=== PATIENT | male | born 1935 | race Caucasian/White ===

== ENCOUNTER 2023-01-08 09:15 | Outpatient (RCR) | payer MEDICARE, SELFPAY ==
--- NOTE | 2022-12-05 13:27 | OPREHPOC ---
Outpatient Therapy Plan of Care This is a Multidisciplinary Plan of Care that may contain components documented by all disciplines (PT, OT, and ST.) PT Problem 1 PT Problem #1 Knowledge Deficit PT Goal 1 Goal Independent with HEP Target Visit 8 PT Problem 2 PT Problem #2 Pain PT Goal 1 Goal decrease to pain to 1/10 with stairs and walking up hills Target Visit 8 PT Problem 3 PT Problem #3 Impaired Flexibility PT Goal 1 Goal -30 degrees VALARIE hamstrings Target Visit 8 PT Goal 2 Goal centralization of symptoms to hip or higher Target Visit 8 PT Problem 4 PT Problem #4 Impaired Strength PT Goal 1 Goal VALARIE hips extension and abduction 4/5 Target Visit 8
--- NOTE | 2022-12-05 13:27 | PTOPEVAL1 ---
Assessment and note entered by Zeus Crump, PT Evaluation Information Assessment Status Evaluation Diagnosis Sacroiliac joint pain Onset 1 year Subjective Information Patient report having back surgery 15 years ago and about a year ago noticing more pain in her R back along with sciatic symptoms down the R leg, but only to about the knee. The patient has trouble walking up hills picking up heavy objects, going up and down steps and curbs, laying on the R side, and putting on pants in standing position. Patient has had multiple injections in his back, PSIS, and greater trochanteric bursa. Was previously going to therapy up in [place] where therapist told him he had a gluteal tear. The patient also uses Tylenol about 80% of the nights before bed and uses Blue Emu and stands in the hot shower on the area as other forms of pain relief. Patient walking with a cane because he does not trust his balance and it does somewhat relieve the pain. Reported Pain Level Pain Score 1: Self Report Assessment PT Clinical Summary Hitesh is an 87 year old male coming into the clinic with a diagnosis of R PSIS pain with radiating symptoms down to the knee on the R side. Patient has tight calfs, hamstrings, and piriformis to go with weakness in his core and hip abduction and extension. Patient does have a positive slump test, but no other special tests. Physical therapy will work on stretching and strengthening of the lower body to put him in better alignment and modalities and manual therapy as needed for pain. Plan of Care Interventions Electrical Stimulation,Gait Training,Hot Pack/Cold Pack,Manual Therapy,Neuro Re-education,Patient/ Caregiver Education,Therapeutic Activities, Therapeutic Exercise,Ultrasound Other Interventions cupping, taping, IASTM PT Services Indicated Yes Treatment Frequency and 2x/wk for 4 weeks Duration These treatments will address the objective and functional deficits as defined above. The patient will be advanced safely and appropriately in order for the patient to progress towards his/her prior level of function. Additional exercises will be introduced and as well as a comprehensive home exercise program upon discharge, if needed, ?to ensure carryover of functional gains achieved in the clinic. This treatment plan has been reviewed and agreement upon by the patient.
--- NOTE | 2023-01-02 11:48 | PTOPPROG ---
Assessment and note entered by Zeus Crump, PT Evaluation Information Assessment Status Progress Diagnosis SI joint Onset 1 year Subjective Information Patient reports that he is able to walk more and get around easier, but is having more pain not only down the RLE which is where everything started , but also down the LLE. Patient states that he wants to keep on doing therapy, because he would rather be in a little bit of pain and getting out and moving around than sitting in his chair in his house and doing nothing but not being in pain. Assessment PT Clinical Summary Hitesh is an 87 year old male coming into the clinic with a diagnosis of SI joint pain. Patient was evaluated on 12/05/22. Patient has attended 8 sessions and met his strengthening and flexibility goal, but not his pain goals, in fact pain is worse. Patient reports being immobile for a while before this and is moving around better, but increased pain. Physical therapy and patient discussed that the pain is still under 5/10 and may be increased while the body is getting adjusted to increased flexibility and muscle pull. Patient and therapist are okay with continuing therapy as long as pain does not increase to severe pain. Plan of Care Interventions Electrical Stimulation,Gait Training,Hot Pack/Cold Pack,Manual Therapy,Neuro Re-education,Patient/ Caregiver Education,Therapeutic Activities, Therapeutic Exercise,Ultrasound Other Interventions cupping, taping, IASTM PT Services Indicated Yes Treatment Frequency and 1-x/wk 4 visits Duration These treatments will address the objective and functional deficits as defined above. The patient will be advanced safely and appropriately in order for the patient to progress towards his/her prior level of function. Additional exercises will be introduced and as well as a comprehensive home exercise program upon discharge, if needed, ?to ensure carryover of functional gains achieved in the clinic. This treatment plan has been reviewed and agreement upon by the patient.
--- NOTE | 2023-01-08 10:25 | PTOPDC ---
Assessment and note entered by Zeus Crump, PT Evaluation Information Assessment Status Discharge - Pt Not Present Diagnosis SI joint Onset 1 year Subjective Information Patient was re-evaluated last week and after thinking about it over the weekend, patient thinks he is good with his HEP and wishes to be discharged. Reported Pain Level Pain Score 2: Self Report Assessment PT Clinical Summary Hitesh is an 87 year old male coming into the clinic with a diagnosis of SI joint pain. Patient was evaluated on 12/05/22. Patient has attended 8 sessions and met his strengthening and flexibility goal, but not his pain goals, in fact pain is worse. Patient reports being immobile for a while before this and is moving around better, but increased pain. Physical therapy and patient discussed at length pros and cons of continuing therapy and after thinking about it over the weekend patient has elected to be discharged. Plan of Care PT Services Indicated Yes
== END 2023-01-08 10:47 | disposition home or self-care (01) ==
LOC: ANHPT 09:15
PROVIDERS: PCP Family Medicine; Visit Provider Chiropractor
DX: M53.3 Sacrococcygeal disorders, not elsewhere classified (principal)
CPT/HCPCS: 97110; 97112; 97140; 97161; 97530

== ENCOUNTER 2023-02-16 18:54 | Inpatient (IN) | payer MEDICARE, SELFPAY ==
--- NOTE | ~2023-02-16 | CT_ITS ---
CT of the Abdomen and Pelvis: Indication: Abdominal Technique: 2.5 mm axial scans were obtained through the abdomen and pelvis following intravenous adm inistration of 100 cc of Omnipaque 350. Dose reduction technique was used on this scan by utilizing a utomated exposure control and iterative reconstruction technique. The dose-length product (DLP) was 8 09.34 mGy-cm. Findings: Scans through the lung bases demonstrate mild bibasilar atelectatic change. The liver, spleen, pancreas, and adrenal glands are within normal limits. There is probable mild gall bladder wall thickening. Parapelvic renal cysts are present. No evidence of aortic aneurysm. No lymp hadenopathy. There is a large left inguinal hernia, containing a large portion of the sigmoid colon and mesenteric fat. No bowel obstruction or bowel wall thickening seen. There is mild colonic diverticulosis. Images through the pelvis were performed. Urinary bladder unremarkable. Prostate gland is enlarged. N o ascites. Impression: Distended gallbladder with mild gallbladder wall thickening. Consider mild acute cholecystitis. Consi carley ultrasound and/or HIDA scan for further evaluation as indicated. Large left regarding containing a large portion of sigmoid colon and mesenteric fat. No bowel obstruc tion or bowel wall thickening. Reviewed, dictated and finalized at location M. Impression: Distended gallbladder with mild gallbladder wall thickening. Consider mild acut e cholecystitis. Consider ultrasound and/or HIDA scan for further evaluation as indicated. Large left regarding containing a large portion of sigmoid colon and mesenteric fat. No bowel obstruction or bowel wall thickening.
[2023-02-16 18:54] VITALS: BP 189/86; PULSE 88; RESP 16; TEMP 36.6; O2SAT 99
--- NOTE | 2023-02-16 19:01 | ECG_ITS ---
Measurements Intervals [place] Rate: 78 P: 81 ND: 197 QRS: -18 QRSD: 144 T: -3 QT: 365 QTc: 417 Interpretive Statements SINUS RHYTHM ATRIAL PREMATURE COMPLEX RIGHT BUNDLE BRANCH BLOCK ABNORMAL ECG NO PREVIOUS ECG AVAILABLE FOR COMPARISON Electronically Signed On 02-16-2023 19:47:40 CDT by Guanaco Casillas D.O.
[2023-02-16 19:13] LABS: Basophils Percent Auto 0.4 % (0.2-1.2); Eosinophils Absolute Auto 0.4 K/mm3 (0-0.3); Eosinophils Percent Auto 3.7 % (0-4.4); Hematocrit 44.9 % (42.0-52.0); Immature Granulocyte Absolute 0.05 K/mm3 (0.00-0.031); Immature Granulocyte Percent A 0.5 % (0-0.5); Lymphocytes Absolute Auto 1.41 K/mm3 (0.9-3.2); Lymphocytes Percent Auto 13.5 % (18.3-44.2); Mean Corpuscular HGB Conc 33.4 g/dl (32-36); Mean Corpuscular Hemoglobin 31.9 pg (26-34); Mean Corpuscular Volume 95.5 fl (80-100); Mean Platelet Volume 9.5 fl (7.4-10.4); Monocytes Percent Auto 9.6 % (2.6-8.5); Neutrophils Absolute Auto 7.6 K/mm3 (1.3-6.7); Neutrophils Percent Auto 72.3 % (45.5-73.1); Platelet Count Result 262 k/mm3 (150-375); Red Cell Distribution Width 13.2 % (11.5-14.5); White Blood Count 10.5 K/mm3 (4.5-10.0)
[2023-02-16 19:22] LABS: Alanine Aminotransferase 55 U/L (6-50); Albumin Level 4.2 g/dL (3.5-5.1); Alkaline Phosphatase 128 U/L (38-126); Anion Gap 6 mmol/L (8-16); Aspartate Amino Transferase 36 U/L (17-59); Bilirubin,Total 0.4 mg/dL (0.2-1.3); Blood Urea Nitrogen 29 mg/dL (9-20); Calcium 9.3 mg/dL (8.4-10.2); Carbon Dioxide 26 mmol/L (22-30); Chloride 107 mmol/L (98-107); Estimated CRCL calculation 36 ml/min; Estimated Glomerular Filt Rate 48; Glucose 139 mg/dL (65-110); Lipase 212 U/L (23-300); Potassium 4.1 mmol/L (3.4-5.0); Sodium 139 mmol/L (137-145)
[2023-02-16] MEDS: ACETAMINOPHEN 500 MG TABLET 1000 MG PO (21:06)
[2023-02-16 21:08] VITALS: BP 189/89; PULSE 75; RESP 18; O2SAT 97
[2023-02-17] VITALS (16 sets, daily range): BP systolic 138–186; BP diastolic 58–98; PULSE 67–99; RESP 14–22; TEMP 35.8–37; O2SAT 91–100; BMI 30.7
[2023-02-17] MEDS: MORPHINE SULFATE (*CRX) 2 MG/ML INJ IV PUSH (01:12)
[2023-02-17 01:18] LABS: Appearance Urine Clear (Clear); Bacteria Urine None Seen /hpf; Bilirubin Urine Negative (Negative); Blood Urine Negative (Negative); Color Urine Yellow (Yellow); Glucose Urine UA Negative (Negative); Ketones Urine Negative (Negative); Leukocyte Esterase Ur Negative LEU/UL (Negative); Nitrate Urine Negative (Negative); Protein Urine 1+ mg/dL (Negative); RBC Urine 0-2 /hpf (0-2); Specific Grav Ur 1.022 (1.001-1.035); Squamous Epithelial Cell Urine None seen /hpf (Few); Urobilinogen Urine 0.2 mg/dL (<2.0); WBC Urine 0-5 /hpf
[2023-02-17 01:21] LABS: Lipase 179 U/L (23-300)
[2023-02-17 01:34] LABS: Add Urine Microscopic? YES; Troponin I 0.018 ng/mL (0.000-0.034)
--- NOTE | 2023-02-17 03:18 | PC.NURSE ---
Assumed care of pt from BRAEDEN Boucher at this time.
--- NOTE | 2023-02-17 04:19 | ED.ABDPAIN ---
HPI - Abdominal Pain General Chief Complaint: Abdominal Pain Stated Complaint: epigastric/back pain Time Seen by Provider: 02/17/23 00:27 History of Present Illness HPI narrative: Patient presents to the emergency department from home with family. He has severe right upper quadrant pain that radiates around to his back. Denies nausea vomiting and diarrhea. Denies fevers chills. Overall patient is generally healthy. His contributes to the history and states he also has a history of enlarged prostate. Patient states he has been seeing urology. Related Data Home Medications Medication Instructions Recorded Confirmed alprazolam 0.25 mg tablet mg 02/17/23 donepezil 5 mg tablet mg 02/17/23 famotidine 20 mg tablet mg 02/17/23 finasteride 5 mg tablet mg 02/17/23 losartan 25 mg tablet mg 02/17/23 tamsulosin 0.4 mg capsule mg PO 02/17/23 Review of Systems Review of Systems: CONSTITUTIONAL: Denies fever, chills, or sweats. EYES: Denies visual changes, redness, or discharge. ENT: Denies rhinorrhea, congestion, sore throat, or otalgia. CARDIOVASCULAR: Denies chest pain, palpitations, or edema. RESPIRATORY: Denies cough or dyspnea. GASTROINTESTINAL: Denies nausea, vomiting, or diarrhea. Positive for abdominal pain GENITOURINARY: Denies dysuria or hematuria. SKIN: Denies rash or itching. MUSCULOSKELETAL: Denies joint pain, or myalgia. Positive for back pain NEUROLOGIC: Denies headache, numbness, or weakness. PSYCHIATRIC: Denies anxiety or depression. Exam Narrative: GENERAL: Well-appearing, well-nourished, and in no acute distress. HEAD: Normocephalic, atraumatic. EYES: PERRLA and EOMI. ENT: Nares clear, no rhinorrhea or epistaxis. Mucous membranes moist. NECK: Supple. CHEST: Clear to auscultation. No respiratory distress. HEART: Regular rate and rhythm. ABDOMEN: Soft, nontender, nondistended. EXTREMITIES: Normal range of motion. No edema. SKIN: Warm, dry, no rash. NEURO: No focal deficits. Alert and oriented x3. PSYCH: Normal mood and affect. Course Course Emergency Course: Differential diagnosis includes but not limited to cholecystitis, kidney stone, pyelonephritis, pneumonia Telemetry ordered due to upper abdominal pain/chest pain to evaluate for dysrhythmias. Evaluated by myself. Rhythm NSR Rate 65 Vital Signs Vital signs: Vital Signs Temperature 36.6 C 02/16/23 18:54 Pulse Rate 88 02/16/23 18:54 Respiratory Rate 16 02/16/23 18:54 Blood Pressure 189/86 H 02/16/23 18:54 Pulse Oximetry 99 02/16/23 18:54 Temperature 36.6 C 02/16/23 18:54 Pulse Rate 76 02/17/23 00:35 Respiratory Rate 15 02/17/23 00:35 Blood Pressure 186/88 H 02/17/23 00:35 Pulse Oximetry 98 02/17/23 00:35 MDM - Abdominal Pain MDM Narrative Medical decision making narrative: CT positive for acute cholecystitis. Patient admitted to hospitalist after consulting general surgery. Zosyn ordered. Patient kept NPO. Lab Data 02/16/23 19:04 02/16/23 19:04 Labs: Lab Results 02/16/23 02/17/23 02/17/23 Range/Units 19:04 00:57 00:57 WBC 10.5 H (4.5-10.0) K/mm3 RBC 4.70 (4.6-6.20) M/mm3 Hgb 15.0 (14.0-18.0) g/dL Hct 44.9 (42.0-52.0) % MCV 95.5 (80-100) fl MCH 31.9 (26-34) pg MCHC 33.4 (32-36) g/dl RDW 13.2 (11.5-14.5) % Plt Count 262 (150-375) k/mm3 MPV 9.5 (7.4-10.4) fl Immature Gran % (Auto) 0.5 (0-0.5) % Neut % (Auto) 72.3 (45.5-73.1) % Lymph % (Auto) 13.5 L (18.3-44.2) % [place] % (Auto) 9.6 H (2.6-8.5) % Eos % (Auto) 3.7 (0-4.4) % Baso % (Auto) 0.4 (0.2-1.2) % Lymph # (Auto) 1.41 (0.9-3.2) K/mm3 [place] # (Auto) 1.0 H (0.1-0.6) K/mm3 Eos # (Auto) 0.4 H (0-0.3) K/mm3 Baso # (Auto) 0.0 (0.0-0.1) K/mm3 Abs Immat Gran (auto) 0.05 H (0.00-0.031) K/mm3 Absolute Neuts (auto) 7.6 H (1.3-6.7) K/mm3 Absolute Nucleated RBC 0.0 (0.0-0.012) K/mm3 Nucl
[2023-02-17] MEDS: PIPERACILLIN/TAZ 2.25G/NS 50ML 2.25 GM/50 ML BAG IVPB ×4 (05:01→22:50)
--- NOTE | 2023-02-17 06:10 | ADMGEN ---
This patient, Rome Ji, was admitted to 3 [facility] Surg Room 303-01. Patient/family oriented to hospital policies and general routines including ID bracelet, bed and alarms, visiting hours, pain management, procedures, bathroom and other care routines, personal items, smoking policy, room service/diet, and visiting hours. Information on how to activate the Rapid Response Team has been discussed. Patient/Family are encouraged to report perceived risks to care and to ask questions if they do not understand what they are told or what they should do.
[2023-02-17] MEDS: HYDROmorphone HCL INJ (*CRX) 1 MG/ML SYR 0.5 MG IV PUSH ×2 (07:00→11:22)
[2023-02-17] MEDS: TAMSULOSIN HCL 0.4 MG CAPSULE PO (08:45)
[2023-02-17] MEDS: FAMOTIDINE 20 MG TABLET PO (08:45)
[2023-02-17] MEDS: allopurinoL 100 MG TABLET PO (08:46)
[2023-02-17] MEDS: FINASTERIDE 5 MG TABLET PO (08:46)
[2023-02-17] MEDS: LORATADINE 10 MG TABLET PO (08:46)
[2023-02-17] MEDS: DONEPEZIL HCL 5 MG TABLET PO (08:46)
--- NOTE | 2023-02-17 10:44 | PM.IMHP ---
H&P: HPI History of Present Illness Date/Time: 02/17/23 10:44 Chief Complaint: Patient presents to the emergency department from home with family.? He has severe right upper quadrant pain that radiates around to his back.? Denies nausea vomiting and diarrhea.? Denies fevers chills.? Overall patient is generally healthy.? His contributes to the history and states he also has a history of enlarged prostate.? Patient states he has been seeing urology. Review of Systems Review of Systems: Ten point review systems negative [facility] Family History Family History Father Hypertension Cerebral hemorrhage Mother Hypertension Sibling Hypertension Parkinsons Social History Social History Smoking packs per day: 1 Smoking cigarettes per day: 20.0 Years smoked: 4 Smoking pack-years: 4.00 Smoking status: Former smoker Alcohol intake: never Substance use type: does not use Lack of Transportation: YES Lack of Food: Never True Current Housing: I Have Housing Concerned About Future Housing: No Difficulty Paying Gas/Electric Bills: No Difficulty Paying for Meds: No Currently Unemployed: No Education: Master's Degree or Higher Difficulty w/ Childcare or Family Care: No Spiritual care concerns: No Meds Home Medications and Allergies Home Medications Medication Instructions Recorded Confirmed Type allopurinol 100 mg tablet 100 mg PO DAILY 02/17/23 02/17/23 History alprazolam 0.25 mg tablet 0.25 mg PO TID PRN Anxiety 02/17/23 02/17/23 History aspirin 81 mg tablet,delayed 81 mg PO DAILY 02/17/23 02/17/23 History release (Adult Low Dose Aspirin) donepezil 5 mg tablet 5 mg PO DAILY 02/17/23 02/17/23 History famotidine 20 mg tablet 20 mg PO DAILY 02/17/23 02/17/23 History fexofenadine 180 mg tablet 180 mg PO DAILY 02/17/23 02/17/23 History finasteride 5 mg tablet 5 mg PO DAILY 02/17/23 02/17/23 History losartan 25 mg tablet 25 mg PO DAILY 02/17/23 02/17/23 History tamsulosin 0.4 mg capsule 0.4 mg PO DAILY 02/17/23 02/17/23 History Allergies Allergy/AdvReac Type Severity Reaction Status Date / Time amlodipine AdvReac Unknown Verified 02/17/23 06:59 amoxicillin AdvReac Diarrhea Verified 02/17/23 06:59 enalapril AdvReac Unknown Verified 02/17/23 06:59 latex AdvReac Rash Verified 02/17/23 06:59 verapamil AdvReac Unknown Verified 02/17/23 06:59 zolpidem [From Ambien] AdvReac Agitated Verified 02/17/23 06:59 Vital Signs Vital Signs - 24 hr 02/16/23 18:54 02/16/23 21:08 02/17/23 00:35 Temperature 97.8 F Pulse Rate 88 75 76 Respiratory Rate 16 18 15 Blood Pressure 189/86 H 189/89 H 186/88 H Pulse Oximetry 99 97 98 Oxygen Delivery 02/17/23 06:15 02/17/23 08:55 Temperature 97.9 F Pulse Rate 76 Respiratory Rate 16 Blood Pressure 169/98 H Pulse Oximetry 99 Oxygen Delivery Room Air Exam Narrative: General: alert and oriented Psych: appropriate mood nad affect Eyes: PERRLA Neck: Trachea midline, no new lesions Skin: no changes Lungs: CTA Cardiac: Normal S1,S2, no MGR ABD: soft, nd, nt, nbs Ext: no new lesions, no cce Vasc: Pulses intact H&P: Results Labs Labs: Short CBC 02/16/23 Range/Units 19:04 WBC 10.5 H (4.5-10.0) K/mm3 Hgb 15.0 (14.0-18.0) g/dL Hct 44.9 (42.0-52.0) % Plt Count 262 (150-375) k/mm3 [facility] 02/16/23 19:04 Sodium 139 Potassium 4.1 Chloride 107 Carbon Dioxide 26 BUN 29 H Creatinine 1.40 H Glucose 139 H Calcium 9.3 Cardiac Enzymes 02/17/23 02/17/23 Range/Units 00:57 00:57 Troponin I Cancelled 0.018 Liver Function 02/16/23 Range/Units 19:04 Total Bilirubin 0.4 (0.2-1.3) mg/dL AST 36 (17-59) U/L ALT 55 H (6-50) U/L Alkaline Phosphatase 128 H (38-126) U/L Albumin 4.2 (3.5-5.1) g/dL Urine 02/17/23 Range/Units 00:57 Uri
--- NOTE | 2023-02-17 12:56 | PM.CNGS ---
Assessment and Plan Assessment and plan (1) Acute cholecystitis without calculus: Code(s): K81.0 - Acute cholecystitis Status: Acute Assessment and Plan: CT evidence of acute cholecystitis. Patient continues to have abdominal pain and is tender on exam. Discussed case with Dr. Stafford. Discussed treatment options with the patient including dietary/lifestyle modifications versus proceeding with a laparoscopic cholecystectomy by Dr. Stafford under general anesthesia. Description of the procedure, risks, benefits, expected outcomes, and expected recovery were discussed with the patient in detail. We discussed the risks of bile leak and bile duct injury, liver/bowel injury, bleeding, and infection. Patient wishes to proceed with surgery. Family agrees. Continue IV Zosyn, NPO, IV fluids, and analgesics pre-operatively. Plan to go to the OR today for cholecystectomy. (2) Left inguinal hernia: Code(s): K40.90 - Unilateral inguinal hernia, without obstruction or gangrene, not specified as recurrent Status: Acute Assessment and Plan: Chronic large left inguinal hernia with sigmoid colon and mesenteric fat noted on CT. No signs of obstruction or strangulation. Only partially reducible on exam. He is asymptomatic and this is not contributing to his acute issues. Discussed these findings with the patient and signs/symptoms of incarceration/strangulation and when to seek medical care. May follow-up as an outpatient to discuss surgical repair once acute issues have resolved. (3) Hypertension: Qualifiers: Hypertension type: unspecified Qualified Code(s): I10 - Essential (primary) hypertension Code(s): I10 - Essential (primary) hypertension Status: Chronic (4) Dementia: Code(s): F03.90 - Unspecified dementia, unspecified severity, without behavioral disturbance, psychotic disturbance, mood disturbance, and anxiety Status: Chronic Plan I have discussed the patient's case and plan of care with Dr. Stafford. Thank you for allowing us to see the patient in consultation and we will continue to follow along with you. History of Present Illness Consult details Consult date: 02/17/23 Reason for consult: other (Acute cholecystitis) Requesting physician: Jerrod Leonard MD Narrative: This is an 87-year-old man who presented to the ER early this morning with complaints of epigastric and RUQ abdominal pain x 1 day. The patient has dementia, but answers questions appropriately. His history is obtained by both the patient and review of the electronic medical record. He reports dealing with epigastric abdominal pain and heartburn intermittently for the past few months. Yesterday, he had a new onset of RUQ abdominal pain that radiated to his mid back yesterday morning. This was different than his typical epigastric pain. His pain was severe and he presented to the ER for evaluation[place] [address], creatinine 1.4, total bilirubin 0.4, AST 36, ALT 55, alk-phos 128, lipase normal. Troponin negative. CT scan of the abdomen and pelvis showed distended gallbladder with gallbladder wall thickening, possible acute cholecystitis. Also incidentally noted was a large left inguinal hernia containing sigmoid colon and mesenteric fat with no evidence of a bowel obstruction or bowel wall thickening. The patient was admitted to the hospitalist service. He was started on IV Zosyn. He is still NPO. His and son are at the bedside and help provide history as well. The patient is still epigastric and right upper quadrant abdominal pain this morning. He reports having a left inguinal hernia for many years. Denies any pain or other issues with the hernia. Bowels have been moving normally. Denies nausea, vomiting, fever, or chills. No other complaints at this time. Review of Systems Review of Systems: All systems reviewed & are unremarkable except as noted in HPI and below [facility]
[2023-02-17] MEDS: ALPRAZolam (*CRX) 0.25 MG TABLET PO ×2 (13:08→20:42)
[2023-02-17 13:29] LABS: Glucose Point of Care 114 mg/dl (65-105)
--- NOTE | 2023-02-17 13:51 | WPDHPUPDATE1 ---
History and Physical Update Update Date/Time: 02/17/23 13:51 History and Physical has been reviewed, including an updated exam of the patient. There are NO changes in the patient's condition. Risks, benefits, and alternatives have been discussed and questions answered. Patient agrees to proceed with procedure.
[2023-02-17] MEDS: LACTATED RINGERS 1,000 ML 30 ML IV CONT ×2 (14:20→16:37)
--- NOTE | 2023-02-17 14:40 | WPDHPUPDATE1 ---
History and Physical Update Update Date/Time: 02/17/23 14:40 History and Physical has been reviewed, including an updated exam of the patient. There are NO changes in the patient's condition. Risks, benefits, and alternatives have been discussed and questions answered. Patient agrees to proceed with procedure.
[2023-02-17] MEDS: ACETAMINOPHEN 500 MG TABLET 1000 MG PO (14:45)
--- NOTE | 2023-02-17 15:04 | WPDANESEPPF ---
Anes - Initial Pre Proc Eval Procedure: Operation Date: 02/17/23 17:00 Proposed Procedures p Laparoscopic Cholecystectomy - Cecile Stafford MD Date/Time: 02/17/23 15:04 Surgeon: Marlyn Angel DO Pre Op Diagnosis: Acute piper Patient Data Age: 87 Gender: M Height: 1.68 m Weight: 86.4 kg Last Vital Signs Temp 37.0 C 02/17/23 14:43 Pulse 67 02/17/23 14:43 Resp 16 02/17/23 14:43 BP 179/83 H 02/17/23 14:43 Pulse Ox 97 02/17/23 14:43 O2 Del Method Room Air 02/17/23 14:43 Allergies Allergy/AdvReac Type Severity Reaction Status Date / Time amlodipine AdvReac Unknown Verified 02/17/23 06:59 amoxicillin AdvReac Diarrhea Verified 02/17/23 06:59 enalapril AdvReac Unknown Verified 02/17/23 06:59 latex AdvReac Rash Verified 02/17/23 06:59 verapamil AdvReac Unknown Verified 02/17/23 06:59 zolpidem [From Ambien] AdvReac Agitated Verified 02/17/23 06:59 Home Medications Medication Instructions Recorded Confirmed Type allopurinol 100 mg tablet 100 mg PO DAILY 02/17/23 02/17/23 History alprazolam 0.25 mg tablet 0.25 mg PO TID PRN Anxiety 02/17/23 02/17/23 History aspirin 81 mg tablet,delayed 81 mg PO DAILY 02/17/23 02/17/23 History release (Adult Low Dose Aspirin) donepezil 5 mg tablet 5 mg PO DAILY 02/17/23 02/17/23 History famotidine 20 mg tablet 20 mg PO DAILY 02/17/23 02/17/23 History fexofenadine 180 mg tablet 180 mg PO DAILY 02/17/23 02/17/23 History finasteride 5 mg tablet 5 mg PO DAILY 02/17/23 02/17/23 History losartan 25 mg tablet 25 mg PO DAILY 02/17/23 02/17/23 History tamsulosin 0.4 mg capsule 0.4 mg PO DAILY 02/17/23 02/17/23 History Laboratory Tests 02/16/23 02/17/23 02/17/23 19:04 00:57 00:57 WBC 10.5 H K/mm3 (4.5-10.0) RBC 4.70 M/mm3 (4.6-6.20) Hgb 15.0 g/dL (14.0-18.0) Hct 44.9 % (42.0-52.0) MCV 95.5 fl (80-100) MCH 31.9 pg (26-34) MCHC 33.4 g/dl (32-36) RDW 13.2 % (11.5-14.5) Plt Count 262 k/mm3 (150-375) MPV 9.5 fl (7.4-10.4) Immature Gran % (Auto) 0.5 % (0-0.5) Neut % (Auto) 72.3 % (45.5-73.1) Lymph % (Auto) 13.5 L % (18.3-44.2) [place] % (Auto) 9.6 H % (2.6-8.5) Eos % (Auto) 3.7 % (0-4.4) Baso % (Auto) 0.4 % (0.2-1.2) Lymph # (Auto) 1.41 K/mm3 (0.9-3.2) [place] # (Auto) 1.0 H K/mm3 (0.1-0.6) Eos # (Auto) 0.4 H K/mm3 (0-0.3) Baso # (Auto) 0.0 K/mm3 (0.0-0.1) Abs Immat Gran (auto) 0.05 H K/mm3 (0.00-0.031) Absolute Neuts (auto) 7.6 H K/mm3 (1.3-6.7) Absolute Nucleated RBC 0.0 K/mm3 (0.0-0.012) Nucleated RBC % 0.0 % (0.0-0.2) Sodium 139 mmol/L (137-145) Potassium 4.1 mmol/L (3.4-5.0) Chloride 107 mmol/L (98-107) Carbon Dioxide 26 mmol/L (22-30) Anion Gap 6 L mmol/L (8-16) BUN 29 H mg/dL (9-20) Creatinine 1.40 H mg/dL (0.7-1.3) Estim Creat Clear Calc 36 ml/min Estimated GFR 48 L (59 - ) Glucose 139 H mg/dL (65-110) POC Capillary Glucose Calcium 9.3 mg/dL (8.4-10.2) Total Bilirubin 0.4 mg/dL (0.2-1.3) AST 36 U/L (17-59) ALT 55 H U/L (6-50) Alkaline Phosphatase 128 H U/L (38-126) Troponin I Cancelled 0.018 ng/mL (0.000-0.034) Total Protein 7.0 g/dL (6.3-8.2) Albumin 4.2 g/dL (3.5-5.1) Lipase 212 U/L 179 U/L (23-300) (23-300) Urine Color Yellow (Yellow) Urine Appearance Clear (Clear) Urine pH 5.0 (5.0-9.0) Ur Specific [place] 1.022 (1.001-1.035) Urine Protein 1+ H mg/dL (Negative) Urine Glucose (UA) Negative mg/dL (Negative) Urine Ketones Negative mg/dL (Negative)
[2023-02-17] MEDS: BUPIVACAINE/EPINEPHRINE 0.5% 50 ML VIAL 30 ML INFILTRATE (15:21)
--- NOTE | 2023-02-17 16:51 | W.PM.PROC2 ---
Procedure Note - Detailed Date of Procedure 02/17/23 Pre-op Diagnosis Acute cholecystitis, cholelithiasis Post-op Diagnosis Same Procedure Performed Laparoscopic cholecystectomy Surgeon Cecile Stafford MD Anesthesia General Indications 87-year-old male presented to the hospital complaining of severe right upper quadrant abdominal pain associated with nausea and vomiting. Workup including imaging significant for acute cholecystitis. Findings acute hydrops cholecystitis with cholelithiasis Description of Procedure The patient was taken to the operating room placed in the supine position. After adequate induction of general anesthesia, the patient was prepped and draped in normal sterile fashion. A time-out was then performed to verify the patient's identity as well as the procedure being performed. I then made a 5 mm incision in the infraumbilical region. Through this, a Veress needle was placed into the peritoneal cavity and CO2 gas was then insufflated. After adequate pneumoperitoneum was achieved, the Veress needle was removed and a 5 mm optiview trocar was placed through this incision under direct visualization. I then placed the laparoscope through this trocar site and under direct visualization placed a further 12 mm subxiphoid port as well as 2 additional 5 mm ports in the right upper abdomen. The gallbladder was then identified and was noted to be severely inflamed, distended, and noted gallstone impacted in the neck of the gallbladder. Given the amount of inflammation and distention, the gallbladder was decompressed. During decompression, it was noted that the patient had hydrops cholecystitis. Once decompressed, I was able to place a grasper at the dome of the gallbladder and this was retracted anterior and cephalad up over the liver. A 2nd retractor was then placed at the infundibulum and retracted laterally, this allowed visualization of the triangle of [place]. I then was able to visualize the cystic duct in its entirety from its proximal insertion into the gallbladder, to its distal junction with the common hepatic/common bile duct junction. There was a lot of inflammation and friability in this area. At this point, I carefully skeletonized the proximal cystic duct with the [place] dissector. I then clipped and transected the proximal cystic duct. Next I visualized the cystic artery. Again the artery was skeletonized, clipped, and transected. I then used the Bovie cautery to take down the peritoneal attachments of the gallbladder off the liver bed. This was difficult given the amount of inflammation in the posterior space. Once the gallbladder specimen was completely detached, an endo-pouch was placed through the 12 mm port site. I then placed the gallbladder specimen into the Endo pouch and removed the endo-pouch from the 12 mm port site. The specimen will now be sent to pathology for further review. I then copiously irrigated the right upper quadrant. Some mild oozing was noted in the liver bed and this was controlled with the bovie cautery. I then placed some hemostatic powder in the liver bed. Hemostasis was noted in the liver bed, the clips were noted to be in good position on both the cystic duct stump and the cystic artery stump. No other pathology was noted in the right upper quadrant. I then moved the laparoscope to the subxiphoid port. No iatrogenic injury or other pathology was noted in the lower abdomen. Given the amount of inflammation, the decision was made to leave a 19 [place] MARGARITA drain in the right upper quadrant coming out through the lateral-most 5 mm port. I then closed the 12 mm trocar site under direct visualization using the Jori cone and 0 Vicryl suture. At this point, the abdomen was desufflated and all ports removed. All port sites were then closed with 4.O Monocryl subcuticular sutures. Dermabond was placed on each incision. The patient tolerated the procedure well, was extubated in the operating room
[2023-02-17] MEDS: fentaNYL CITRATE INJ (*CRX) 100 MCG/2 ML VIAL 25 MCG IV PUSH ×6 (17:08→18:03)
[2023-02-17] MEDS: HYDROcodone/acetaminophen (*CRX) 5-325 MG TABLET 1 TAB PO ×2 (18:40→22:54)
[2023-02-17] MEDS: LOSARTAN POTASSIUM 25 MG TABLET PO (18:40)
[2023-02-18] VITALS (8 sets, daily range): BP systolic 115–179; BP diastolic 60–97; PULSE 76–96; RESP 14–18; TEMP 35.9–36.2; O2SAT 93–95
[2023-02-18] MEDS: HYDROmorphone HCL INJ (*CRX) 1 MG/ML SYR 0.5 MG IV PUSH ×2 (00:20→02:29)
[2023-02-18] MEDS: ALPRAZolam (*CRX) 0.25 MG TABLET PO ×3 (01:14→21:27)
[2023-02-18] MEDS: HYDROcodone/acetaminophen (*CRX) 5-325 MG TABLET 1 TAB PO ×4 (05:29→21:27)
[2023-02-18] MEDS: PIPERACILLIN/TAZ 2.25G/NS 50ML 2.25 GM/50 ML BAG IVPB ×4 (05:29→21:24)
--- NOTE | 2023-02-18 06:01 | PC.NURSE ---
This RN reviewed and approves of Zabrina Hall RN (license pending) charting and medication administrations.
[2023-02-18 06:55] LABS: Alanine Aminotransferase 87 U/L (6-50); Albumin Level 3.6 g/dL (3.5-5.1); Alkaline Phosphatase 97 U/L (38-126); Anion Gap 8 mmol/L (8-16); Aspartate Amino Transferase 84 U/L (17-59); Bilirubin,Total 1.1 mg/dL (0.2-1.3); Blood Urea Nitrogen 25 mg/dL (9-20); Calcium 8.6 mg/dL (8.4-10.2); Carbon Dioxide 27 mmol/L (22-30); Chloride 100 mmol/L (98-107); Estimated CRCL calculation 36 ml/min; Estimated Glomerular Filt Rate 48; Glucose 158 mg/dL (65-110); Potassium 4.5 mmol/L (3.4-5.0); Sodium 135 mmol/L (137-145)
[2023-02-18 07:06] LABS: Basophils Percent Auto 0.1 % (0.2-1.2); Hematocrit 43.7 % (42.0-52.0); Hemoglobin 14.2 g/dL (14.0-18.0); Immature Granulocyte Absolute 0.06 K/mm3 (0.00-0.031); Immature Granulocyte Percent A 0.4 % (0-0.5); Lymphocytes Absolute Auto 0.73 K/mm3 (0.9-3.2); Lymphocytes Percent Auto 4.6 % (18.3-44.2); Mean Corpuscular HGB Conc 32.5 g/dl (32-36); Mean Corpuscular Hemoglobin 31.3 pg (26-34); Mean Corpuscular Volume 96.3 fl (80-100); Mean Platelet Volume 10.1 fl (7.4-10.4); Monocytes Percent Auto 12.4 % (2.6-8.5); Neutrophils Absolute Auto 13.2 K/mm3 (1.3-6.7); Neutrophils Percent Auto 82.5 % (45.5-73.1); Platelet Count Result 256 k/mm3 (150-375); Red Blood Count 4.54 M/mm3 (4.6-6.20); Red Cell Distribution Width 13.2 % (11.5-14.5)
--- NOTE | 2023-02-18 07:38 | WPDANESPN ---
Anes - Prog Note Post-Op Date/Time: 02/18/23 07:38 Cardiovascular status: normal Respiratory status: normal Airway patency: baseline Mental status: baseline Post-Op hydration status: normal Vital Signs: Last Vital Signs Temp 97 F L 02/18/23 04:00 Pulse 84 02/18/23 04:00 Resp 16 02/18/23 04:00 BP 163/79 H 02/18/23 04:00 Pulse Ox 95 02/18/23 04:00 O2 Del Method Room Air 02/17/23 18:10 O2 Flow Rate 2 02/17/23 17:55 Pain Score (VAS): 5-9 I/O: Intake & Output 02/17/23 02/17/23 02/18/23 15:59 23:59 07:59 Intake Total 50 1600 300 Output Total 70 480 Balance 50 1530 -180 Laboratory Tests 02/18/23 06:09 02/17/23 02/17/23 02/18/23 13:24 13:45 06:09 WBC Pending RBC Pending Hgb Pending Hct Pending MCV Pending MCH Pending MCHC Pending RDW Pending Plt Count Pending MPV Pending Immature Gran % (Auto) Pending Neut % (Auto) Pending Lymph % (Auto) Pending [place] % (Auto) Pending Eos % (Auto) Pending Baso % (Auto) Pending Lymph # (Auto) Pending [place] # (Auto) Pending Eos # (Auto) Pending Baso # (Auto) Pending Abs Immat Gran (auto) Pending Absolute Neuts (auto) Pending Absolute Nucleated RBC Pending Nucleated RBC % Pending Sodium 135 L Potassium 4.5 Chloride 100 Carbon Dioxide 27 Anion Gap 8 BUN 25 H Creatinine 1.40 H Estim Creat Clear Calc 36 Estimated GFR 48 L Glucose 158 H POC Capillary Glucose 114 H Calcium 8.6 Total Bilirubin 1.1 AST 84 H ALT 87 H Alkaline Phosphatase 97 Total Protein 7.0 Albumin 3.6 Blood Type B Negative Antibody Screen Negative Post-procedural complaints: none Patient Feedback: Patient satisfied with anesthetic care.
[2023-02-18] MEDS: FINASTERIDE 5 MG TABLET PO (08:35)
[2023-02-18] MEDS: DONEPEZIL HCL 5 MG TABLET PO (08:35)
[2023-02-18] MEDS: FAMOTIDINE 20 MG TABLET PO (08:35)
[2023-02-18] MEDS: LORATADINE 10 MG TABLET PO (08:36)
[2023-02-18] MEDS: LOSARTAN POTASSIUM 25 MG TABLET PO (08:36)
[2023-02-18] MEDS: ASPIRIN 81 MG ENTERIC TABLET PO (08:36)
[2023-02-18] MEDS: TAMSULOSIN HCL 0.4 MG CAPSULE PO (08:36)
[2023-02-18] MEDS: allopurinoL 100 MG TABLET PO (08:36)
--- NOTE | 2023-02-18 11:03 | PM.IMPN ---
Progress Note: A&P Assessment and Plan (1) Acute cholecystitis without calculus: Code(s): K81.0 - Acute cholecystitis Status: Acute Assessment and Plan: sp surgery mario drain noted to be bloody appreciate surgical input pain control tolerating diet likely dc 1-2 days (2) Hypertension: Qualifiers: Hypertension type: unspecified Qualified Code(s): I10 - Essential (primary) hypertension Code(s): I10 - Essential (primary) hypertension Status: Chronic Assessment and Plan: Continue home meds (3) Gout: Code(s): M10.9 - Gout, unspecified Status: Chronic Assessment and Plan: Stable (4) Anxiety: Code(s): F41.9 - Anxiety disorder, unspecified Status: Chronic Assessment and Plan: Stable (5) Dementia: Code(s): F03.90 - Unspecified dementia, unspecified severity, without behavioral disturbance, psychotic disturbance, mood disturbance, and anxiety Status: Chronic Assessment and Plan: Stable Subjective Date/time seen: 02/18/23 11:03 Interval history: still having some pain after surgery mario drain noted w bloody fluid tolerating diet Exam Narrative: General: alert and oriented Psych: appropriate mood nad affect Eyes: PERRLA Neck: Trachea midline, no new lesions Skin: no changes Lungs: CTA Cardiac: Normal S1,S2, no MGR ABD: soft, nd, nt, nbs Ext: no new lesions, no cce Vasc: Pulses intact Objective Data Vital Signs Vital Signs: Vital Signs - 24 hr 02/17/23 14:00 02/17/23 14:43 02/17/23 16:40 Temperature 97.1 F L 98.6 F 97.2 F L Pulse Rate 71 67 88 Respiratory Rate 18 16 15 Blood Pressure 165/88 H 179/83 H 150/58 H Pulse Oximetry 97 97 100 Oxygen Delivery Room Air Simple Face Mask Oxygen Flow Rate 8 02/17/23 16:55 02/17/23 17:10 02/17/23 17:25 Temperature Pulse Rate 87 93 95 Respiratory Rate 18 16 15 Blood Pressure 138/62 163/72 H 158/90 H Pulse Oximetry 100 100 93 Oxygen Delivery Simple Face Mask Simple Face Mask Room Air Oxygen Flow Rate 8 8 02/17/23 17:40 02/17/23 17:55 02/17/23 18:10 Temperature Pulse Rate 89 99 85 Respiratory Rate 16 22 H 14 Blood Pressure 161/77 H 174/82 H 178/83 H Pulse Oximetry 91 99 99 Oxygen Delivery Room Air Nasal Cannula Room Air Oxygen Flow Rate 2 02/17/23 18:31 02/17/23 18:46 02/17/23 17:16 Temperature 96.5 F L 96.6 F L 97.1 F L Pulse Rate 82 94 96 Respiratory Rate 16 16 18 Blood Pressure 176/80 H 169/92 H 184/85 H Pulse Oximetry 97 96 97 Oxygen Delivery Oxygen Flow Rate 02/17/23 19:16 02/17/23 20:16 02/18/23 00:55 Temperature 97.1 F L 96.6 F L Pulse Rate 96 89 Respiratory Rate 18 16 Blood Pressure 184/85 H 172/80 H 173/92 H Pulse Oximetry 97 95 Oxygen Delivery Oxygen Flow Rate 02/18/23 00:00 02/18/23 04:00 02/18/23 08:00 Temperature 96.6 F L 97 F L 96.8 F L Pulse Rate 96 84 81 Respiratory Rate 18 16 16 Blood Pressure 179/97 H 163/79 H 153/77 H Pulse Oximetry 95 95 94 Oxygen Delivery Oxygen Flow Rate 02/18/23 08:30 02/18/23 09:12 Temperature Pulse Rate Respiratory Rate Blood Pressure Pulse Oximetry 93 Oxygen Delivery Room Air Room Air Oxygen Flow Rate Intake/Output Intake/Output: Intake & Output 02/15/23 02/16/23 02/17/23 02/18/23 23:59 23:59 23:59 23:59 Intake Total 1700 628 Output Total 70 680 Balance 1630 -52 Meds/Results Medications: Active Medications Generic Name Dose Route Start Last Admin Trade Name Freq PRN Reason Stop Dose Admin Hydrocodone Bitart/Acetaminophen 1 tab 02/17/23 18:23 02/18/23 05:29 Hydrocodone/Acetaminophen (*Crx) 5-325 Mg Tablet PO 1 tab Q4H PRN Administration Pain Rated 4-6 Allopurinol 100 mg 02/17/23 09:00 02/18/23 08:36 Allopurinol 100 Mg Tablet PO 100 mg DAILY IRON Administration Alprazolam 0.25 mg 02/17/23 08:00 02/18/23 08:35 Alprazolam (*Crx) 0.25 Mg Tablet PO 0.25 mg
--- NOTE | 2023-02-18 11:49 | PM.PNGS ---
Progress Note: A&P Assessment and Plan (1) Acute cholecystitis without calculus: Code(s): K81.0 - Acute cholecystitis Status: Acute Assessment and Plan: Postop day 1 laparoscopic cholecystectomy. Patient doing well. Will advance to a heart healthy diet. Monitor MARGARITA drain output. increase activity and ambulate today. Transition to oral analgesics. May need PT/OT evaluation if patient is week postoperatively. (2) Left inguinal hernia: Code(s): K40.90 - Unilateral inguinal hernia, without obstruction or gangrene, not specified as recurrent Status: Acute (3) Dementia: Code(s): F03.90 - Unspecified dementia, unspecified severity, without behavioral disturbance, psychotic disturbance, mood disturbance, and anxiety Status: Chronic Plan I have discussed the patient's case and plan of care with Dr. Stafford. Subjective Subjective Date/Time Seen: 02/18/23 11:49 Post Op day: 1 (Laparoscopic cholecystectomy) Patient reports: no new complaints, tolerating liquids well, flatus and afebrile Interval history: Patient doing well this morning. He reports his right upper quadrant abdominal pain has resolved since surgery and now he just complains of some incisional soreness. He did receive some IV Dilaudid overnight, but his pain is controlled this morning with oral analgesics. He is tolerating full liquids. He has not been up to walk in the room yet. Discussed with nursing and staff to get him up this morning to try ambulating. Review of Systems Review of Systems: All systems reviewed & are unremarkable except as noted in HPI and below Exam Const: General: comfortable, no acute distress and awake Orientation/consciousness: patient oriented x3 GI: Inspection: non-distended, incision (incisions dry and intact) and other (MARGARITA drain with bloody drainage) GI Palp: Yes Soft to palpation and Yes Tenderness to palpation present (GI) (incisional) Auscultation: normal bowel sounds Neuro: General: moves all extremities and no focal motor deficits Extrem: General: no calf tenderness and no edema Psych: Mental Status: mental status grossly normal Insight: Good insight present (Psych) Objective Data Vital Signs Vital Signs: Vital Signs - 24 hr 02/17/23 14:00 02/17/23 14:43 02/17/23 16:40 Temperature 97.1 F L 98.6 F 97.2 F L Pulse Rate 71 67 88 Respiratory Rate 18 16 15 Blood Pressure 165/88 H 179/83 H 150/58 H Pulse Oximetry 97 97 100 Oxygen Delivery Room Air Simple Face Mask Oxygen Flow Rate 8 02/17/23 16:55 02/17/23 17:10 02/17/23 17:25 Temperature Pulse Rate 87 93 95 Respiratory Rate 18 16 15 Blood Pressure 138/62 163/72 H 158/90 H Pulse Oximetry 100 100 93 Oxygen Delivery Simple Face Mask Simple Face Mask Room Air Oxygen Flow Rate 8 8 02/17/23 17:40 02/17/23 17:55 02/17/23 18:10 Temperature Pulse Rate 89 99 85 Respiratory Rate 16 22 H 14 Blood Pressure 161/77 H 174/82 H 178/83 H Pulse Oximetry 91 99 99 Oxygen Delivery Room Air Nasal Cannula Room Air Oxygen Flow Rate 2 02/17/23 18:31 02/17/23 18:46 02/17/23 17:16 Temperature 96.5 F L 96.6 F L 97.1 F L Pulse Rate 82 94 96 Respiratory Rate 16 16 18 Blood Pressure 176/80 H 169/92 H 184/85 H Pulse Oximetry 97 96 97 Oxygen Delivery Oxygen Flow Rate 02/17/23 19:16 02/17/23 20:16 02/18/23 00:55 Temperature 97.1 F L 96.6 F L Pulse Rate 96 89 Respiratory Rate 18 16 Blood Pressure 184/85 H 172/80 H 173/92 H Pulse Oximetry 97 95 Oxygen Delivery Oxygen Flow Rate 02/18/23 00:00 02/18/23 04:00 02/18/23 08:00 Temperature 96.6 F L 97 F L 96.8 F L Pulse Rate 96 84 81 Respiratory Rate 18 16 16 Blood Pressure 179/97 H 163/79 H 153/77 H Pulse Oximetry 95 95 94 Oxygen Delivery Oxygen Flow Rate 02/18/23 08:30 02/18/23 09:12 Temperature Pulse Rate Respiratory Rate Blood Pressure Pulse Oximetry 93 Oxygen Delivery Room Air Room Air Oxygen Flow Rate Intake/O
[2023-02-19] MEDS: HYDROcodone/acetaminophen (*CRX) 7.5-325 MG TABLET 1 TAB PO ×3 (01:56→13:37)
[2023-02-19] MEDS: PIPERACILLIN/TAZ 2.25G/NS 50ML 2.25 GM/50 ML BAG IVPB (05:52)
[2023-02-19] MEDS: ALPRAZolam (*CRX) 0.25 MG TABLET PO ×2 (05:56→16:07)
--- NOTE | 2023-02-19 06:00 | PC.NURSE ---
This nurse has reviewed and approves of Zabrina Hall (license pending RN) charting and medication administrations.
[2023-02-19 06:35] LABS: Basophils Percent Auto 0.3 % (0.2-1.2); Eosinophils Absolute Auto 0.1 K/mm3 (0-0.3); Eosinophils Percent Auto 0.5 % (0-4.4); Hematocrit 40.9 % (42.0-52.0); Hemoglobin 13.3 g/dL (14.0-18.0); Immature Granulocyte Absolute 0.07 K/mm3 (0.00-0.031); Immature Granulocyte Percent A 0.6 % (0-0.5); Lymphocytes Absolute Auto 1.05 K/mm3 (0.9-3.2); Lymphocytes Percent Auto 8.5 % (18.3-44.2); Mean Corpuscular HGB Conc 32.5 g/dl (32-36); Mean Corpuscular Hemoglobin 31.6 pg (26-34); Mean Corpuscular Volume 97.1 fl (80-100); Mean Platelet Volume 10.3 fl (7.4-10.4); Monocytes Absolute Auto 1.8 K/mm3 (0.1-0.6); Monocytes Percent Auto 14.4 % (2.6-8.5); Neutrophils Absolute Auto 9.3 K/mm3 (1.3-6.7); Neutrophils Percent Auto 75.7 % (45.5-73.1); Platelet Count Result 229 k/mm3 (150-375); Red Blood Count 4.21 M/mm3 (4.6-6.20); Red Cell Distribution Width 13.5 % (11.5-14.5); White Blood Count 12.3 K/mm3 (4.5-10.0)
[2023-02-19 06:40] VITALS: BP 133/89; PULSE 86; RESP 14; TEMP 35.8; O2SAT 92
[2023-02-19 06:49] LABS: Alanine Aminotransferase 72 U/L (6-50); Albumin Level 3.6 g/dL (3.5-5.1); Alkaline Phosphatase 86 U/L (38-126); Anion Gap 3 mmol/L (8-16); Aspartate Amino Transferase 52 U/L (17-59); Blood Urea Nitrogen 32 mg/dL (9-20); Calcium 8.3 mg/dL (8.4-10.2); Carbon Dioxide 31 mmol/L (22-30); Chloride 102 mmol/L (98-107); Estimated CRCL calculation 30 ml/min; Estimated Glomerular Filt Rate 38; Glucose 96 mg/dL (65-110); Potassium 4.4 mmol/L (3.4-5.0); Sodium 136 mmol/L (137-145)
[2023-02-19] MEDS: ASPIRIN 81 MG ENTERIC TABLET PO (08:43)
[2023-02-19] MEDS: LOSARTAN POTASSIUM 25 MG TABLET PO (08:43)
[2023-02-19] MEDS: allopurinoL 100 MG TABLET PO (08:43)
[2023-02-19] MEDS: DONEPEZIL HCL 5 MG TABLET PO (08:44)
[2023-02-19] MEDS: TAMSULOSIN HCL 0.4 MG CAPSULE PO (08:44)
[2023-02-19] MEDS: LORATADINE 10 MG TABLET PO (08:44)
[2023-02-19] MEDS: FAMOTIDINE 20 MG TABLET PO (08:44)
[2023-02-19] MEDS: FINASTERIDE 5 MG TABLET PO (08:44)
[2023-02-19 08:45] VITALS: O2SAT 94
--- NOTE | 2023-02-19 11:03 | PM.DS ---
DS: Admitting Diagnosis Discharge Date 02/19/2023 Admitting Diagnosis Acute cholecystitis DS: Discharge Diagnosis Discharge Diagnosis (1) Acute cholecystitis without calculus: Code(s): K81.0 - Acute cholecystitis Status: Acute DS: Summary Hospital Course Hospital Course: Patient admitted with acute cholecystitis. He underwent laparoscopic cholecystectomy by General surgery. Postoperative course was uneventful. He stable and he is eating okay and is being discharged home Time Spent with Patient Time attestation: Total time spent providing and/or coordinating discharge services: DS: Data Data Completed and Pending Completed studies during hospitalization: Pending at discharge 02/17/23 14:29 Surgical [PTH] Routine Labs on day of discharge: Labs from last 24 hours 02/19/23 05:42 WBC 12.3 H RBC 4.21 L Hgb 13.3 L Hct 40.9 L MCV 97.1 MCH 31.6 MCHC 32.5 RDW 13.5 Plt Count 229 MPV 10.3 Immature Gran % (Auto) 0.6 H Neut % (Auto) 75.7 H Lymph % (Auto) 8.5 L [place] % (Auto) 14.4 H Eos % (Auto) 0.5 Baso % (Auto) 0.3 Lymph # (Auto) 1.05 [place] # (Auto) 1.8 H Eos # (Auto) 0.1 Baso # (Auto) 0.0 Abs Immat Gran (auto) 0.07 H Absolute Neuts (auto) 9.3 H Absolute Nucleated RBC 0.0 Nucleated RBC % 0.0 Sodium 136 L Potassium 4.4 Chloride 102 Carbon Dioxide 31 H Anion Gap 3 L BUN 32 H Creatinine 1.70 H Estim Creat Clear Calc 30 Estimated GFR 38 L Glucose 96 Calcium 8.3 L Total Bilirubin 1.0 AST 52 ALT 72 H Alkaline Phosphatase 86 Total Protein 6.0 L Albumin 3.6 Discharge Plan Discharge Consulting providers: Cecile Stafford Discharging Clinician: John Monsalve Anticipated Discharge Date/Time: 02/19/23 11:02 Patient Disposition: Home, Self-Care Activity: no preference Diet: heart healthy Wound Care Instructions: keep dressing dry Discharge Instructions: DISCHARGE INSTRUCTION SHEET FOR HERNIA, GALLBLADDER AND APPENDIX SURGERIES DR. STAFFORD 1. Sponge bathe until MARGARITA drain is out. Keep MARGARITA drain dry. Empty and record drain output 1-2 times daily and as needed to keep the bulb to suction. Once you are having less than 30 mL of drainage from the drain in 1 day, then call the office to schedule an appointment to have it removed by Dr. Stafford. (Send patient with a cup to measure) 2. Call office for: Wound increasingly painful or bleeding Vomiting Fever of greater than 101 degrees 3. If no bowel movement for three days, take 1 oz. (30 ml) Milk of Magnesia or MiraLax 17g 1 to 2 times daily. 4. No heavy lifting > 10-15 pounds x 2 weeks for laparoscopic cholecystectomy or appendectomy. 5. No driving for 3 days or while taking narcotic pain medications. 6. Ice to surgical site for 48 hours (30 min on, then 30 min off). 7. Up walking 10-30 minutes three times per day. 8. Resume previous home medications. 9. Follow-up 10-14 days in office for wound check or as previously scheduled. ([id number]) 10. Oral pain medications prescription to be sent to pharmacy. Take Tylenol 500mg every 6 hours and Ibuprofen 600mg every 6 hours for the first 2 days, then as needed. 11. NUTRITION: Start out by drinking fluids and increase your diet as tolerated. If you experience nausea, try dry toast, crackers, and 7-UP. If nausea or vomiting persists, contact your surgeon?s office. 12. Gallbladders-Low Fat Diet for 2 weeks Patient Instructions: Antibiotic Form, Aspirin (By mouth), Pain Management in Older Adults ([place]), [facility] ([place]) Stand Alone Forms: General Discharge Information Follow-up/Referrals: Cecile Stafford MD [Physician] - 1 Week Harms,Hira Patel M.D. [Primary Care Provider] - Discharge Medications: New hydrocodone-acetaminophen 5-325 mg tablet 1 tablet PO Q6H PRN (Reason: pain) Qty: 20 0RF ciprofloxacin HCl [Cipro] 500 mg tablet
--- NOTE | 2023-02-19 12:08 | PM.PNGS ---
Progress Note: A&P Assessment and Plan (1) Acute acalculous cholecystitis: Code(s): K81.0 - Acute cholecystitis Status: Acute Assessment and Plan: better, mary low fat diet, ok to dc home c MARGARITA and po abx, po analgesia, teach drain care and f/u 1 wk Subjective Subjective Date/Time Seen: 02/19/23 12:08 Interval history: feels ok, some abd/incisional soreness Review of Systems Review of Systems: All systems reviewed & are unremarkable except as noted in HPI and below Exam Const: General: cooperative, comfortable and no acute distress Resp: Auscultation: clear to auscultation bilaterally Cardio: Rate: regular rate Rhythm: regular rhythm GI: Inspection: normal to inspection, distended and incision GI Palp: Yes abdominal tenderness, Yes Soft to palpation, Yes Tenderness to palpation present (GI), No Guarding due to palpation present (GI) and No Rigid due to palpation Other: MARGARITA c s/s discharge Objective Data Vital Signs Vital Signs: Vital Signs - 24 hr 02/18/23 15:57 02/18/23 22:00 02/19/23 06:40 Temperature 36.1 C L 36.2 C L 35.8 C L Pulse Rate 76 83 86 Respiratory Rate 16 14 14 Blood Pressure 117/60 133/70 133/89 Pulse Oximetry 95 93 92 Oxygen Delivery Oxygen Flow Rate 02/19/23 08:45 Temperature Pulse Rate Respiratory Rate Blood Pressure Pulse Oximetry 94 Oxygen Delivery Nasal Cannula Oxygen Flow Rate 2 Intake/Output Intake/Output: Intake & Output 02/16/23 02/17/23 02/18/23 02/19/23 23:59 23:59 23:59 23:59 Intake Total 1700 1138 530 Output Total 70 1015 130 Balance 1630 123 400 Meds/Results Medications: Active Medications Generic Name Dose Route Start Last Admin Trade Name Freq PRN Reason Stop Dose Admin Hydrocodone Bitart/Acetaminophen 1 tab 02/17/23 18:23 02/18/23 21:27 Hydrocodone/Acetaminophen (*Crx) 5-325 Mg Tablet PO 1 tab Q4H PRN Administration Pain Rated 4-6 Hydrocodone Bitart/Acetaminophen 1 tab 02/18/23 15:45 02/19/23 05:56 Hydrocodone/Acetaminophen (*Crx) 7.5-325 Mg Tablet PO 1 tab Q4H PRN Administration Pain Rated 7-10 Allopurinol 100 mg 02/17/23 09:00 02/19/23 08:43 Allopurinol 100 Mg Tablet PO 100 mg DAILY IRON Administration Alprazolam 0.25 mg 02/17/23 08:00 02/19/23 05:56 Alprazolam (*Crx) 0.25 Mg Tablet PO 0.25 mg TID PRN Administration Anxiety Aspirin 81 mg 02/17/23 09:00 02/19/23 08:43 Aspirin 81 Mg Enteric Tablet PO 81 mg DAILY IRON Administration Donepezil HCl 5 mg 02/17/23 09:00 02/19/23 08:44 Donepezil Hcl 5 Mg Tablet PO 5 mg DAILY IRON Administration Famotidine 20 mg 02/17/23 09:00 02/19/23 08:44 Famotidine 20 Mg Tablet PO 20 mg DAILY IRON Administration Finasteride 5 mg 02/17/23 09:00 02/19/23 08:44 Finasteride 5 Mg Tablet PO 5 mg DAILY IRON Administration Loratadine 10 mg 02/17/23 09:00 02/19/23 08:44 Loratadine 10 Mg Tablet PO 03/19/23 08:59 10 mg DAILY IRON Administration Losartan Potassium 25 mg 02/17/23 09:00 02/19/23 08:43 Losartan Potassium 25 Mg Tablet PO 25 mg DAILY IRON Administration Ondansetron HCl 4 mg 02/17/23 14:14 Ondansetron Inj 4 Mg/2 Ml Vial IV PUSH Q6H PRN Nausea And Vomiting Tamsulosin HCl 0.4 mg 02/17/23 09:00 02/19/23 08:44 Tamsulosin Hcl 0.4 Mg Capsule PO 0.4 mg DAILY IRON Administration Radiology Results: ITS Impressions Abdomen/Pelvis CT 02/17/23 05:34 Impression: Distended gallbladder with mild gallbladder wall thickening. Consider mild acute cholecystitis. Consider ultrasound and/or HIDA scan for further evaluation as indicated. Large left regarding containing a large portion of sigmoid colon and mesenteric fat. No bowel obstruction or bowel wall thickening. Labs Labs: Laboratory Results - last 24 hr 02/19/23 05:42 WBC 12.3 H RBC 4.21 L Hgb 13.3 L Hct 40.9 L MCV 97.1 MCH 31.6 MCHC 32.5 RDW
[2023-02-19 15:13] VITALS: BP 141/73; PULSE 108; RESP 21; TEMP 36.2; O2SAT 94
== END 2023-02-19 17:45 | disposition home or self-care (01) | DRG 419 ==
LOC: ANHED 02-17 04:24 → ANH3MEDSUR 02-17 05:35
PROVIDERS: Chiropractor; Preventive Medicine Aerospace Medicine; Surgery; Admitting Provider Internal Medicine; Emergency Provider Emergency Medicine; PCP Family Medicine; Visit Provider Hospitalist
PROC: 0FT44ZZ Resection of Gallbladder, Percutaneous Endoscopic Approach (ICD-10-PCS; CPT 47562; principal; 2023-02-17 17:00)
DX: K81.0 Acute cholecystitis (principal); I10 Essential (primary) hypertension; M10.9 Gout, unspecified; F41.9 Anxiety disorder, unspecified; F03.90 Unspecified dementia, unspecified severity, without behavioral disturbance, psychotic disturbance, mood disturbance, and anxiety; K40.90 Unilateral inguinal hernia, without obstruction or gangrene, not specified as recurrent; E66.9 Obesity, unspecified; Z68.30 Body mass index [BMI] 30.0-30.9, adult; Z87.891 Personal history of nicotine dependence
CPT/HCPCS: 36415; 74177; 80053; 81001; 82948; 83690; 84484; 85025; 86850; 86900; 86901; 88304; 93005; 96365; 96375; 99285; A9270; G0378; J1100; J1170; J2270; J2371; J2405; J2543; J2704; J3010; J7030; J7120; Q9967

== ENCOUNTER 2024-09-23 11:00 | Outpatient (RCR) | payer MEDICARE, SELFPAY ==
--- NOTE | 2024-07-01 11:59 | OPREHPOC ---
Outpatient Therapy Plan of Care This is a Multidisciplinary Plan of Care that may contain components documented by all disciplines (PT, OT, and ST.) PT Problem 1 PT Problem #1 Knowledge Deficit PT Goal 1 Goal / Goal Update *indep with HEP Target Visit 10 PT Problem 2 PT Problem #2 Pain PT Goal 1 Goal / Goal Update *pt report pain at worst rating in R hip 10 with increased activity Target Visit 10 PT Problem 3 PT Problem #3 Impaired Strength PT Goal 1 Goal / Goal Update * transfer sit/stand 5 reps with good control of motion Target Visit 10 PT Goal 2 Goal / Goal Update * side lying hip abduction R & L to 5' x 10 reps, to improve stability of hip with walking Target Visit 10 PT Problem 4 PT Problem #4 Impaired Functional Mobility PT Goal 1 Goal / Goal Update * 2 minute walking test distance, with rollator walker 375' Target Visit 10 PT Problem 5 PT Problem #5 Impaired Flexibility PT Goal 1 Goal / Goal Update *increase flexibility of R hamstring with supine SLR to 55'- to improve hip flexibility Target Visit 10
--- NOTE | 2024-07-01 11:59 | PTOPEVAL1 ---
Assessment and note entered by Karla Kellogg, PT Evaluation Information Assessment Status Evaluation ICD-10 Condition Codes (PT) Pain in right hip M25.551 Other ICD-10 Condition Codes ( M16.10 hip arthritis PT) Onset Apr 2024 Subjective Information chronic pain in R hip, started using wheeled walker in April due to more pain in hip; had pain in L hip also; dr gave him predisone pills and L hip better, but R still hurt had injection into R hip/bursa/ITB Jun 24 and it helped the pain; have referral for dr at [facility], Jul 12 for back pain; return to for another injection for hip; Activity: use wheeled walker all of the time in the house to help back pain and make it easier to walk; sometimes use 1 or 2 canes with short community distances and wheeled walker is too hard to get in/out car; live with in one story home without any steps; indep with bathing, dressing; does not assist him. He does not do any leg exercises. Reported Pain Level Pain Score Self Report Additional Pain Score Comments pain range of R hip in the past week 0-4/10; lateral and posterior hip also have pain in low back 5/10 at worst increase pain: lifting, lie on R side 20-30 minutes decrease pain: change positions, sitting, muscle cream, tylenol is not using heat or ice-- instruct on PRN use sleeping does not awaken due to hip pain Assessment PT Clinical Summary Hitesh has the diagnosis of R hip pain and OA. His medical history includes chronic back pain, chronic bilateral hip pain and lumbar laminectomy in 2008. He has a referral to a back dr in [facility] in few weeks. The injection into his R hip last week decreased his pain. He started using a wheeled walker due to more pain in his hip. Self assessment LE functional scale rating of 60% limitation in activity level. With the evaluation; he has poor standing position of trunk and hips with R hip elevated; ambulates with trunk flexion, lateral instability of hips; 2 minute walking test distance with rollator walker 340' with reports of increased bilateral hip pain; 5 reps sit/stand time of 16 seconds, without use of UE's and decreased control of transfer with last few reps. Tenderness over R lateral and posterior hip and ITB. Skilled PT services are indicated for modalities to decrease pain in R hip and ITB; strengthening of bilateral hips/LE's and education for HEP and posture. Monitor back pain during sessions. Plan of Care Interventions Electrical Stimulation,Hot Pack/Cold Pack,Manual Therapy,Neuro Re-education,Patient/Caregiver Education,Therapeutic Activities,Therapeutic Exercise,Ultrasound PT Services Indicated Yes Treatment Frequency and 2x/wk for 10 visits Duration These treatments will address the objective and functional deficits as defined above. The patient will be advanced safely and appropriately in order for the patient to progress towards his/her prior level of function. Additional exercises will be introduced and as well as a comprehensive home exercise program upon discharge, if needed, ?to ensure carryover of functional gains achieved in the clinic. This treatment plan has been reviewed and agreement upon by the patient.
--- NOTE | 2024-08-12 11:53 | OPREHPOC ---
Outpatient Therapy Plan of Care This is a Multidisciplinary Plan of Care that may contain components documented by all disciplines (PT, OT, and ST.) PT Problem 1 PT Problem #1 Knowledge Deficit PT Goal 1 Goal / Goal Update *indep with HEP 08-12-24 progress goal met continue towards to progress HEP and education Target Visit 16 PT Problem 2 PT Problem #2 Pain PT Goal 1 Goal / Goal Update *pt report pain at worst rating in R hip 3/10 with increased activity 08-12-24 progress goal not met, improved with 4/10 at worst continue towards goal Target Visit 16 PT Problem 3 PT Problem #3 Impaired Strength PT Goal 1 Goal / Goal Update * transfer sit/stand 5 reps with good control of motion 08-12-24 progress goal met NEW GOAL: sit/stand x 10 reps with good control, without UE use Target Visit 16 PT Goal 2 Goal / Goal Update * side lying hip abduction R & L to 5' x 10 reps, to improve stability of hip with walking 08-12-24 progress goal partially met, for L LE NEW goal: 1* R side lying hip abduction to 5' x 15 reps Target Visit 16 PT Problem 4 PT Problem #4 Impaired Functional Mobility PT Goal 1 Goal / Goal Update * 2 minute walking test distance, with rollator walker 375' 08-12-24 progress goal met NEW GOAL: * 2 minute walking test distance with cane of 325' Target Visit 16 PT Problem 5 PT Problem #5 Impaired Flexibility PT Goal 1 Goal / Goal Update *increase flexibility of R hamstring with supine SLR to 55'- to improve hip flexibility 08-12-24 progress goal met NEW GOAL: increase R hamstring SLR to 65' Target Visit 16
--- NOTE | 2024-08-12 11:54 | PTOPPROG ---
Assessment and note entered by Karla Kellogg, PT Assessment Status Progress ICD-10 Condition Codes (PT) Pain in right hip M25.551 Other ICD-10 Condition Codes ( M16.10 hip arthritis PT) Onset Apr 2024 Subjective Information doing better since coming for therapy- standing up better, walking faster and better; less pain in back; walk sometimes with the cane; for distances use the wheeled walker for safety; walking balance is much better, but still have to use some support at home with cabinets and furniture; have been doing the exercises at home. Assessment PT Clinical Summary Hitesh has received 10 PT sessions. Compared to the initial evaluation: pain rating of back and R hip, ITB from 0-5/10 to 0-4/10; with more pain at ITB than back; LE functional scale rating from 60 to 48% limitation in activity level ; increase strength of bilateral hip abduction to 4/5; good control of sit/stand transfer without use of UEs; 2 minute walking test distance, with wheeled walker, from 340' to 400'; Education for HEP and posture/body mechanics. The goals were partially met. Continue PT to further increase strength and decrease pain. Plan of Care Interventions Electrical Stimulation,Hot Pack/Cold Pack,Manual Therapy,Neuro Re-education,Patient/Caregiver Education,Therapeutic Activities,Therapeutic Exercise,Ultrasound PT Services Indicated Yes Treatment Frequency and 1x/wk for 6 visits Duration These treatments will address the objective and functional deficits as defined above. The patient will be advanced safely and appropriately in order for the patient to progress towards his/her prior level of function. Additional exercises will be introduced and as well as a comprehensive home exercise program upon discharge, if needed, ?to ensure carryover of functional gains achieved in the clinic. This treatment plan has been reviewed and agreement upon by the patient.
--- NOTE | 2024-08-17 08:26 | PCPTNOTE ---
Pt canceled due to illness.
--- NOTE | 2024-09-23 11:48 | PTOPDC ---
Assessment and note entered by Karla Kellogg, PT Assessment Status Discharge ICD-10 Condition Codes (PT) Pain in right hip M25.551 Other ICD-10 Condition Codes ( M16.10 hip arthritis PT) Onset Apr 2024 Subjective Information not feeling well, have had labored breathing for few days, saw dr yesterday; all the tests were negative, but got a script for antibiotic and started it yesterday; feel like improved and moving better; have the home exercises; use the cane or the walker to get around. see the dr and the orthopedic dr soon, may get another injection into hip. Reported Pain Level Pain Score Self Report Additional Pain Score Comments pain range of past week: of back and R hip 0-4/10 increase pain: lifting,walking decrease pain: sit, rest Assessment PT Clinical Summary Hitesh has received a total of 16 PT sessions. Compared to the last assessment: pain of R hip and back is the same at 0-4/10; self assessment with LE functional scale rating from 48% to 65% limitation in activity level; increase strength with sit/stand transfer to 10 reps with out use of UE and good control of motion and R hip abduction strength increase; hamstring length of R LE is same; 2 minute walking test distance from 400' with wheeled walker to 270' with cane. Education completed for HEP. The goals were partially met. Discharge PT services. He is to continue with the HEP and walking as tolerated. Plan of Care PT Services Indicated No
== END 2024-09-23 14:28 | disposition home or self-care (01) ==
LOC: ANHPT 11:00
PROVIDERS: PCP Family Medicine
DX: M25.561 Pain in right knee (principal); M16.10 Unilateral primary osteoarthritis, unspecified hip
CPT/HCPCS: 97014; 97110; 97116; 97140; 97162; 97530; G0283

== ENCOUNTER 2024-10-20 10:50 | Outpatient (RCR) | payer MEDICARE, SELFPAY ==
--- NOTE | 2024-10-20 12:02 | OPREHPOC ---
Outpatient Therapy Plan of Care This is a Multidisciplinary Plan of Care that may contain components documented by all disciplines (PT, OT, and ST.) PT Problem 1 PT Problem #1 Knowledge Deficit PT Goal 1 Goal / Goal Update *independent with HEP Target Visit 8 PT Problem 2 PT Problem #2 Pain PT Goal 1 Goal / Goal Update 1* pain rating of 2/10 at worst 2* pt report able to walk 1/4 mile without pain increase Target Visit 8 PT Problem 3 PT Problem #3 Impaired Flexibility PT Goal 1 Goal / Goal Update * hamstring length of R with supine SLR of 60' Target Visit 8 PT Problem 4 PT Problem #4 Impaired Strength PT Goal 1 Goal / Goal Update *increase strength of R hip abduction and extension to 4/5, to improve stability to hip Target Visit 8
--- NOTE | 2024-10-20 12:02 | PTOPEVAL1 ---
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; bursitis R hip M70.61; OA R PT) hip M16.11 Onset 1 month ago Subjective Information when had my check up with in September- talked about hip pain and got injection-- helped some with the pain; have had recent PT- discharged about 1 month ago; activity: use cane for short distances and wheeled walker for distances; independent with home tasks and self care independent, does grocery shopping; problems with putting on shoes and carrying groceries- can do Reported Pain Level Pain Score 1: Self Report Additional Pain Score Comments pain range in the past week: 1-3/10 lateral R hip and thigh increase pain; lie on R side, lifting, walking decrease pain: sit, rest, tylenol walking tolerance 1/4 mile outside with wheeled walker, have to rest report sleeping- take meds for sleeping, hip not normally wake him up history of chronic back pain Assessment PT Clinical Summary 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 He has had PT recently here and is continuing to do some of the exercises. He had an injection into his hip and it has eased the pain some. Self assessment with LE functional scale rating of 71% limitation in activity. He uses the wheeled walker to decrease pain. Medical history includes: chronic back pain and R hip pain. With the evaluation: weakness of R hip abduction and extension; tightness of hamstrings bilateral & R ITB, poor standing position and 2 minute walking test distance with wheeled walker of 375'. Skilled PT services are indicated for modalities to decrease pain and tightness over ITB and lumbar ; therapeutic exercises to increase hip strength and education for HEP. Plan of Care Interventions Electrical Stimulation,Hot Pack/Cold Pack,Manual Therapy,Neuro Re-education,Patient/Caregiver Education,Therapeutic Activities,Therapeutic Exercise,Ultrasound,Other Other Interventions taping PT Services Indicated Yes Treatment Frequency and 1-2x/wk for 8 visits Duration These treatments will address the objective and functional deficits as defined above. The patient will be advanced safely and appropriately in order for the patient to progress towards his/her prior level of function. Additional exercises will be introduced and as well as a comprehensive home exercise program upon discharge, if needed, ?to ensure carryover of functional gains achieved in the clinic. This treatment plan has been reviewed and agreement upon by the patient.
--- NOTE | 2024-11-04 12:03 | PCPTNOTE ---
Pt cancelled appt today due to hospitalization.
--- NOTE | 2024-11-10 09:35 | OPREHPOC ---
Outpatient Therapy Plan of Care This is a Multidisciplinary Plan of Care that may contain components documented by all disciplines (PT, OT, and ST.) PT Problem 1 PT Problem #1 Knowledge Deficit PT Goal 1 Goal / Goal Update *independent with HEP 25 d/c goals not addressed Target Visit 8 PT Problem 2 PT Problem #2 Pain PT Goal 1 Goal / Goal Update 1* pain rating of 2/10 at worst 2* pt report able to walk 1/4 mile without pain increase -25 d/c goals not addressed Target Visit 8 PT Problem 3 PT Problem #3 Impaired Flexibility PT Goal 1 Goal / Goal Update * hamstring length of R with supine SLR of 60' -25 d/c goals not addressed Target Visit 8 PT Problem 4 PT Problem #4 Impaired Strength PT Goal 1 Goal / Goal Update *increase strength of R hip abduction and extension to 4/5, to improve stability to hip 25 d/c goals not addressed Target Visit 8
--- NOTE | 2024-11-10 09:35 | PTOPDC ---
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 Assessment PT Clinical Summary Bill received the PT evaluation on October 20, then called on November 08 and canceled PT due to hospitalization. Discharge PT. The goals were not addressed. Plan of Care PT Services Indicated No
== END 2024-11-10 11:59 | disposition home or self-care (01) ==
LOC: ANHPT 10:50
PROVIDERS: PCP Family Medicine
DX: M76.31 Iliotibial band syndrome, right leg (principal); M70.61 Trochanteric bursitis, right hip; M16.11 Unilateral primary osteoarthritis, right hip; M25.551 Pain in right hip
CPT/HCPCS: 97110; 97161; 97530

== ENCOUNTER 2025-02-15 04:15 | Emergency (ER) | payer MEDICARE, SELFPAY ==
--- OUTSIDE RECORDS SUMMARY | 2006-05-05 19:00 | XMS_ITS | Continuity of Care Document ---
Author Organization [facility] Address [address] [place] [address] [place] [address] Phone Care Team Providers Care Manager Animal Name Role Phone [facility] Unavailable Unavail able Todd, Carrie Unavailable Unavailable Advance Directives Directive Yes / No Effective Date File Name No Information Encounters Encounter Description Practice Location Reason(s) For Visit Diagnoses Date Provider Providers Copied on Encounter [facility], [address], [place], [place], [id number], [place] tel:[phone] [facility] No Information [address] [facility] [address] [facility], [address], [place], [place], [id number] , [place]. tel:[phone] Consulting Provider: Carrie Brooks, [address] [place] [address], [id number]. tel:[phone] Family History Family Member Type Diagnosis Age At Onset No Information Payers Payer name Insurance type Covered democrat ID Authoriza tion(s) No Information Social History Type Description Quantity Date Captured Comments Sex Male Smoking Status No Information Chief Complaint And Reason For Visit No Information Reason For Referral Reason For Referral No Information History Of Present Illness Encounter Date Complaint History Of Prese nt Illness No Information Functional Status Date Functional Assessmen t No Information Instructions Date Instruction Additional Infor mation No Information Assessments Type Assessment Date No Information Patient Care Teams Name Effective Dates (start - stop) Status Members No Information
[2025-02-15] VITALS (9 sets, daily range): BP systolic 108–131; BP diastolic 60–71; PULSE 56–60; RESP 12–14; TEMP 36.4; O2SAT 95–100
--- NOTE | ~2025-02-15 | XR_ITS ---
EXAMINATION: XR hip RT 2V w AP pelvis, 02/15/2025 5:30 CDT HISTORY: R hip pain COMPARISON: No comparisons available. Findings: No acute fracture or malalignment. Moderate degenerative changes Soft tissues unremarkable. Impression: No acute fracture or malalignment. Reviewed, dictated and finalized at location A. Impression: No acute fracture or malalignment.
--- OUTSIDE RECORDS SUMMARY | 2025-02-15 04:17 | XMS_ITS ---
Author Organization [facility] Address [address] [place] [address] Care Team Providers Care Six Sigma Black Belt Engineer Name Role Phone Naveen Rea MD Unavailable Laila Saucedo PT Unavailable Unavaila Hira Castano MD Primary Care Provider [phone] Active Problems Problem Noted Date Diagnosed Date Acute chest pain 01/06/2025 Assessment & Plan (01/14/2025 10:25 AM CDT): Still having off and on episodes. Will get cardiac cath on 02/01/2025. Will continue to monitor and follow with Cardiology. Abnormal stress test 01/04/2025 Shortness of breath 01/04/2025 Acute saddle pulmonary embolism without acute co r pulmonale 11/03/2024 Assessment & Plan (01/14/2025 10:25 AM CDT): Continues on Eliquis. Continues to follow with Cardiology. Advised to continue to avoid NSAIDs. Continues on ASA. Assessment & Plan (12/03/2024 8:57 AM CDT): Will get updated labs and continue on Eliquis. Will be seeing Floor Tech on 12/14/2024. Orders: Comprehensive metabolic panel; Future CBC with auto differential; Future Assessment & Plan (11/10/2024 11:58 AM CDT): Continues on Eliquis. Will continue to hold ASA. Will continue to follow with Cardiology. Appointment 12/14/2024. Discussed red flags and when to seek emergent care. Will check CBC and CMP in 1 week to ensure numbers are staying stable. Orders: CBC with auto differential; Future Comprehensive metabolic panel; Future Heartburn 11/03/2024 Left buttock pain 04/27/2024 NINAR (noninfectious nonallergic rhinitis) 04/27 Acute cholecystitis without calculus 07/24/2023 Anxiety 07/24/2023 Assessment & Plan (01/14/2025 10:25 AM CDT): See above. Chest pain may be linked in some manor to anxiety as well. Orders: ALPRAZolam (XANAX) 0.25 mg tablet; Take 1 tablet by mouth three times a day as needed for anxiety Assessment & Plan (12/03/2024 8:57 AM CDT): Continues to use Xanax especially to help with sleeping at night. Gout 07/24/2023 Left inguinal hernia 07/24/2023 Mild dementia without behavi oral disturbance, psychotic disturbance, mood disturbance, or anxiety, unspecified dementia type 2023 Assessment & Plan (08/03/2024 8:58 AM SOFT SHOE DANCER): Stable on dual agent therpay with memantine and donepezil. Chronic heart failure with preserved ejection fr action 2023 Assessment & Plan (09/22/2024 2:51 PM CDT): Chest x-ray and BNP today. Will plan accordingly once results are received. Red flags reviewed as well. Continue following with cardiology. Assessment & Plan (08/03/2024 8:58 AM SOFT SHOE DANCER): Stsabl abhishek lsoartan. NO s/s of fluid overlaod. Trigger finger, left ring finger 01/14/2023 Assessment & Plan (12/03/2024 8:57 AM CDT): Will be seeing Ortho soon for issues. Will continue to monitor. Ventricular bigeminy 08/01/2022 Bradycardia 05/14/2022 RBBB 05/14/2022 Frequent PVCs 05/14/2022 Benign prostatic hyperplasia with post-void drib cristiano 10/30/2021 Assessment & Plan (12/03/2024 8:57 AM CDT): Having increased voiding but no signs of infection. Will continue on Finasteride. Will continue to monitor. Assessment & Plan (08/03/2024 8:58 AM SOFT SHOE DANCER): COntinue on f/u with urology. Tripel therapy with tamsulosin, finsasteride and myrbetriq for OAB. Seeing them this afternoon. Weak urine stream 10/30/2021 Lower urinary tract symptoms (LUTS) 10/30/2021 Right hip pain 07/20/2021 DDD (degenerative disc disease), lumbar 05/23/20 21 Lumbar post-laminectomy syndrome 05/23/2021 Degenerative lumbar spinal stenosis 05/23/2021 Lumbar radiculopathy 05/23/2021 Chronic right-sided low back pain with right-anya ed sciatica 05/23/2021 Assessment & Plan (01/14/2025 10:25 AM CDT): Having increased pain. Continues to get PT and see ortho. Will continue to monitor. Assessment & Plan (08/03/2024 8:57 AM SOFT SHOE DANCER): Continue f/ with orthopedics and specialty care. Continue PT as it is proving very beneficial for patient. Stage 3b chronic kidney disease 08/31/2020 Overview (08/31/2020): Creatinine 1.6 will repeat Assessment & Plan (12/03/2024 8:57 AM CDT): Will get updated labs. Will continue to monitor. Will continue to avoid NSAIDs and ensuring proper hydration. Orders: Comprehensive metabolic panel; Future CBC with auto differential; Future Assessment & Plan (08/03/2024 8:59 AM SOFT SHOE DANCER): REviqwed bp control and avoidance of nephrotoxic agents. Greater trochanteric bursitis of right hip 07/10 It band syndrome, right 07/10/2020 Other amyloidosis 06/19/2020 Assessment & Plan (08/03/2024 8:58 AM SOFT SHOE DANCER): No evdience fo cardiac involvement. Assessment & Plan (08/31/2020 11:25 AM CDT): Low probabity of amyloid. Will get technitium scan and if negative will take off diagnoses. BMI 33.0-33.9,adult 02/09/2019 Assessment & Plan (01/14/2025 10:25 AM CDT): Weight appropriate for patient. Assessment & Plan (12/03/2024 8:57 AM CDT): Weight appropriate for patient. Assessment & Plan (11/25/2024 10:33 AM CDT): Assessment & Plan (11/10/2024 11:58 AM CDT): Weight appropriate for patient. Assessment & Plan (02/09/2019 10:32 AM CDT): Reviewed need to lose weight, reviewed health benefits. Reviewed recommendations for daily intake & activity 20-30 minutes/day. Discussed healthy diet and importance of regular physical activity. Monoclonal gammopathy of unknown significance (M CLARA) 02/09/2019 Assessment & Plan (08/03/2024 8:57 AM SOFT SHOE DANCER): Continue f/u with BMT. NO bleeding, bruising or other abnormaltiy identified. Assessment & Plan (08/31/2020 11:26 AM CDT): Followed by Dr. KILLIAN. Will check the tech scan. Will check with CONSTANTIN to see if he wants additional serum electrophoresis. Laryngopharyngeal reflux (LPR) 10/30/2018 Assessment & Plan (01/14/2025 10:25 AM CDT): Switched to Protonix at last hospital stay. Will refill and monitor. Reports improvement since switching. Orders: pantoprazole DR (PROTONIX) 40 mg EC tablet; Take 1 tablet (40 mg total) by mouth 2 (two) times a day Assessment & Plan (05/21/2019 1:37 PM SOFT SHOE DANCER): Continue Protonix and Pepcid Follow up as needed Gag reflex will always be present Protonix works best 30 minutes before a meal If symptoms become worse, then GI referral recommended Assessment & Plan (03/23/2019 11:31 AM CDT): Continue Protonix in the AM and then take Pepcid 20 mg at bedtime Nutritional shakes three times daily LPR discussed and Handout provided TMJ dysfunction also discussed and Handout provided Assessment & Plan (02/01/2019 9:14 AM CDT): Continue Zantac twice daily Assessment & Plan (10/30/2018 1:43 PM CDT): Start Zantac 150 mg at bedtime Continue the probiotics for two weeks LPR discussed and Handout provided Purulent postnasal drainage 10/30/2018 Allergic rhinitis 10/30/2018 Assessment & Plan (01/14/2025 10:25 AM CDT): Having increased drainage since starting Eliquis. Will refill Atrovent nasal spray and monitor. Orders: ipratropium (ATROVENT) 42 mcg (0.06 %) nasal spray; Administer 2 sprays into each nostril 4 (four) times a day Assessment & Plan (09/22/2024 2:51 PM CDT): Allergies to grass, runny nose, nasal discharge. Taking Erika daily. Assessment & Plan (02/09/2019 10:32 AM CDT): To continue hukx-kwc-dyqbhrp antihistamine (Erika & singulair) & dvco-big-uzkisbk steroid nasal spray. Tqvy-xzp-ivusxok allergy eye drops are available also. Discussed keeping windows of house/car closed & changing filter in house/car cabin during allergy season. To shower when coming in from being outdoors for extended period to wash off pollen/allergens. Can continue mucinex per box directions. Instructed to increase fluid intake & warm salt water gargles for throat pain. Has f/u appt w/Dr Pulliam 02/18/19. Can discuss if no improvement by then. To call if worsening. 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 Definitely not worse or progressive. This is consistent with a diagnosis of no amyloid and reinforces my impression that no further testing be needed at this time. ORR (dyspnea on exertion) 08/21/2018 Assessment & Plan (12/03/2024 8:57 AM CDT): Still having SOB with walking. Will continue to monitor. Will continue to see Cardiology. Assessment & Plan (09/22/2024 2:50 PM CDT): Acute dyspnea on exertion, worsening. Differential includes heart failure, pneumonia. Negative COVID-19. EKG with no acute changes. -Initiate antibiotic to cover for lower respiratory infection. - Order chest X-ray. - Order blood work. Assessment & Plan (09/21/2020 3:43 PM CDT): Somewhat improved. Would like to more definitively rule out amyloid with a technetium scan. Although this is best for TTR amyloid, with a major infiltration with AL will also be positive. But sensitivity may be less. ADDED 09/21/2020 The technitium scan was negative, ruling out amyloid. Assessment & Plan (08/26/2019 10:27 AM CDT): Improved. Normal exam Assessment & Plan (08/21/2018 1:47 PM CDT): Increasing dyspnea on exertion. Cannot rule out coronary disease although he has no clear anginal symptoms. His pulmonary functions from 2012 showed relatively severe COPD with diffusing capacity issues. His echocardiogram was inadequate to evaluate for amyloid and also difficult to evaluate for diastolic dysfunction. At this point would like to repeat the pulmonary functions and see if this explains his problem. If it does not may have to repeat the echocardiogram with strain measurements and Doppler studies to evaluate diastolic dysfunction more carefully. It is possible his age that he does have amyloid however unless this is AL amyloid there is no treatment and his echocardiogram can make the diagnosis and also other testing will need to be done. Prediabetes 12/09/2017 Essential hypertension 12/08/2017 Assessment & Plan (01/14/2025 10:25 AM CDT): Continues to hold Losartan unless elevated above 140/90. Continues on Procardia and Metoprolol. Assessment & Plan (12/03/2024 8:57 AM CDT): Stable and well controlled. Has improved with increasing Losartan to 50 mg. Will continue to monitor. Assessment & Plan (11/10/2024 11:58 AM CDT): Blood pressure higher than normal. Will increase Losartan to 50 mg and monitor. Advised to call if symptoms develop or blood pressure readings are below 120/60s. Orders: losartan (COZAAR) 50 mg tablet; Take 1 tablet (50 mg total) by mouth daily Assessment & Plan (09/22/2024 11:42 AM CDT): Stable on losartan. Will continue. Assessment & Plan (08/31/2020 11:24 AM CDT): Continues on losartan 25. Need to be sure renal function is OK, if not will switch to alternative therapy. Assessment & Plan (08/26/2019 10:28 AM CDT): Pressures are a bit high today. In view of his long history, I would like to reinstitute losartan but at a dose of 25mg daily. Assessment & Plan (08/21/2018 1:54 PM CDT): Pressure is well controlled on his present regimen. He was in able to tolerate 100 mg of losartan. Will continue present regimen Systolic murmur 08/03/2015 Insomnia secondary to chronic pain 07/30/2014 Assessment & Plan (01/14/2025 10:25 AM CDT): Getting better since getting out of hospital. Will send in refill to be filled on 01/20/2025. Will continue to monitor. Sleeping is better than 1st two days out of hospital. Will continue to monitor. Hydronephrosis 08/18/2012 Enlarged prostate 03/06/2007 Elevated prostate specific antigen (PSA) 007 Localized cancer of skin of ear Current Treatment and Therapy Plans No current plan information found. Past Treatment and Therapy Plans No past plan information found. Lifetime Dose Tracking * Chemical Lifetime Dose Automatic Entry Manual Entr y Fluoro Time 3.93 minutes 1.33 minutes 2.6 minutes Air kerma at the reference point (Ka,r) 40.02 mGy 4 0.02 mGy 0 mGy Resolved Problems Problem Noted Date Diagnosed Date Resolved Date Trigger ring finger of right hand 01/07/2023 01/14/2023 Sacroiliitis 05/23/2021 2023 Severe obesity (BMI 35.0-35. 9 with comorbidity) 06/18/2019 12/03/2019 Abrasion of face 02/01/2019 11/25/2024 Assessment & Plan (02/01/2019 9:15 AM CDT): Aquaphor ointment to right side of face and left cheek 6 times daily for at least the next ten days If left cheek lesion does not heal up, would recommend biopsy Other amyloidosis 01/11/2019 06/18/2019 Pulmonary emphysema 10/13/2018 04/16/20 19 Hyperlipidemia 08/23/2016 08/21/2018
--- OUTSIDE RECORDS SUMMARY | 2025-02-15 04:17 | XMS_ITS | Encounter Summary ---
Author Organization [facility] Address [address] [place] [address] Phone Care Team Providers Care Telephone Maintainer Name Role Phone Hira Pulliam MD Primary Care Provider [phone] Naveen Rea MD Unavailable Laila Saucedo PT Unavailable Unavaila Maykel Styles MD Primary Care Provider + Hira Pulliam MD Primary Care Provider [phone] China Lombardo RN Unavailable Liliya Higgins RN Unavailable [phone] Encounter Details Date Type Department Care Team (Late st Contact Info) Description 12/30/2019 Telephone [facility] 7th Floor, [place] [address] Roland De Social History Tobacco Use Types Packs/Day Years Used Date Smoking Tobacco: Former Cigarettes 1.5 6 1 947 - 1953 Smokeless Tobacco: Never Comments:Smoking History Pac ks/day: 1 Packs Alcohol Use Standard Drinks/Week Comments Yes 0 (1 standard drink = 0.6 oz pur e alcohol) occasionally PHQ-2 Answer Date Recorded PHQ-2 Score 0 01/27/2019 Sex and Gender Information Value Date Recorded Sex Assigned at Not on file Legal Sex 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 Gender Identity Not on file Sexual Orientation Not on file documented as of this encounter Plan of Treatment Not on file documented as of this encounter Visit Diagnoses Not on filedocumented in this encounter Additional Health Concerns Infection Onset Date Last Indicated Resolved Time COVID: Suspected 09/22/2024 09/22/2024 09/22/2024 11:44 AM CDT documented as of this encounter Care Teams Telephone Maintainer Relationship Specialty Start Date End Date Hira Pulliam MD [address] [place] [address] PCP - General Family Medicine 12/23/18 03/03/23 Maykel Conley MD PCP - General Cardiology 03/04/23 03/06/23 Hira Pulliam MD [address] [place] [address] PCP - General Family Medicine 03/07/23 Naveen Rea MD [address] [place] [address] Medical Oncologist/Dedicated Truck Driver Medical Oncology 01/26/19 Laila Saucedo, PT Physical Therapist Physical Therapy 12/26/21 China Lombardo, BRAEDEN [address] [place] [address] [address] [place] [address] Bindery Worker 11/08/24 12/07/24 Liliya Higgins RN [address] [place] [address] [address] [place] [address] Bindery Worker 01/10/25 02/09/25 documented as of this encounter
--- OUTSIDE RECORDS SUMMARY | 2025-02-15 04:17 | XMS_ITS | Clinical Summary ---
Author Organization [facility] Address [address] [place] [address] Care Team Providers Care Casino Change Attendant Name Role Phone Naveen Rea MD Unavailable Laila Saucedo PT Unavailable Unavaila Hira Castano MD Primary Care Provider [phone] Allergies Active Allergy Reactions Criticality Noted Date Comments Zolpidem Other (See comments) Low 03/25/2017 Made angry Amlodipine Amoxicillin Diarrhea,Vomiting Low 03/02/2019 Enalapril Other (See comments) Medium Reaction: cough sinusitis, Enalaprilat Other (See comments) Medium Reaction: cough sinusitis, Latex Rash Medium 12/19/2016 Verapamil Other (See comments) Low 03/25/2017 Pt reported Medications multivitamin-min erals-lutein tablet Take by mouth. Activ e acetaminophen (TYLENOL) 500 mg tablet Take 1 tablet (500 mg total) by mouth every 6 (six) hours as needed for pain Active Myrbetriq 50 mg tablet extended release 24 hr TAKE 1 TABLET BY MOUTH EVERY DAY 90 tablet 3 4 Active finasteride (PROSCAR) 5 mg tabletIndication s:Benign prostatic hyperplasia with post-void dribbling Take 1 tablet (5 mg total) by mouth daily 90 tablet 3 5 026 Active donepeziL (ARICEPT) 5 mg tablet TAKE 1 TABLET BY MOUTH EVERY DAY AT NIGHT 100 tablet 1 5 Active tamsulosin (FLOMAX) 0.4 mg extended release capsule TAKE 1 CAPSULE BY MOUTH EVERY DAY 90 capsule 3 5 Active losartan (COZAAR) 50 mg tabletIndication s:Essential hypertension Take 1 tablet (50 mg total) by mouth daily 90 tablet 3 5 026 Active apixaban (ELIQUIS) 5 mg tabletIndication s:Acute saddle pulmonary embolism without acute cor pulmonale (HCC) Take 1 tablet (5 mg total) by mouth 2 (two) times a day 180 tablet 3 5 026 Active memantine (NAMENDA) 10 mg tablet TAKE 1 TABLET BY MOUTH TWICE A DAY 180 tablet 3 5 Active allopurinoL (ZYLOPRIM) 100 mg tablet TAKE 1 TABLET BY MOUTH EVERY DAY 90 tablet 1 5 Active aspirin 81 mg chewable tablet Take 1 tablet (81 mg total) by mouth daily 30 tablet [address] (PROTONIX) 40 mg EC tabletIndication s:Mucositis Prophylaxis Take 1 tablet (40 mg total) by mouth 2 (two) times a day 180 tablet 3 5 026 Active ALPRAZolam (XANAX) 0.25 mg tabletIndication s:Generalized Anxiety Disorder,anxiety Take 1 tablet by mouth three times a day as needed for anxiety 90 tablet 5 Active ipratropium (ATROVENT) 42 mcg (0.06 %) nasal sprayIndications :Seasonal allergic rhinitis due to pollen Administer 2 sprays into each nostril 4 (four) times a day 15 mL 1 5 Active NIFEdipine (PROCARDIA XL/ADALAT CC) 30 mg 24 hr tablet Take 1 tablet (30 mg total) by mouth daily 90 tablet 3 5 026 Active metoprolol XL (TOPROL-XL) 50 mg extended release tablet Take 1 tablet (50 mg total) by mouth daily 90 tablet 3 5 026 Active atorvastatin (LIPITOR) 20 mg tablet Take 1 tablet (20 mg total) by mouth daily 30 tablet 2 5 025 Active metoprolol XL (TOPROL-XL) 50 mg extended release tablet Take 1 tablet (50 mg total) by mouth daily 30 tablet 5 025 Discontin ued(Reord er) NIFEdipine (PROCARDIA XL/ADALAT CC) 30 mg 24 hr tablet Take 1 tablet (30 mg total) by mouth daily 30 tablet 5 025 Discontin ued(Reord er) Active Problems Problem Noted Date Diagnosed Date [...] and continue on Eliquis. Will be seeing Nuclear Medicine Physician on 12/14/2024. Orders: Comprehensive metabolic panel; Future [...] 2023 Assessment & Plan (08/03/2024 8:58 AM CHAR CONVEYOR TENDER): Stable on dual agent therpay with memantine and donepezil. Chronic heart failure with preserved ejection fr action 2023 Assessment & Plan (09/22/2024 2:51 PM CDT): Chest x-ray and BNP today. Will plan accordingly once results are received. Red flags reviewed as well. Continue following with cardiology. Assessment & Plan (08/03/2024 8:58 AM CHAR CONVEYOR TENDER): Stsabl abhishek lsoartan. NO s/s of fluid [...] monitor. Assessment & Plan (08/03/2024 8:58 AM CHAR CONVEYOR TENDER): COntinue on f/u with urology. Tripel therapy with tamsulosin, finsasteride and myrbetriq for OAB. Seeing them this afternoon. Weak urine stream 10/30/2021 Lower urinary tract symptoms (LUTS) 10/30/2021 Right hip pain 07/20/2021 DDD (degenerative disc disease), lumbar 05/23/20 Lumbar post-laminectomy syndrome 05/23/2021 Degenerative lumbar spinal stenosis 05/23/2021 Lumbar radiculopathy 05/23/2021 Chronic right-sided low back pain with right-anya ed sciatica 05/23/2021 Assessment & Plan (01/14/2025 10:25 AM CDT): Having increased pain. Continues to get PT and see ortho. Will continue to monitor. Assessment & Plan (08/03/2024 8:57 AM CHAR CONVEYOR TENDER): Continue f/ with orthopedics and specialty care. [...] Future Assessment & Plan (08/03/2024 8:59 AM CHAR CONVEYOR TENDER): REviqwed bp control and avoidance of nephrotoxic agents. Greater trochanteric bursitis of right hip 07/10 It band syndrome, right 07/10/2020 Other amyloidosis 06/19/2020 Assessment & Plan (08/03/2024 8:58 AM CHAR CONVEYOR TENDER): No evdience fo cardiac involvement. Assessment & [...] 02/09/2019 Assessment & Plan (08/03/2024 8:57 AM CHAR CONVEYOR TENDER): Continue f/u with BMT. NO bleeding, bruising [...] day Assessment & Plan (05/21/2019 1:37 PM CHAR CONVEYOR TENDER): Continue Protonix and Pepcid Follow up as [...] Plan (02/09/2019 10:32 AM CDT): To continue iosy-kar-vplsmtd antihistamine (Erika & singulair) & czfj-fwu-kutdtwz steroid nasal spray. Xdey-imr-bekyskb allergy eye drops are available also. Discussed [...] 007 Localized cancer of skin of ear Resolved Problems Problem Noted Date Diagnosed Date [...] emphysema 10/13/2018 04/16/20 19 Hyperlipidemia 08/23/2016 08/21/2018 Encounters Date Type Department Care Team Description 02/03/2025 VON IP Outreach [facility] Accountable Care Organization [address] [place] [id number] Akilah Mcgrath MA 02/01/2025 8:30 AM CDT - 02/01/2025 9:35 AM CDT Surgery [facility] Cardiac Catheterization [address] [place] [id number] Missy Jhaveri MD LEFT HEART CATHETERIZATION WITH CORONARY ANGIOGRAPHY AND WITH OR WITHOUT LEFT VENTRICULOGRAM [id number] 02/01/2025 7:15 AM CDT Lab [address] [address] Abnormal stress test; Anticoagulation adequate with anticoagulant therapy 02/01/2025 7:13 AM CDT - 02/01/2025 1:30 PM CDT Hospital Encounter [facility] Cardiac Catheterization [address] [place] [address] Missy Jhaveri MD Abnormal stress test; Shortness of breath Discharge Disposition: Discharge to home or self care 01/31/2025 Orders Only [facility] Cardiac Catheterization [address] [place] [address] Missy Jhaveri MD Abnormal stress test (Primary Dx); Anticoagulation adequate with anticoagulant therapy 01/27/2025 Orders Only [facility] [address] [facility] [address] [place] [phone] Ananda Hendricks MD Monoclonal gammopathy of unknown significance (MGUS) (Primary Dx) 01/25/2025 10:55 AM CDT Lab [address] [address] Abnormal stress test; Shortness of breath 01/14/2025 10:00 AM CDT Office Visit [facility] [address] [phone] Valentina Iniguez NP Hospital discharge follow-up (Primary Dx); Acute chest pain; Acute saddle pulmonary embolism without acute cor pulmonale (HCC); Essential hypertension; Insomnia secondary to chronic pain; KAMERON (generalized anxiety disorder); Laryngopharyngeal reflux (LPR); Seasonal allergic rhinitis due to pollen; Chronic right-sided low back pain with right-sided sciatica; BMI 34.0-34.9,adult 01/13/2025 [facility] Post Discharge Follow up phone call [facility] Surgery Care [address] [place] [address] Tesha Londono 01/11/2025 Nurse Triage [facility] [address] [phone] Hira Pulliam MD 01/10/2025 Telephone [facility] [address] [phone] Hira Pulliam MD Case Management- Primary Care 01/10/2025 Telephone [facility] [place] [address] [place] [phone] Hira Pulliam MD VON Questions 01/06/2025 9:11 AM CDT - 01/07/2025 1:19 PM CDT Hospital Encounter [facility] IMU [address] [place] [address] Loyda Henriquez MD Bezuneh, Abraham Deneke, MD Acute chest pain (Primary Dx) Discharge Disposition: Discharge to home or self care 01/04/2025 Telephone [facility] at [address] [place] [phone] Nallely Ferrera MA 12/31/2024 Results Follow-Up [facility] at [address] [place] [address] Nallely Ferrera MA [place] MPI SPECT (Rest and/or Stress) Multiple Studies 12/30/2024 1:45 PM CDT Office Visit [facility] Medicine [address] [facility] [address] [place] [address] Zachary Klein MD Trochanteric bursitis, right hip (Primary Dx) 12/29/2024 7:05 AM CDT - 12/29/2024 11:59 PM CDT Hospital Encounter [facility] [address] [place] [address] Discharge Disposition: Discharge to home or self care 12/29/2024 7:04 AM CDT - 12/29/2024 11:59 PM CDT Hospital Encounter [facility] Cardiology [address] [place] [address] Chronic diastolic heart failure (HCC) Discharge Disposition: Discharge to home or self care 12/29/2024 7:04 AM CDT - 12/29/2024 11:59 PM CDT Hospital Encounter [facility] [address] [place] [address] Discharge Disposition: Discharge to home or self care 12/29/2024 7:04 AM CDT - 12/29/2024 11:59 PM CDT Hospital Encounter [facility] [address] [place] [address] Chronic diastolic heart failure (HCC) Discharge Disposition: Discharge to home or self care 12/14/2024 1:30 PM CDT Office Visit [place] [facility] [address] [facility] [address] [place] [phone] Missy Jhaveri MD RBBB (Primary Dx); Hypertension, essential; Chronic heart failure, unspecified heart failure type (HCC); Frequent PVCs; Ventricular bigeminy; Chronic diastolic heart failure (HCC); Acute saddle pulmonary embolism without acute cor pulmonale (HCC); On continuous oral anticoagulation 12/03/2024 9:00 AM CDT Lab [facility] Laboratory [address] [place] [phone] Acute saddle pulmonary embolism without acute cor pulmonale (HCC); Stage 3b chronic kidney disease (HCC) 12/03/2024 8:30 AM CDT Office Visit [facility] [address] [phone] Valentina Iniguez NP Acute saddle pulmonary embolism without acute cor pulmonale (HCC) (Primary Dx); ORR (dyspnea on exertion); Essential hypertension; Trigger finger, left ring finger; Anxiety; Benign prostatic hyperplasia with post-void dribbling; Stage 3b chronic kidney disease (HCC); BMI 34.0-34.9,adult 12/03/2024 Results Follow-Up [facility] [address] [phone] Valentina Iniguez NP CBC with auto differential, Comprehensive metabolic panel, Differential, auto, eGFR 11/25/2024 10:00 AM CDT Office Visit [facility] Primary Care at [address] [phone] Yarely Mandel NP BMI 34.0-34.9,adult (Primary Dx); Acute saddle pulmonary embolism without acute cor pulmonale (HCC); Essential hypertension; Anxiety 11/23/2024 Telephone [facility] [address] [phone] Hira Pulliam MD Med Refill 11/18/2024 Results Follow-Up [facility] [address] [phone] Valentina Iniguez NP CBC with auto differential, Comprehensive metabolic panel, Lipid panel, Additional followed-up results: 2 11/17/2024 11:15 AM CDT Clinical Support [facility] Primary Care at [address] [phone] 11/17/2024 10:52 AM CDT - 11/17/2024 11:59 PM CDT Hospital Encounter [address] [address] Acute saddle pulmonary embolism without acute cor pulmonale (HCC); Encounter for screening for lipid disorder Discharge Disposition: Discharge to home or self care 11/17/2024 10:[address] [facility] Out[facility] Lab at [address] [phone] 11/15/2024 1:00 PM CDT Office Visit [facility] Primary Care at [address] [phone] Yarely Mandel NP Acute saddle pulmonary embolism without acute cor pulmonale (HCC) (Primary Dx); Anxiety; Essential hypertension 11/15/2024 Nurse Triage [facility] [address] [phone] Hira Pulliam MD from Last 3 Months Immunizations Immunization Administration Dates Next Due COVID-19 mRNA ([employer] 0.3 m L (30 mcg) vaccine (12 years and up) 02/28/2023 Influenza Virus Vaccine Trivalent Mdv 03/20/2024 Influenza, Quadrivalent, Hig h Dose, Preservative Free, Intrr 03/13/2023,03/22/2021,03/23/2020 Influenza, Quadrivalent, Spl it, Preservative Free, Intramuscular 03/12/2019,05/12/2018,03/25/2017,04/02 Influenza, Split 04/05/2010 Influenza, Trivalent, High D ose, Split, Preservative Free, Intramuscular 03/13/2015 Influenza, Trivalent, IM (MDV) 5,04/04/2014,04/19/2013,03/30,03/25/2011 Influenza, Unspecified 01/27/2024(Deferr ed: Patient Refused),03/30/2022,03/06/2021, 020 Pfizer SARS-CoV-2 Monovalent Vaccination (12+ Yrs) HINSON-READY TO USE 12/28/2021 Pfizer SARS-CoV-2 Monovalent Vaccination (12+ Yrs) PURPLE 06/15/2022,04/04/2021,08/11/2020,07/21 Pneumococcal Conjugate PCV 13 05/12/2018 Pneumococcal Polysaccharide PPV23 04/02/2013, Surgical History Surgery Date Site/Laterality Comments BACK SURGERY 2008 Back surgery CATARACT EXTRACTION Cataract extraction CHOLECYSTECTOMY 02/16/2023 CARDIAC CATHETERIZATION 02/01/2025 N/A Procedure: LEFT HEART CATHETERIZATION WITH CORONARY ANGIOGRAPHY AND WITH OR WITHOUT LEFT VENTRICULOGRAM [id number]; Surgeon: Missy Jhaveri MD; Location: [facility] CARDIAC ECHO TECHNOLOGIST; Service: Cardiovascular; Laterality: N/A; Medical devices from this surgery are in the Medical Devices section. CARDIAC CATHETERIZATION 02/01/2025 N/A Procedure: Coronary Flow Velocity (CFR) / Instantaneous Flow Velocity (IFR), 1st Vessel; Surgeon: Missy Jhaveri MD; Location: [facility] CARDIAC ECHO TECHNOLOGIST; Service: Cardiovascular; Laterality: N/A; Medical devices from this surgery are in the Medical Devices section. Medical History Medical History Date Comments Hypertension Hypertension Hx Other Medical blood pressure Hx Other Medical elevsated PSA; Comments: PSA 6.1 was reffered to ultrasounds of kidneys 07/28.; Outcome: Abnormal Hx Other Medical Hypertension Hx Other Medical Hypertension Chronic kidney disease hydroneph rosis Arthritis Enlarged prostate Localized cancer of skin of ear Gout Anxiety Bradycardia Family History Medical History Relation Name Comments Alzheimer's disease Brother Heart disease Brother Hypertension Brother Parkinsonism Brother Coronary artery disease Father Kristan nary artery disease; Cause of : Coronary artery disease Hypertension Father Hypertension; Stroke Father Stroke; Alzheimer's disease Mother Alzheime r's Disease; Cause of : Alzheimer's Disease Coronary artery disease Mother Kristan caballero artery disease; Relation Name Status Comments Brother Alive Father (Age 71) Mother (Age 78) Social History Tobacco Use Types Packs/Day Years Used Date Smoking Tobacco: Former Cigarettes 1.5 6 1 947 - 195 Smokeless Tobacco: Never Tobacco Cessation:Counseling Given: Not Answered Comments:Smoking History Packs/day: 1 Packs Alcohol Use Standard Drinks/Week Comments Not Currently 0 (1 standard drink = 0.6 oz pur e alcohol) occasionally [facility] Utilities Answer Date Recorded In the past 12 months has e [employer], gas, oil, or water [employer] threatened to shut off services in your home? No 01/10/2025 Social Connection and Isolation Panel Answer Date Recorded In a typical week, how many times do you talk on the phone with family, friends, or neighbors? More than three times a week 01/10/2025 How often do you get togethe r with friends or relatives? More than three times a week 01/10/2025 How often do you attend chur ch or samaritan services? Never 01/10/2025 Do you belong to any clubs o r organizations such as buddhist groups, unions, fraternal or athletic groups, or school groups? Yes 01/10/2025 How often do you attend meet ings of the clubs or organizations you belong to? 1 to 4 times per year 01/10/2025 Are you , , di vorced, , never , or living with a partner? 01/10/2025 Overall Financial Resource Strain (CARDIA) Answe r Date Recorded How hard is it for you to pa y for the very basics like food, housing, medical care, and heating? Not hard at all 01/10/2025 PHQ-2 Answer Date Recorded PHQ-2 Total Score (If total score is 3 or more points, staff should administer the PHQ-9) 0 01/14/2025 Hunger Vital Sign Answer Date Recorded Within the past 12 months, y ou worried that your food would run out before you got the money to buy more. Never true 01/11/20 25 Within the past 12 months, t he food you bought just didn't last and you didn't have money to get more. Never true 01/10/2025 PRAPARE - Transportation Answer Date Re corded In the past 12 months, has l ack of transportation kept you from medical appointments or from getting medications? No 09/2024 In the past 12 months, has l ack of transportation kept you from meetings, work, or from getting things needed for daily living? No 01/10/2025 Housing Stability Vital Sign Answer Jason e Recorded In the last 12 months, was t here a time when you were not able to pay the mortgage or rent on time? No 01/10/2025 In the past 12 months, how m any times have you moved where you were living? 0 01/10/2025 At any time in the past 12 m [facility], were you homeless or living in a fdc (including now)? No 01/10/2025 AUDIT-C Answer Date Recorded Q1: How often do you have a drink containing alcohol? Never 02/01/2025 Q2: How many drinks containi ng alcohol do you have on a typical day when you are drinking? Patient does not drink Q3: How often do you have si x or more drinks on one occasion? Never 02/01/2025 Personal Safety Answer Date Recorded Have you ever been in or are you currently in a harmful physical or emotional relationship or is someone making you feel afraid or unsafe? Denies 02/01/2025 Sex and Gender Information Value Date Recorded Sex Assigned at Not on file Legal Sex Male 2:49 PM CHAR CONVEYOR TENDER Gender Identity Not on file Sexual Orientation Not on file Obstetrics History Last Filed Vital Signs Vital Sign Reading Time Taken Comments Blood Pressure 117/59 02/01/2025 1:00 PM CDT Pulse 61 02/01/2025 1:00 PM CDT Temperature 36.4 C (97.6 F) 02/01/2025 8:02 AM CDT Respiratory Rate 16 02/01/2025 1:00 PM CDT Oxygen Saturation 97% 02/01/2025 1:00 PM CDT Inhaled Oxygen Concentration - - Weight 91.6 kg (202 lb) 02/01/2025 8:02 AM CDT Height 162.6 cm (5' 4) 02/01/2025 8:02 AM CDT Body Mass Index 34.67 02/01/2025 8:02 AM CDT Plan of Treatment Health Maintenance Due Date Last Done Comments DTaP/Tdap/Td Vaccine (1 - Tdap) 1946 Hepatitis B Screening 1953 Zoster Vaccine (1 of 2) 1987 Covid-19 Vaccine (7 - 2024-2 6 season) 2025 02/28/2023, 06/15/2022, 12/28/2021, Additional history exists Influenza Vaccine (#1) 2025 , 03/13/2023, 03/30/2022, Additional history exists Well Visit 65+ 08/03/2025 08/03/2024, 07/2022, 03/20/2021, Additional history exists Depression Screening 01/14/2026 01/14/2025, 12/03/2024, 11/25/2024, Additional history exists Fall Risk Assessment 02/01/2026 02/01/2025, 01/14/2025, 12/03/2024, Additional history exists Pneumococcal vaccine 65+ Completed 018, 04/02/2013, 03/25/2013 Medical Devices Implanted Type Area Dining Car Server Device Identifier Shelf Expiration Date Model / Serial / Lot [employer] Angio-Seal Vip 6fr Closere Device [id number] - [id number] Implanted:Qty: 1 on 02/01/2025 by Missy Jhaveri MD at [facility] Other - see comments [employer] 09/06/2025 [id number] / / [id number] Procedures Procedure Name Priority Date/Time Associated Diagnosis Comments CORONARY FLOW VELOCITY (CFR) / INSTATANEOUS FLOW VELOCITY (IFR), 1ST VESSEL Routine 02/01/2025 9:10 AM CDT Abnormal stress test Shortness of breath LEFT HEART CATHETERIZATION WITH CORONARY ANGIOGRAPHY AND WITH AND WITHOUT LEFT VENTRICULOGRAM Routine 02/01/2025 9:10 AM CDT Abnormal stress test Shortness of breath EGFR STAT 02/01/2025 8:19 AM CDT BASIC METABOLIC PANEL STAT 02/01/2025 8:19 AM CDT PROTIME-INR STAT 02/01/2025 7:25 AM CDT Abnormal stress test Anticoagulation adequate with anticoagulant therapy EGFR Routine 01/25/2025 10:58 AM CDT Abnormal stress test Shortness of breath DIFFERENTIAL AUTO Routine 01/25/2025 10:58 AM CDT Abnormal stress test Shortness of breath PROTIME-INR Routine 01/25/2025 10:58 AM CDT Abnormal stress test Shortness of breath BASIC METABOLIC PANEL Routine 01/25/2025 10:58 AM CDT Abnormal stress test Shortness of breath CBC WITH AUTO DIFFERENTIAL Routine 01/25/2025 10:58 AM CDT Abnormal stress test Shortness of breath EGFR Routine 01/07/2025 8:45 AM CDT COMPREHENSIVE METABOLIC PANEL Routine 01/07/2025 8:45 AM CDT TROPONIN T HIGH-SENSITIVITY 6-HOUR Timed 01/06/2025 3:[address] CHEST PE W CONTRAST ED 01/06/2025 1:26 PM CDT TROPONIN T HIGH-SENSITIVITY 4-HR Timed 01/06/2025 1:13 PM CDT TROPONIN T HIGH-SENSITIVITY 2-HOUR Timed 01/06/2025 11:55 AM CDT XR CHEST 1 VIEW ED 01/06/2025 9:33 AM CDT APTT STAT 01/06/2025 9:26 AM CDT PROTIME-INR STAT 01/06/2025 9:26 AM CDT EGFR STAT 01/06/2025 9:25 AM CDT PRO B-TYPE NATRIURETIC PEPTIDE Add-On 01/06/2025 9:25 AM CDT DIFFERENTIAL AUTO STAT 01/06/2025 9:2 5 AM CDT TROPONIN T HIGH-SENSITIVITY SERIES (BASELINE, 2HR, 4HR, 6HR) STAT 01/06/2025 9:25 AM CDT COMPREHENSIVE METABOLIC PANEL STAT 01/06/2025 9:25 AM CDT CBC WITH AUTO DIFFERENTIAL STAT 01/06/2025 9:25 AM CDT ECG 12-LEAD STAT 01/06/2025 9:10 AM CDT AL ARTHROCENTESIS ASPIR&/INJ MAJOR JT/BURSA W/O US Routine 12/30/2024 1:45 PM CDT Trochanteric bursitis, right hip STRESS TEST FOR DUAL READ Schedule Routine, Read Routine (OP Routine) 12/29/2024 8:55 AM CDT Chronic diastolic heart failure (HCC) NM MPI SPECT (REST AND/OR STRESS) MULTIPLE STUDIES Schedule Routine, Read Routine (OP Routine) 12/29/2024 8:55 AM CDT Chronic diastolic heart failure (HCC) EGFR Routine 12/03/2024 8:56 AM CDT Acute saddle pulmonary embolism without acute cor pulmonale (HCC) Stage 3b chronic kidney disease (HCC) DIFFERENTIAL AUTO Routine 12/03/2024 8:5 6 AM CDT Acute saddle pulmonary embolism without acute cor pulmonale (HCC) Stage 3b chronic kidney disease (HCC) COMPREHENSIVE METABOLIC PANEL Routine 12/03/2024 8:56 AM CDT Acute saddle pulmonary embolism without acute cor pulmonale (HCC) Stage 3b chronic kidney disease (HCC) CBC WITH AUTO DIFFERENTIAL Routine 12/03/2024 8:56 AM CDT Acute saddle pulmonary embolism without acute cor pulmonale (HCC) Stage 3b chronic kidney disease (HCC) EGFR Routine 11/17/2024 10:52 AM CDT Acute saddle pulmonary embolism without acute cor pulmonale (HCC) DIFFERENTIAL AUTO Routine 11/17/2024 10:52 AM CDT Acute saddle pulmonary embolism without acute cor pulmonale (HCC) LIPID PANEL Routine 11/17/2024 10:52 AM CDT Encounter for screening for lipid disorder COMPREHENSIVE METABOLIC PANEL Routine 11/17/2024 10:52 AM CDT Acute saddle pulmonary embolism without acute cor pulmonale (HCC) CBC WITH AUTO DIFFERENTIAL Routine 11/17/2024 10:52 AM CDT Acute saddle pulmonary embolism without acute cor pulmonale (HCC) from Last 3 Months Results * LEFT HEART CATHETERIZATION WITH CORONARY ANGIOGRAPHY AND WITH AND WITHOUT LEFT VENTRICULOGRAM, CORONARY FLOW VELOCITY (CFR) / INSTATANEOUS FLOW VELOCITY (IFR), 1ST VESSEL (02/01/2025 9:10 AM CDT) Anatomical Region Laterality Modality X-Ray Angiograph y Narrative 02/01/2025 9:26 AM CDT CARDIAC CATHETERIZATION BRIEF CLINICAL HISTORY Mr. Yoko Lopez is a very pleasant brought in for an elective cardiac catheterization procedure to rule out obstructive coronary artery disease in view of his abnormal stress test performed to assess his recent hospital admission for pulmonary embolism and troponin elevation. Cardiac catheterization/intervention procedures were discussed in detail with the patient. The indications, risks, benefits and alternatives were discussed. The risks include, but are not limited to, , stroke, myocardial infarction, need for emergency bypass surgery, pericardial tamponade, allergy to contrast/ anaesthetic agents, contrast induced nephropathy that may require temporary or permanent dialysis, radiation injury, vascular complications, including bleeding that may require blood transfusions, retroperitoneal hematoma that may be fatal, pseudoaneurysm formation, loss of limb; arrhythmias/ respiratory failure that may need cardioversion, intubation, CPR; and possible need for repeat procedures. Patient verbalizes understanding of the risks and benefits and patient is willing to proceed with it. PROCEDURES PERFORMED 1. Left heart catheterization. 2. Left ventriculogram. 3. Selective coronary angiography. 4. IFR measurement of the mid LAD stenosis 5. Angio-Seal closure device to the right femoral arteriotomy site. GROIN Right groin. SHEATH A 5-Vincentian sheath in the right femoral artery. MODERATE SEDATION: Patient received 50 mg of Benadryl, 2 mg of Versed and 50 mcg of fentanyl were utilized to induce moderate sedation for a procedure duration of 14 minutes that was completely supervised. PROCEDURE DETAILS After obtaining informed consent and administering lidocaine to the right groin, a 5-Vincentian sheath was introduced into the right femoral artery using modified Selinger technique. Over a J-tip guidewire, a left Jeremias catheter, a right Jeremias catheter and a pigtail catheter were used in sequence to perform left coronary angiography, right coronary angiography and left ventriculography. Left ventricular hemodynamic studies were performed including pressure gradient across the aortic valve. Patient in general tolerated the procedure well. No immediate complications were noted. FINDINGS 1. Left main large, normal. 2. Left anterior descending artery shows a good caliber vessel with a possible mid segment ectasia and a relatively small caliber distal vessel, shows a 60% stenosis right at the takeoff of the 1st diagonal branch. This was eccentric and appears to be somewhat worse in 1 of the views. There was also a focal 40% stenosis a few mm downstream. No further obstructive anatomy. A single diagonal branch is a good caliber vessel with a bifurcating anatomy and may have some ostial stenosis that is probably [id number], with no obstructive disease. 3. Left circumflex artery is large caliber and nondominant, possible ectasia in the mid segment, shows angiographic normal appearance including a slender distal vessel and a small caliber 1st obtuse marginal branch and a good caliber long distribution 2nd obtuse marginal branch. 4. Right coronary artery is a large caliber vessel, also possibly ectatic in the mid segment, dominant, has angiographic normal appearance including a good caliber PLV branch and a relatively small caliber PDA branch. 5. Hyperdynamic left ventricle systolic function, visually estimate ejection fraction more than 70%. 6. Normal left ventricular filling pressures, end-diastolic pressure of 10 mmHg. SUMMARY OF FINDINGS 1. 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 Hyperdynamic LV function, visually estimated ejection fraction more than 70%. 3. Normal left ventricular filling pressures, LVEDP 10 mm of mercury. PLAN Proceed with functional assessment of the LAD stenosis with IFR. INTERVENTION PROCEDURE DETAILS IFR measurement of the LAD: After finishing the diagnostic catheterization, the left Jeremias diagnostic catheter is used to engage the left main coronary artery. After administering Angiomax for anticoagulation purposes, an Omni wire he has preprepared and threaded into the left main coronary artery and pressures were normalized. I advanced the wire carefully to cross the stenosis and parked in the distal left anterior descending artery. IFR was measured both spot as well as pullback. Patient in general tolerated the procedure well. No immediate complications were noted. Findings: Normalized IFR was 1.0. Post cross IFR was 0.93. Pullback IFR was normal. Conclusion: Hemodynamically insignificant stenosis of the mid left anterior descending artery stenosis. PLAN Bed rest for 2 hours. IVF 0.9 NS 100 cc/hr for 4 hours. Risk factor modification strategy discussed with the patient. It included weight reduction through exercise and dietary discretion, optimal control of hypertension, lipid status. Discussed with the patient and family (his and daughter in the waiting area) about the details of the procedure, the results, post cath care instructions including activity limitations explained. Suggest aspirin 81 mg once a day. Patient will be able to go home after the bedrest as long as he has no post cath symptoms or issues after ambulation. Follow up in clinic in about 4 weeks or earlier if he has any cardiac issues. Missy Jhaveri MD us Missy Jhaveri MD CV CARDIAC CATH PROCEDURES Final Result * (ABNORMAL) eGFR (02/01/2025 8:19 AM CDT) eGFR 43(L) >=60 mL/min/1. 73 m2 Comment: Interpretive Data Reference Interval Normal >/= 90 mL/min/1.73m2 Mildly decreased* 60 - 89 mL/min/1.73m2 Mildly to moderately decreased 45 - 59 mL/min/1.73m2 Moderately to severely decreased 30 - 44 mL/min/1.73m2 Severely decreased 15 - 29 mL/min/1.73m2 Kidney Failure < 15 mL/min/1.73m2 *Relative to young adult level Estimated glomerular filtration rate is determined by the 2020 CKD-EPI equation recommended by the National Kidney Foundation (A Unifying Approach to GFR Estimation: Recommendations of the NKF-ASK Task Force on Reassessing the Inclusion of Race in Diagnosing Kidney Disease, JASN 2020). The CKD-EPI equation should not be used for patients with unstable renal function and has not been validated in children and those over 70. Current interpretive data was last reviewed 2021. Blood 02/01/2025 8:19 AM CDT 02/01/2025 8:23 AM CDT us Missy Jhaveri MD LAB BLOOD ORDERABLES Final Result [facility] ([place] [address] [facility] [place] [address] * (ABNORMAL) Basic metabolic panel (02/01/2025 8:19 AM CDT) Sodium 142 135 - 145 mmol/L [facility] Potassium, pl 4.5 3.3 - 4.9 mmol/L [facility] Chloride 107 97 - 110 mmol/L [facility] CO2 22 22 - 32 mmol/L [facility] Anion gap 13 2 - 15 mmol/L [facility] BUN 28(H) 6 - 25 mg/dL [facility] Creatinine 1.56(H) 0.80 - 1.30 mg/dL [facility] Glucose 111 70 - 199 mg/dL [facility] Comment: Interpretive Data Fasting glucose >/= 126 mg/dl is diagnostic for diabetes. Fasting is defined as no caloric intake for at least 8 hours. Fasting glucose between 100 mg/dl to 125 mg/dl is diagnostic of prediabetes. In a patient with classic symptoms of hyperglycemia or hyperglycemic crisis, a random glucose >/= 200 mg/dl is diagnostic for diabetes. In the absence of unequivocal hyperglycemia, results should be confirmed by repeat testing. The classification and Diagnosis of Diabetes Diabetes Care 202; 46: S19-S40. Current interpretive data was last revised 2022. Calcium 8.9 8.5 - 10.3 mg/dL [facility] ([place]) Blood 02/01/2025 8:19 AM CDT 02/01/2025 8:23 AM CDT Missy Jhaveri MD LAB BLOOD ORDERABLES Final Result [facility] [address] [facility] [address] [place] [address] * Protime-INR (02/01/2025 7:25 AM CDT) PT 12.5 10.2 - 13.5 sec [facility] INR 1.11 0.90 - 1.20 [facility] Comment: Interpretive data Oral anticoagulant therapeutic ranges: Venous thromboembolism prophylaxis or treatment: 2.0-3.0 CARDIOLOGY Standard range: 2.0-3.0 High-intensity range: 2.5-3.5 Refer to indication-specific guidelines for appropriate target ranges for prosthetic heart valve replacement. Current interpretive data was last revised on 2019. Blood 02/01/2025 7:25 AM CDT 02/01/2025 7:44 AM CDT Missy Jhaveri MD LAB BLOOD ORDERABLES Final Result [facility] [address] [facility] [address] [place] [address] * (ABNORMAL) eGFR (01/25/2025 10:58 AM CDT) eGFR 38(L) >=60 mL/min/1. 73 m2 Comment: Interpretive Data Reference Interval Normal >/= 90 mL/min/1.73m2 Mildly decreased* 60 - 89 mL/min/1.73m2 Mildly to moderately decreased 45 - 59 mL/min/1.73m2 Moderately to severely decreased 30 - 44 mL/min/1.73m2 Severely decreased 15 - 29 mL/min/1.73m2 Kidney Failure < 15 mL/min/1.73m2 *Relative to young adult level Estimated glomerular filtration rate is determined by the 2020 CKD-EPI equation recommended by the National Kidney Foundation (A Unifying Approach to GFR Estimation: Recommendations of the NKF-ASK Task Force on Reassessing the Inclusion of Race in Diagnosing Kidney Disease, JASN 2020). The CKD-EPI equation should not be used for patients with unstable renal function and has not been validated in children and those over 70. Current interpretive data was last reviewed 2021. Blood 01/25/2025 10:5 8 AM CDT 01/25/2025 1:46 PM CDT Missy Jhaveri MD LAB BLOOD ORDERABLES Final Result [facility] [address] [facility] [facility] [address] [place] [address] * Differential, auto (01/25/2025 10:58 AM CDT) Pathologist [facility] Neutrophil abs 4.81 1.50 - 6.50 K/cumm Imm gran abs 0.03 0.00 - 0.10 K/cumm [facility] Lymphocyte abs 1.51 0.80 - 3.30 K/cumm [facility] Monocyte abs 0.68 0.20 - 0.80 K/cumm [facility] Eosinophil abs 0.26 0.00 - 0.50 K/cumm [facility] Basophil abs 0.05 0.00 - 0.10 K/cumm [facility] Neutrophil pct 65.5 % [facility] Comment: Interpretive Data Percent cell count reference ranges are not reported, since discordance with absolute values may lead to misinterpretation of CBC data. Current Interpretive Data was last revised on 2017. Imm gran pct 0.4 % [facility] Comment: Interpretive Data Percent cell count reference ranges are not reported, since discordance with absolute values may lead to misinterpretation of CBC data. Current Interpretive Data was last revised on 2017. Lymphocyte pct 20.6 % [facility] Comment: Interpretive Data Percent cell count reference ranges are not reported, since discordance with absolute values may lead to misinterpretation of CBC data. Current Interpretive Data was last revised on 2017. Monocyte pct 9.3 % [facility] Comment: Interpretive Data Percent cell count reference ranges are not reported, since discordance with absolute values may lead to misinterpretation of CBC data. Current Interpretive Data was last revised on 2017. Eosinophil pct 3.5 % [facility] Comment: Interpretive Data Percent cell count reference ranges are not reported, since discordance with absolute values may lead to misinterpretation of CBC data. Current Interpretive Data was last revised on 2017. Basophil pct 0.7 % [facility] Comment: Interpretive Data Percent cell count reference ranges are not reported, since discordance with absolute values may lead to misinterpretation of CBC data. Current Interpretive Data was last revised on 2017. Blood 01/25/2025 10:5 8 AM CDT 01/25/2025 1:46 PM CDT us Missy Jhaveri MD LAB BLOOD ORDERABLES Final Result [facility] [address] [facility] [place] [address] * (ABNORMAL) CBC with auto differential (01/25/2025 10:58 AM CDT) WBC 7.34 3.80 - 9.90 K/cumm Hgb 13.5 13.0 - 17.5 g/dL [facility] Hct 42.2 38.9 - 50.3 % [facility] Plt 192 150 - 400 K/cumm [facility] MPV 10.0 9.1 - 12.3 fL [facility] RBC 4.27(L) 4.30 - 5.80 M/cumm [facility] MCV 98.8(H) 81.3 - 96.4 fL [facility] MCH 31.6 27.1 - 33.3 pg [facility] MCHC 32.0(L) 32.3 - 35.7 g/dL [facility] RDW CV 13.6 11.1 - 14.9 % [facility] RDW SD 49.0(H) 35.7 - 48.1 fL [facility] NRBC abs 0.00 0.00 - 0.01 K/cumm [facility] Blood 01/25/2025 10:5 8 AM CDT 01/25/2025 1:46 PM CDT Missy Jhaveri MD LAB BLOOD ORDERABLES Final Result Performing Organization Address [facility] Co de Phone Number [address] [place], [place] [id number] * (ABNORMAL) Protime-INR (01/25/2025 10:58 AM CDT) PT 16.50(H) 12.00 - 14.60 sec INR 1.31(H) 0.90 - 1.20 [facility] Comment: Interpretive data Oral anticoagulant therapeutic ranges: Venous thromboembolism prophylaxis or treatment: 2.0-3.0 CARDIOLOGY Standard range: 2.0-3.0 High-intensity range: 2.5-3.5 Refer to indication-specific guidelines for appropriate target ranges for prosthetic heart valve replacement. Current interpretive data was last revised on 2019. Blood 01/25/2025 10:5 8 AM CDT 01/25/2025 1:46 PM CDT Missy Jhaveri MD LAB BLOOD ORDERABLES Final Result Performing Organization Address City/[facility] Co de Phone Number [address] [place] [address] * (ABNORMAL) Basic metabolic panel (01/25/2025 10:58 AM CDT) Sodium 144 135 - 145 mmol/L Potassium, pl 4.3 3.3 - 4.9 mmol/L [facility] Chloride 106 97 - 110 mmol/L [facility] CO2 28 22 - 32 mmol/L [facility] Anion gap 10 2 - 15 mmol/L [facility] BUN 27(H) 6 - 25 mg/dL [facility] Creatinine 1.71(H) 0.80 - 1.30 mg/dL [facility] Glucose 119 70 - 199 mg/dL [facility] Comment: Interpretive Data Fasting glucose >/= 126 mg/dl is diagnostic for diabetes. Fasting is defined as no caloric intake for at least 8 hours. Fasting glucose between 100 mg/dl to 125 mg/dl is diagnostic of prediabetes. In a patient with classic symptoms of hyperglycemia or hyperglycemic crisis, a random glucose >/= 200 mg/dl is diagnostic for diabetes. In the absence of unequivocal hyperglycemia, results should be confirmed by repeat testing. The classification and Diagnosis of Diabetes Diabetes Care 2021; 46: S19-S40. Current interpretive data was last revised 2022. Calcium 9.0 8.5 - 10.3 mg/dL [facility] Blood 01/25/2025 10:5 8 AM CDT 01/25/2025 1:46 PM CDT Missy Jhaveri MD LAB BLOOD ORDERABLES Final Result [facility] [address] [facility] [place] [address] * (ABNORMAL) eGFR (01/07/2025 8:45 AM CDT) eGFR 47(L) >=60 mL/min/1. 73 m2 Comment: Interpretive Data Reference Interval Normal >/= 90 mL/min/1.73m2 Mildly decreased* 60 - 89 mL/min/1.73m2 Mildly to moderately decreased 45 - 59 mL/min/1.73m2 Moderately to severely decreased 30 - 44 mL/min/1.73m2 Severely decreased 15 - 29 mL/min/1.73m2 Kidney Failure < 15 mL/min/1.73m2 *Relative to young adult level Estimated glomerular filtration rate is determined by the 2020 CKD-EPI equation recommended by the National Kidney Foundation (A Unifying Approach to GFR Estimation: Recommendations of the NKF-ASK Task Force on Reassessing the Inclusion of Race in Diagnosing Kidney Disease, JASN 2021). The CKD-EPI equation should not be used for patients with unstable renal function and has not been validated in children and those over 70. Current interpretive data was last reviewed 2021. Blood 01/07/2025 8:45 AM CDT 01/07/2025 8:54 AM CDT us Garett Chacon MD LAB BLOOD ORDERABLES F inal Result [facility] ([place]) [address] [facility] [address] [facility] [place] [address] * (ABNORMAL) Comprehensive metabolic panel (01/07/2025 8:45 AM CDT) Sodium 140 135 - 145 mmol/L [facility] ([place]) Potassium, pl 4.6 3.3 - 4.9 mmol/L [facility] ([place]) Chloride 104 97 - 110 mmol/L [facility] CO2 24 22 - 32 mmol/L [facility] Anion gap 12 2 - 15 mmol/L [facility] ([place]) BUN 26(H) 6 - 25 mg/dL [facility]) Creatinine 1.43(H) 0.80 - 1.30 mg/dL [facility] ([place] Glucose 98 70 - 199 mg/dL [facility] ([place] Comment: Interpretive Data Fasting glucose >/= 126 mg/dl is diagnostic for diabetes. Fasting is defined as no caloric intake for at least 8 hours. Fasting glucose between 100 mg/dl to 125 mg/dl is diagnostic of prediabetes. In a patient with classic symptoms of hyperglycemia or hyperglycemic crisis, a random glucose >/= 200 mg/dl is diagnostic for diabetes. In the absence of unequivocal hyperglycemia, results should be confirmed by repeat testing. The classification and Diagnosis of Diabetes Diabetes Care 202; 46: S19-S40. Current interpretive data was last revised 2022. Calcium 9.1 8.5 - 10.3 mg/dL [facility] ([place] Bilirubin, total 0.7 0.1 - 1.2 mg/dL [facility] ([place] Protein, pl 6.4(L) 6.5 - 8.5 g/dL [facility]) Albumin 3.9 3.5 - 5.0 g/dL [facility] ([place] Alk phos 136(H) 40 - 130 Units/L [facility] ALT 29 7 - 55 Units/L [facility] AST 21 10 - 50 Units/L [facility] Blood 01/07/2025 8:45 AM CDT 01/07/2025 8:54 AM CDT us Garett Chacon MD LAB BLOOD ORDERABLES F inal Result Performing Organization Address City/[facility]/ZIP Co de Phone Number [facility] ([place]) [address] [facility] [place] [address] * (ABNORMAL) Troponin T high-sensitivity 6-hour (01/06/2025 3:15 PM CDT) Trop T hs 33(H) <=22 ng/L [facility] ([place] Comment: Interpretive Data For further hscTnT resources including the diagnostic algorithm and an aid in interpretation, copy and paste this link: https://nrl.testcatalog.org/show/hsTrop Current Interpretive Data last revised 2020. Trop T hs delta -5 ng/L [facility] ([place]) Trop T hs interp Equivocal [facility] ([place]) Blood 01/06/2025 3:15 PM CDT 01/06/2025 3:39 PM CDT us Amy Hsu MD LAB BLOOD ORDERABLES Coby l Result [facility] ([place]) [address] [facility] [address] [place] [address] * CT Chest PE (CTA) W Contrast (01/06/2025 1:26 PM CDT) Anatomical Region Laterality Modality Body N/A Computed Tomogra phy 01/06/2025 7:50 PM CDT Narrative 01/06/2025 7:53 PM CDT EXAM DESCRIPTION: CT CHEST PE (CTA) W CONTRAST REASON FOR STUDY: Pulmonary embolism (PE) suspected, high prob Intermittent chest pain for several weeks, lightheaded. Hx of PE in October 2024. TECHNIQUE: CT angiogram of the chest performed with intravenous contrast using helical scanning technique with dynamic intravenous contrast injection. Reconstructed coronal and sagittal MPR images reviewed. All images stored on PACS. 3D MIP images rendered on scanning unit and reviewed at time of interpretation. Automated exposure control was used as a dose optimization technique for this examination. CONTRAST TYPE/DOSE: 100mL of IOVERSOL 350 MG IODINE/ML INTRAVENOUS SYRINGE injected via intravenous COMPARISON: 11/03/2024 FINDINGS: VASCULATURE: No identified pulmonary emboli. LUNGS: No nodules or masses. No pneumonia. Atelectatic changes at the lung bases. PLEURA: No effusion. No pneumothorax. MEDIASTINUM/LALA: No identified masses or abnormal nodes. HEART: Heart size is normal with no pericardial effusion. Coronary artery calcification. AXILLA: No adenopathy. CHEST WALL: No masses. No subcutaneous air. HARDWARE/LINES/TUBES: None. UPPER ABDOMEN: Cholecystectomy. MUSCULOSKELETAL: No significant abnormality. OTHER: No significant abnormality. IMPRESSION: No CT evidence for pulmonary embolus. THIS IS AN ELECTRONICALLY VERIFIED FINAL REPORT 01/06/2025 7:53 PM - Electronically signed by Jose Ramon Garcia M.D. KT: KT Report ID: [id number] Reading Location: [id number] Procedure Note Jose Ramon Garcia MD - 01/06/2025 EXAM DESCRIPTION: CT CHEST PE (CTA) W CONTRAST REASON FOR STUDY: Pulmonary embolism (PE) suspected, high prob Intermittent chest pain for several weeks, lightheaded. Hx of PE in October2024. TECHNIQUE: CT angiogram of the chest performed with intravenous contrastusing helical scanning technique with dynamic intravenous contrast injection. Reconstructed coronal and sagittal MPR images reviewed. All images storedon PACS. 3D MIP images rendered on scanning unit and reviewed at time of interpretation. Automated exposure control was used as a doseoptimization technique for this examination. CONTRAST TYPE/DOSE: 100mL of IOVERSOL 350 MG IODINE/ML INTRAVENOUSSYRINGE injected via intravenous COMPARISON: 11/03/2024 FINDINGS: VASCULATURE: No identified pulmonary emboli. LUNGS: No nodules or masses. No pneumonia. Atelectatic changes at thelung bases. PLEURA: No effusion. No pneumothorax. MEDIASTINUM/LALA: No identified masses or abnormal nodes. HEART: Heart size is normal with no pericardial effusion. Coronaryartery calcification. AXILLA: No adenopathy. CHEST WALL: No masses. No subcutaneous air. HARDWARE/LINES/TUBES: None. UPPER ABDOMEN: Cholecystectomy. MUSCULOSKELETAL: No significant abnormality. OTHER: No significant abnormality. IMPRESSION: No CT evidence for pulmonary embolus. THIS IS AN ELECTRONICALLY VERIFIED FINAL REPORT 01/06/2025 7:53 PM - Electronically signed by Jose Ramon Garcia M.D. KT: BENITA Report ID: [id number] Reading Location: [place] [address] Emelina Durant NP IMG CT PROCEDURES Fi nal Result * (ABNORMAL) Troponin T high-sensitivity 4-hour (01/06/2025 1:13 PM CDT) Trop T hs 32(H) <=22 ng/L [facility] ([place]) Comment: Interpretive Data For further hscTnT resources including the diagnostic algorithm and an aid in interpretation, copy and paste this link: https://nrl.testcatalog.org/show/hsTrop Current Interpretive Data last revised 2020. Trop T hs delta -6 ng/L [facility] ([place]) Trop T hs interp Equivocal [facility] ([place] Blood 01/06/2025 1:13 PM CDT 01/06/2025 1:15 PM CDT Amy Hsu MD LAB BLOOD ORDERABLES Coby l Result [facility] ([place] [address] [facility] [place] [address] * (ABNORMAL) Troponin T high-sensitivity 2-hour (01/06/2025 11:55 AM CDT) Trop T hs 36(H) <=22 ng/L [facility] ([place] Comment: Interpretive Data For further hscTnT resources including the diagnostic algorithm and an aid in interpretation, copy and paste this link: https://nrl.testcatalog.org/show/hsTrop Current Interpretive Data last revised 2020. Trop T hs delta -2 ng/L [facility] Trop T hs interp Insignificant [facility] Blood 01/06/2025 11:5 5 AM CDT 01/06/2025 11:58 AM CDT Amy Hsu MD LAB BLOOD ORDERABLES Coby cummings Result [facility] ([place]) [address] [facility] [place] [address] * XR CHEST 1 VIEW PORTABLE (01/06/2025 9:33 AM CDT) Anatomical Region Laterality Modality Body, Chest N/A Computed Radiogr aphy 01/06/2025 9:37 AM CDT Narrative 01/06/2025 9:38 AM CDT EXAM DESCRIPTION: XR CHEST 1 VIEW REASON FOR STUDY: chest pain c/o chest pain for weeks. Pt reports hx of pulmonary embolism in October. Pt is scheduled to have a cardiac catheterization at the end of January. Pt reports pain is intermittent and he is light headed. TECHNIQUE: Single frontal radiographic view(s) of the chest. COMPARISON: 11/08/2024 FINDINGS: There is cardiomegaly. The pulmonary vasculature and mediastinum are grossly stable. There is no definite evidence of a pneumothorax. There is no definite evidence of focal consolidation or pleural effusion. There is minimal bibasilar subsegmental atelectasis and scarring The osseous structures are acutely grossly stable. IMPRESSION: 1. Minimal bibasilar subsegmental atelectasis and scarring without definite evidence of focal consolidation. 2. Cardiomegaly. THIS IS AN ELECTRONICALLY VERIFIED FINAL REPORT 01/06/2025 9:38 AM - Electronically signed by Tung Treviño D.O. PS: PS Report ID: [id number] Reading Location: [place] [address] Procedure Note Tung Treviño DO - 01/06/2025 EXAM DESCRIPTION: XR CHEST 1 VIEW REASON FOR STUDY: chest pain c/o chest pain for weeks. Pt reports hx of pulmonary embolism in October. Ptis scheduled to have a cardiac catheterization at the end of January. Ptreports pain is intermittent and he is light headed. TECHNIQUE: Single frontal radiographic view(s) of the chest. COMPARISON: 11/08/2024 FINDINGS: There is cardiomegaly. The pulmonary vasculature and mediastinum aregrossly stable. There is no definite evidence of a pneumothorax. There is no definite evidence of focal consolidation or pleural effusion. There is minimal bibasilar subsegmental atelectasis and scarring The osseous structures are acutely grossly stable. IMPRESSION: 1. Minimal bibasilar subsegmental atelectasis and scarring withoutdefinite evidence of focal consolidation. 2. Cardiomegaly. THIS IS AN ELECTRONICALLY VERIFIED FINAL REPORT 01/06/2025 9:38 AM - Electronically signed by Tung Treviño D.O. PS: PS Report ID: [id number] Reading Location: [place] [address] us Amy Hsu MD IMG XR PROCEDURES Final R esult * aPTT (01/06/2025 9:26 AM CDT) aPTT 35 28 - 38 sec [facility] ([place]) Comment: Interpretive Data Heparin therapeutic range: 66.0 - 100.0 seconds. Range based on correlation with therapeutic heparin activity range of 0.3 - 0.7 Units/mL. Current interpretive data was last revised on 2023. Blood 01/06/2025 9:26 AM CDT 01/06/2025 9:29 AM CDT Emelina Durant NP LAB BLOOD ORDERABLES Final Result Performing Organization Address [facility] Co de Phone Number [facility] ([place]) 1 [facility] [place] [address] * (ABNORMAL) Protime-INR (01/06/2025 9:26 AM CDT) PT 15.2(H) 9.7 - 13.0 sec [facility] ([place]) INR 1.40(H) 0.90 - 1.20 [facility] ([place]) Comment: Interpretive data Oral anticoagulant therapeutic ranges: Venous thromboembolism prophylaxis or treatment: 2.0-3.0 CARDIOLOGY Standard range: 2.0-3.0 High-intensity range: 2.5-3.5 Refer to indication-specific guidelines for appropriate target ranges for prosthetic heart valve replacement. Current interpretive data was last revised on 2019. Blood 01/06/2025 9:26 AM CDT 01/06/2025 9:29 AM CDT Emelina Durant NP LAB BLOOD ORDERABLES Final Result Performing Organization Address [facility] Co de Phone Number [facility] ([place]) 1 [place] [address] * (ABNORMAL) Troponin T high-sensitivity series (baseline, 2hr, 4hr, 6hr) (01/06/2025 9:25 AM CDT) Trop T hs 38(H) <=22 ng/L [facility] ([place]) Comment: Interpretive Data For further hscTnT resources including the diagnostic algorithm and an aid in interpretation, copy and paste this link: https://nrl.testcatalog.org/show/[email or web address] Current Interpretive Data last revised 2020. Blood 01/06/2025 9:25 AM CDT 01/06/2025 9:29 AM CDT Loyda Henriquez MD LAB BLOOD ORDERABLES Final Res ult [facility] ([place]) 1 [facility] [place] [address] * (ABNORMAL) eGFR (01/06/2025 9:25 AM CDT) eGFR 51(L) >=60 mL/min/1. 73 m2 Comment: Interpretive Data Reference Interval Normal >/= 90 mL/min/1.73m2 Mildly decreased* 60 - 89 mL/min/1.73m2 Mildly to moderately decreased 45 - 59 mL/min/1.73m2 Moderately to severely decreased 30 - 44 mL/min/1.73m2 Severely decreased 15 - 29 mL/min/1.73m2 Kidney Failure < 15 mL/min/1.73m2 *Relative to young adult level Estimated glomerular filtration rate is determined by the 2020 CKD-EPI equation recommended by the National Kidney Foundation (A Unifying Approach to GFR Estimation: Recommendations of the NKF-ASK Task Force on Reassessing the Inclusion of Race in Diagnosing Kidney Disease, JASN 2020). The CKD-EPI equation should not be used for patients with unstable renal function and has not been validated in children and those over 70. Current interpretive data was last reviewed 2021. Blood 01/06/2025 9:25 AM CDT 01/06/2025 9:29 AM CDT us Loyda Henriquez MD LAB BLOOD ORDERABLES Final Res ult [facility] ([place]) 1 [facility] [place] [address] * (ABNORMAL) Differential, auto (01/06/2025 9:25 AM CDT) Neutrophil abs 6.75(H) 1.50 - 6.50 K/cumm Imm gran abs 0.07 0.00 - 0.10 K/cumm [facility] ([place]) Lymphocyte abs 1.80 0.80 - 3.30 K/cumm [facility] ([place]) Monocyte abs 0.90(H) 0.20 - 0.80 K/cumm [facility] ([place]) Eosinophil abs 0.22 0.00 - 0.50 K/cumm [facility] ([place]) Basophil abs 0.03 0.00 - 0.10 K/cumm [facility] ([place]) Neutrophil pct 69.1 % [facility] ([place]) Comment: Interpretive Data Percent cell count reference ranges are not reported, since discordance with absolute values may lead to misinterpretation of CBC data. Current Interpretive Data was last revised on 2017. Imm gran pct 0.7 % [facility] ([place]) Comment: Interpretive Data Percent cell count reference ranges are not reported, since discordance with absolute values may lead to misinterpretation of CBC data. Current Interpretive Data was last revised on 2017. Lymphocyte pct 18.4 % [facility] ([place]) Comment: Interpretive Data Percent cell count reference ranges are not reported, since discordance with absolute values may lead to misinterpretation of CBC data. Current Interpretive Data was last revised on 2017. Monocyte pct 9.2 % [facility] ([place]) Comment: Interpretive Data Percent cell count reference ranges are not reported, since discordance with absolute values may lead to misinterpretation of CBC data. Current Interpretive Data was last revised on 2017. Eosinophil pct 2.3 % [facility] ([place]) Comment: Interpretive Data Percent cell count reference ranges are not reported, since discordance with absolute values may lead to misinterpretation of CBC data. Current Interpretive Data was last revised on 2017. Basophil pct 0.3 % [facility] ([place]) Comment: Interpretive Data Percent cell count reference ranges are not reported, since discordance with absolute values may lead to misinterpretation of CBC data. Current Interpretive Data was last revised on 2017. Blood 01/06/2025 9:25 AM CDT 01/06/2025 9:29 AM CDT us Loyda Henriquez MD LAB BLOOD ORDERABLES Final Res ult Performing Organization Address City/[facility]/ZIP Co de Phone Number [facility] ([place]) 1 [facility] [place] [address] * Pro B-type natriuretic peptide (01/06/2025 9:25 AM CDT) NT-proBNP 122 <=450 pg/mL [facility] ([place]) Comment: Interpretive Comments: A. Dyspnea in Acute Care Setting All Ages: < 300 pg/ml, acute heart failure unlikely. < 50 yrs: 300 - 450 pg/ml, further investigation warranted. > 450 pg/ml, acute heart failure likely. 50 - 74 yrs: 300 - 900 pg/ml, further investigation warranted. > 900 pg/ml, acute heart failure likely . > or = 75 yrs: 450 - 1800 pg/ml, further investigation warranted. > 1800 pg/ml, acute heart failure likely. B. Non-acute Setting < 75 yrs < 125 pg/ml, rules out heart failure. > or = 125 pg/ml, further investigation warranted. > or = 75 yrs < 450 pg/ml, rules out heart failure. > or = 450 pg/ml, further investigation warranted. - Knowledge of each individual patient's NT-proBNP range may be more useful than using similar cut-points for every patient. Please note that marked elevations in NT-proBNP levels may be observed in state other than Left Ventricular Congestive Failure, including: acute coronary syndromes, right heart strain/failure (including pulmonary embolism and cor pulmonale), critical illness, renal failure, as well as advanced age. - References: 1. Genaro BARBA et.al. Eur Heart J. 2006:27:330-337. 2. Juan Francisco RW, Valery CASTILLO. J. AM Sunitha Cardiol: Cardiovasc Imag. 2009;2: 216- 225. Interpretive Data Last Revised Date: 2018. Blood 01/06/2025 9:25 AM CDT 01/06/2025 9:39 AM CDT Emelina Durant NP LAB BLOOD ORDERABLES Final Result [facility] ([place]) 1 [facility] [place] [address] * (ABNORMAL) CBC with auto differential (01/06/2025 9:25 AM CDT) [facility] WBC 9.77 3.80 - 9.90 K/cumm Hgb 14.7 13.0 - 17.5 g/dL [facility] Hct 45.2 38.9 - 50.3 % [facility]) Plt 233 150 - 400 K/cumm [facility]) MPV 9.7 9.1 - 12.3 fL [facility]) RBC 4.68 4.30 - 5.80 M/cumm [facility] ([place]) MCV 96.6(H) 81.3 - 96.4 fL [facility]) MCH 31.4 27.1 - 33.3 pg [facility]) MCHC 32.5 32.3 - 35.7 g/dL [facility]) RDW CV 13.3 11.1 - 14.9 % [facility] RDW SD 47.3 35.7 - 48.1 fL [facility] NRBC abs 0.00 0.00 - 0.01 K/cumm [facility] Blood Venous blood specimen / Unknown 01/06/2025 9:25 AM CDT 01/06/2025 9:29 AM CDT us Loyda Henriquez MD LAB BLOOD ORDERABLES Final Res ult [facility] 1 [facility] [place] [address] * (ABNORMAL) Comprehensive metabolic panel (01/06/2025 9:25 AM CDT) [facility] Sodium 141 135 - 145 mmol/L [facility] Potassium, pl 4.4 3.3 - 4.9 mmol/L [facility]) Chloride 104 97 - 110 mmol/L [facility] CO2 27 22 - 32 mmol/L [facility]) Anion gap 10 2 - 15 mmol/L [facility] BUN 24 6 - 25 mg/dL [facility]) Creatinine 1.35(H) 0.80 - 1.30 mg/dL [facility] Glucose 99 70 - 199 mg/dL [facility]) Comment: Interpretive Data Fasting glucose >/= 126 mg/dl is diagnostic for diabetes. Fasting is defined as no caloric intake for at least 8 hours. Fasting glucose between 100 mg/dl to 125 mg/dl is diagnostic of prediabetes. In a patient with classic symptoms of hyperglycemia or hyperglycemic crisis, a random glucose >/= 200 mg/dl is diagnostic for diabetes. In the absence of unequivocal hyperglycemia, results should be confirmed by repeat testing. The classification and Diagnosis of Diabetes Diabetes Care 2021; 46: S19-S40. Current interpretive data was last revised 2022. Calcium 9.1 8.5 - 10.3 mg/dL [facility] Bilirubin, total 0.6 0.1 - 1.2 mg/dL [facility] ([place]) Protein, pl 6.4(L) 6.5 - 8.5 g/dL [facility] ([place]) Albumin 4.0 3.5 - 5.0 g/dL [facility]) Alk phos 137(H) 40 - 130 Units/L [facility]) ALT 32 7 - 55 Units/L [facility] AST 25 10 - 50 Units/L [facility]) Blood 01/06/2025 9:25 AM CDT 01/06/2025 9:29 AM CDT us Loyda Henriquez MD LAB BLOOD ORDERABLES Final Res ult [facility] ([place]) 1 [facility] [place] [address] * ECG 12 lead (01/06/2025 9:10 AM CDT) 01/06/2025 9:10 AM CDT [facility]ative [facility] - 01/06/2025 5:14 PM CDT Vent Rate: 60 bpm RR Interval: 990 msec AL Interval: 172 msec QRS Duration: 158 msec QT Interval: 402 msec QTC Interval: 403 msec P-R-T [place]: 38 - -51 - -14 degrees IMPRESSION: SINUS RHYTHM RIGHT BUNDLE BRANCH BLOCK [120+ ms QRS DURATION, UPRIGHT V1, 40+ ms S IN I/aVL/V4/V5/V6] LEFT ANTERIOR FASCICULAR BLOCK [QRS AXIS <= -45, QR IN I, RS IN II] VOLTAGE CRITERIA FOR LVH [MEETS CRITERIA IN ONE OF: R(aVL), S(V1), R(V5), R(V5/V6)+S(V1)] POSSIBLE SEPTAL MYOCARDIAL INFARCTION , PROBABLY OLD [30 ms Q WAVE IN V1/V2] ABNORMAL ECG No change compared to prior EKG Electronically Signed By: Dilip Porras MD [facility] us Loyda Henriquez MD ECG ORDERABLES Final Result [facility] * AL ARTHROCENTESIS ASPIR&/INJ MAJOR JT/BURSA W/O US (12/30/2024 1:45 PM CDT) Narrative Zachary Klein MD - 12/30/2024 1:45 PM CDT Zachary Klein MD 12/30/2024 2:58 PM Greater trochanteric bursa injection Performed by: Zachary Klein MD Authorized by: Zachary Klein MD Greater Trochanteric Bursa Injection: Consent Given by: Patient Site marked: the procedure site was marked Timeout: prior to procedure the correct patient, procedure, and site was verified Verbal consent obtained?: Yes Prior to the start of the procedure, verbal verification by the procedure participant(s) confirmed (as applicable): corect patient idenity; correct site/side marked and visible; agreement on the procedure to be done; correct patient positioning; an accurate procedure consent form, relevant images and results correctly labeled and displayed; any safety precautions based on clinical history and/or medication use have been addressed.: Supporting Documentation: Indications: Pain and therapeutic Procedure Details: Site: Right Greater Trochanteric Bursa Prep: patient was prepped and draped in usual sterile fashion Patient position: Sidelying Needle Size: 22 G Ultrasound guidance: No Approach: Lateral Medications: 80 mg methylPREDNISolone acetate 80 mg/mL; 4 mL lidocaine 20 mg/mL (2 %) Patient tolerance: Patient tolerated the procedure well with no immediate complications us Zachary Klein MD IN CLINIC/BEDSIDE ORDERA BLES Final Result * NM MPI SPECT (Rest and/or Stress) Multiple Studies (12/29/2024 8:55 AM CDT) Anatomical Region Laterality Modality Body N/A Nuclear Medicine 12/29/2024 7:26 AM CDT Narrative 12/29/2024 2:00 PM CDT [address] [address] [employer]ikine Report Patient Name: YOKO JI L : 1935 Study Date: 12/29/2024 7:26:05 AM Gender: M Tech: Ref Provider: MISSY JHAVERI Height(Cm): BSA: Weight(Kg): Order Provider: MISSY JHAVERI PROCEDURES: Pharmacologic SPECT Report.: Myocardial perfusion imaging with Sestamibi SPECT at rest and post regadenoson (Lexiscan) infusion. INDICATIONS: I50.32 Chronic diastolic (congestive) heart failure. FINDINGS: Procedure Data: Sestamibi injected at rest was 10.3 millicuries Sestamibi injected at peak exercise was 30.5 millicuries Predicted Maximal HR 133 bpm LV Function: Left ventricular ejection fraction is 63 %. CONCLUSIONS: 1. Myocardial Perfusion: Abnormal:. 2. There is a small moderate intense inferolateral wall reversible perfusion defect likely consistent with ischemia in the left circumflex artery distribution present. 3. Left ventricle: Normal size and systolic function (visually confirmed EF >50%). Electronically Signed By: Missy Jhaveri MD 12/29/2024 1:32:41 PM CDT Procedure Note Missy Jhaveri MD - 12/29/[address] [address] Lexiscan Report Patient Name: YOKO JI L : 1935 Study Date: 12/29/2024 7:26:05 AM Gender: M Tech: Ref Provider: MISSY JHAVERI Height(Cm): BSA: Weight(Kg): Order Provider: MISSY JHAVERI PROCEDURES: Pharmacologic SPECT Report.: Myocardial perfusion imaging with Sestamibi SPECT at rest and postregadenoson (Lexiscan) infusion. INDICATIONS: I50.32 Chronic diastolic (congestive) heart failure. FINDINGS: Procedure Data: Sestamibi injected at rest was 10.3 millicuries Sestamibi injected at peak exercise was 30.5 millicuries Predicted Maximal HR 133 bpm LV Function: Left ventricular ejection fraction is 63 %. CONCLUSIONS: 1. Myocardial Perfusion: Abnormal:. 2. There is a small moderate intense inferolateral wall reversibleperfusion defect likely consistent with ischemia in the left circumflex artery distributionpresent. 3. Left ventricle: Normal size and systolic function (visually confirmedEF >50%). Electronically Signed By: Missy Jhaveri MD 12/29/2024 1:32:41 PM CDT [facility] Final Re sult * Stress Test for Myocardial Perfusion (12/29/2024 8:55 AM CDT) Anatomical Region Laterality Modality Nuclear Medicine 12/29/2024 7:45 AM CDT Narrative 12/29/2024 9:00 AM CDT [address] [place] [address] Lexiscan Report Patient Name: YOKO JI L : 1935 Study Date: 12/29/2024 7:45:00 AM Gender: M Tech: Jermain Gerber Ref Provider: MISSY JHAVERI Height(Cm): 163 BSA: 3.04 Weight(Kg): 204 Heart Rate: 113 Order Provider: MISSY JHAVERI PROCEDURES: Pharmacologic SPECT Report.: Myocardial perfusion imaging with Sestamibi SPECT at rest and post regadenoson (Lexiscan) infusion. INDICATIONS: I50.32 Chronic diastolic (congestive) heart failure. FINDINGS: Procedure Data: Resting HR 76 bpm Peak HR: 92 bpm Predicted Maximal HR 133 bpm Target HR: 113 bpm Percent Max Predicted HR Achieved: 69.17 % Baseline BP: 149/77 mmHg Peak BP: 116/74 mmHg Exercise Time: 00:10 Medications: Free Text. Performed By: Supervising Physician: The Supervising Physician is ananda hampton. Reason for Termination: Lexiscan protocol complete. Resting ECG: Normal sinus rhythm at 76 beats per minute, PVC, right bundle branch block, left axis deviation, poor R-wave progression, LVH. Post Pharm ECG: No diagnostic ST changes. Arrhythmia: Rare PVCs. Cardiac Symptoms With Stress: Symptoms with stress were Chest pain. Exam Interpreted: Read by . CONCLUSIONS: 1. Negative Lexiscan pharmacologic stress test for chest pain or EKG changes. 2. Nuclear images are pending and they will be reported separately. Electronically Signed By: Dr Ananda Hampton 12/29/2024 8:27:54 AM CDT Procedure Note Ananda Hampton MD - 12/29/[address] [place] [address] Lexiscan Report Patient Name: YOKO JI L : 1935 Study Date: 12/29/2024 7:45:00 AM Gender: M Tech: Jermain Barnhart [place] Ref Provider: MISSY JHAVERI Height(Cm): 163 BSA: 3.04 Weight(Kg): 204 Heart Rate: 113 Order Provider: MISSY JHAVERI PROCEDURES: Pharmacologic SPECT Report.: Myocardial perfusion imaging with Sestamibi SPECT at rest and postregadenoson (Lexiscan) infusion. INDICATIONS: I50.32 Chronic diastolic (congestive) heart failure. FINDINGS: Procedure Data: Resting HR 76 bpm Peak HR: 92 bpm Predicted Maximal HR 133 bpm Target HR: 113 bpm Percent Max Predicted HR Achieved: 69.17 % Baseline BP: 149/77 mmHg Peak BP: 116/74 mmHg Exercise Time: 00:10 Medications: Free Text. Performed By: Supervising Physician: The Supervising Physician is ananda hampton. Reason for Termination: Lexiscan protocol complete. Resting ECG: Normal sinus rhythm at 76 beats per minute, PVC, right bundle branchblock, left axis deviation, poor R-wave progression, LVH. Post Pharm ECG: No diagnostic ST changes. Arrhythmia: Rare PVCs. Cardiac Symptoms With Stress: Symptoms with stress were Chest pain. Exam Interpreted: Read by . CONCLUSIONS: 1. Negative Lexiscan pharmacologic stress test for chest pain or EKGchanges. 2. Nuclear images are pending and they will be reported separately. Electronically Signed By: Dr Ananda Hampton 12/29/2024 8:27:54 AM CDT us Missy Jhaveri MD CV STRESS PROCEDURES Final Result * (ABNORMAL) eGFR (12/03/2024 8:56 AM CDT) eGFR 45(L) >=60 mL/min/1. 73 m2 Comment: Interpretive Data Reference Interval Normal >/= 90 mL/min/1.73m2 Mildly decreased* 60 - 89 mL/min/1.73m2 Mildly to moderately decreased 45 - 59 mL/min/1.73m2 Moderately to severely decreased 30 - 44 mL/min/1.73m2 Severely decreased 15 - 29 mL/min/1.73m2 Kidney Failure < 15 mL/min/1.73m2 *Relative to young adult level Estimated glomerular filtration rate is determined by the 2020 CKD-EPI equation recommended by the National Kidney Foundation (A Unifying Approach to GFR Estimation: Recommendations of the NKF-ASK Task Force on Reassessing the Inclusion of Race in Diagnosing Kidney Disease, JASN 2020). The CKD-EPI equation should not be used for patients with unstable renal function and has not been validated in children and those over 70. Current interpretive data was last reviewed 2021. Testing performed by: [address] [address] Blood 12/03/2024 8:56 AM CDT 12/03/2024 1:58 PM CDT us Valentina Iniguez NP LAB BLOOD ORDERABLES Final Re sult [facility] ([place]) 1 [facility] of [facility] [place], [place] [id number] * Differential, auto (12/03/2024 8:56 AM CDT) Neutrophil abs 4.59 1.50 - 6.50 K/cumm Comment:Testing performed by : [address] [address] Imm gran abs 0.03 0.00 - 0.10 K/cumm [facility] ([place]) Comment:Testing performed by : [facility], [address] [place] [address]., [id number] Lymphocyte abs 1.11 0.80 - 3.30 K/cumm [facility] ([place]) Comment:Testing performed by : [facility], [address] [place] [address]., [id number] Monocyte abs 0.62 0.20 - 0.80 K/cumm [facility] ([place]) Comment:Testing performed by : [facility], [address] [place] [address], [id number] Eosinophil abs 0.19 0.00 - 0.50 K/cumm [facility] ([place]) Comment:Testing performed by : [facility], [address] [place] [address]., [address] Basophil abs 0.05 0.00 - 0.10 K/cumm [facility] ([place]) Comment:Testing performed by : [facility], [address] [place] [address]., [address] Neutrophil pct 69.6 % [facility] ([place]) Comment: Interpretive Data Percent cell count reference ranges are not reported, since discordance with absolute values may lead to misinterpretation of CBC data. Current Interpretive Data was last revised on 2017. Testing performed by: [address] [address] Imm gran pct 0.5 % [facility] ([place]) Comment: Interpretive Data Percent cell count reference ranges are not reported, since discordance with absolute values may lead to misinterpretation of CBC data. Current Interpretive Data was last revised on 2017. Testing performed by: [address] [address] Lymphocyte pct 16.8 % [facility] ([place]) Comment: Interpretive Data Percent cell count reference ranges are not reported, since discordance with absolute values may lead to misinterpretation of CBC data. Current Interpretive Data was last revised on 2017. Testing performed by: [facility], [address] [place] [address]., [id number] Monocyte pct 9.4 % [facility] ([place]) Comment: Interpretive Data Percent cell count reference ranges are not reported, since discordance with absolute values may lead to misinterpretation of CBC data. Current Interpretive Data was last revised on 2017. Testing performed by: [facility], [address] [place] [address]., [id number] Eosinophil pct 2.9 % [facility] ([place]) Comment: Interpretive Data Percent cell count reference ranges are not reported, since discordance with absolute values may lead to misinterpretation of CBC data. Current Interpretive Data was last revised on 2017. Testing performed by: [facility], [address] [place] [address]., [address] Basophil pct 0.8 % [facility] ([place]) Comment: Interpretive Data Percent cell count reference ranges are not reported, since discordance with absolute values may lead to misinterpretation of CBC data. Current Interpretive Data was last revised on 2017. Testing performed by: [address], [address] Blood 12/03/2024 8:56 AM CDT 12/03/2024 1:48 PM CDT Valentina Iniguez MEDICAL EXAMINER LAB BLOOD ORDERABLES Final Re sult [facility] ([place]) 1 [facility] [place] [address] * (ABNORMAL) CBC with auto differential (12/03/2024 8:56 AM CDT) WBC 6.59 3.80 - 9.90 K/cumm Comment:Testing performed by : [facility], [address] [place] [address], [address] Hgb 13.8 13.0 - 17.5 g/dL [facility] ([place]) Comment:Testing performed by : [address] [address] Hct 43.4 38.9 - 50.3 % [facility] ([place]) Comment:Testing performed by : [address] [address] Plt 221 150 - 400 K/cumm [facility] ([place]) Comment:Testing performed by : [address], [address] MPV 10.4 9.1 - 12.3 fL [facility] ([place]) Comment:Testing performed by : [facility], [address] [place] [address], [id number] RBC 4.39 4.30 - 5.80 M/cumm [facility] ([place]) Comment:Testing performed by : [facility], [address] [place] [address], [address] MCV 98.9(H) 81.3 - 96.4 fL [facility] ([place]) Comment:Testing performed by : [facility], [address] [place] [address], [address] MCH 31.4 27.1 - 33.3 pg [facility] ([place]) Comment:Testing performed by : [address], [address] MCHC 31.8(L) 32.3 - 35.7 g/dL [facility] ([place] Comment:Testing performed by : [address], [address] RDW CV 13.3 11.1 - 14.9 % [facility] ([place] Comment:Testing performed by : [address], [address] RDW SD 48.7(H) 35.7 - 48.1 fL [facility] ([place]) Comment:Testing performed by : [address], [address] NRBC abs 0.00 0.00 - 0.01 K/cumm [facility] ([place]) Comment:Testing performed by : [address], [address] Blood 12/03/2024 8:56 AM CDT 12/03/2024 1:48 PM CDT us Valentina Iniguez NP LAB BLOOD ORDERABLES Final Re sult [facility] ([place] [place] [address] * (ABNORMAL) Comprehensive metabolic panel (12/03/2024 8:56 AM CDT) Sodium 141 135 - 145 mmol/L Comment:Testing performed by : [facility], [address] [place] [address]., [address] Potassium, pl 4.1 3.3 - 4.9 mmol/L [facility] ([place]) Comment:Testing performed by : [facility], [address] [place] [address]., [address] Chloride 106 97 - 110 mmol/L [facility] ([place]) Comment:Testing performed by : [facility], [address] [place] [address]., [address] CO2 23 22 - 32 mmol/L [facility] ([place]) Comment:Testing performed by : [facility], [address] [place] [address]., [address] Anion gap 12 2 - 15 mmol/L [facility] ([place]) Comment:Testing performed by : [facility], [address] [place] [address]., [address] BUN 24 6 - 25 mg/dL [facility] ([place]) Comment:Testing performed by : [address] [address] Creatinine 1.50(H) 0.80 - 1.30 mg/dL [facility] ([place]) Comment:Testing performed by : [address] [address] Glucose 131 70 - 199 mg/dL [facility] ([place]) Comment: Interpretive Data Fasting glucose >/= 126 mg/dl is diagnostic for diabetes. Fasting is defined as no caloric intake for at least 8 hours. Fasting glucose between 100 mg/dl to 125 mg/dl is diagnostic of prediabetes. In a patient with classic symptoms of hyperglycemia or hyperglycemic crisis, a random glucose >/= 200 mg/dl is diagnostic for diabetes. In the absence of unequivocal hyperglycemia, results should be confirmed by repeat testing. The classification and Diagnosis of Diabetes Diabetes Care 2021; 46: S19-S40. Current interpretive data was last revised 2022. Testing performed by: [address] [address] Calcium 9.0 8.5 - 10.3 mg/dL [facility] ([place]) Comment:Testing performed by : [address], [address] Bilirubin, total 0.4 0.1 - 1.2 mg/dL [facility] ([place]) Comment:Testing performed by : [facility], [address] [place] [address]., [address] Protein, pl 6.3(L) 6.5 - 8.5 g/dL [facility] ([place] Comment:Testing performed by : [facility], [address] [place] [address], [address] Albumin 3.8 3.5 - 5.0 g/dL [facility] ([place]) Comment:Testing performed by : [facility], [address] [place] [address], [address] Alk phos 125 40 - 130 Units/L [facility] ([place]) Comment:Testing performed by : [address], [address] ALT 19 7 - 55 Units/L [facility] ([place]) Comment:Testing performed by : [facility], [address] [place] [address], [address] AST 26 10 - 50 Units/L [facility] ([place]) Comment:Testing performed by : [address], [address] Blood 12/03/2024 8:56 AM CDT 12/03/2024 1:48 PM CDT Valentina Iniguez MEDICAL EXAMINER LAB BLOOD ORDERABLES Final Re sult [facility] ([place]) [facility] Department [place] [address] * (ABNORMAL) eGFR (11/17/2024 10:52 AM CDT) eGFR 42(L) >=60 mL/min/1. 73 m2 Comment: Interpretive Data Reference Interval Normal >/= 90 mL/min/1.73m2 Mildly decreased* 60 - 89 mL/min/1.73m2 Mildly to moderately decreased 45 - 59 mL/min/1.73m2 Moderately to severely decreased 30 - 44 mL/min/1.73m2 Severely decreased 15 - 29 mL/min/1.73m2 Kidney Failure < 15 mL/min/1.73m2 *Relative to young adult level Estimated glomerular filtration rate is determined by the 2020 CKD-EPI equation recommended by the National Kidney Foundation (A Unifying Approach to GFR Estimation: Recommendations of the NKF-ASK Task Force on Reassessing the Inclusion of Race in Diagnosing Kidney Disease, JASN 202). The CKD-EPI equation should not be used for patients with unstable renal function and has not been validated in children and those over 70. Current interpretive data was last reviewed 2021. Blood 11/17/2024 10:5 2 AM CDT 11/17/2024 3:13 PM CDT us Valentina Iniguez NP LAB BLOOD ORDERABLES Final Re sult [facility] [address] [address] Department [place] [address] * Differential, auto (11/17/2024 10:52 AM CDT) Neutrophil abs 4.68 1.50 - 6.50 K/cumm Imm gran abs 0.03 0.00 - 0.10 K/cumm [facility] Lymphocyte abs 1.55 0.80 - 3.30 K/cumm [facility] Monocyte abs 0.71 0.20 - 0.80 K/cumm [facility] Eosinophil abs 0.15 0.00 - 0.50 K/cumm [facility] Basophil abs 0.04 0.00 - 0.10 K/cumm [facility] Neutrophil pct 65.4 % [facility] Comment: Interpretive Data Percent cell count reference ranges are not reported, since discordance with absolute values may lead to misinterpretation of CBC data. Current Interpretive Data was last revised on 2017. Imm gran pct 0.4 % [facility] Comment: Interpretive Data Percent cell count reference ranges are not reported, since discordance with absolute values may lead to misinterpretation of CBC data. Current Interpretive Data was last revised on 2017. Lymphocyte pct 21.6 % [facility] Comment: Interpretive Data Percent cell count reference ranges are not reported, since discordance with absolute values may lead to misinterpretation of CBC data. Current Interpretive Data was last revised on 2017. Monocyte pct 9.9 % [facility] Comment: Interpretive Data Percent cell count reference ranges are not reported, since discordance with absolute values may lead to misinterpretation of CBC data. Current Interpretive Data was last revised on 2017. Eosinophil pct 2.1 % [facility] Comment: Interpretive Data Percent cell count reference ranges are not reported, since discordance with absolute values may lead to misinterpretation of CBC data. Current Interpretive Data was last revised on 2017. Basophil pct 0.6 % [facility] Comment: Interpretive Data Percent cell count reference ranges are not reported, since discordance with absolute values may lead to misinterpretation of CBC data. Current Interpretive Data was last revised on 2017. Blood 11/17/2024 10:5 2 AM CDT 11/17/2024 3:02 PM CDT us Valentina Iniguez NP LAB BLOOD ORDERABLES Final Re sult [facility] [address] [address] Department [place] [address] * (ABNORMAL) CBC with auto differential (11/17/2024 10:52 AM CDT) WBC 7.16 3.80 - 9.90 K/cumm Hgb 13.7 13.0 - 17.5 g/dL [facility] Hct 42.8 38.9 - 50.3 % [facility] Plt 282 150 - 400 K/cumm [facility] MPV 10.1 9.1 - 12.3 fL [facility] RBC 4.31 4.30 - 5.80 M/cumm [facility] MCV 99.3(H) 81.3 - 96.4 fL [facility] MCH 31.8 27.1 - 33.3 pg [facility] MCHC 32.0(L) 32.3 - 35.7 g/dL [facility] RDW CV 13.2 11.1 - 14.9 % [facility] RDW SD 48.5(H) 35.7 - 48.1 fL [facility] NRBC abs 0.00 0.00 - 0.01 K/cumm [facility] Blood 11/17/2024 10:5 2 AM CDT 11/17/2024 3:02 PM CDT us Valentina Iniguez NP LAB BLOOD ORDERABLES Final Re sult [facility] [address] [address] Department of Laboratories [place] [id number] * Lipid panel (11/17/2024 10:52 AM CDT) Cholesterol 174 30 - 199 mg/dL Comment: Interpretive Data Ages < or = 19 years Acceptable: <170 mg/dL Borderline high: 170-199 mg/dL High: >or= 200 mg/dL Ages > or = 20 years Desirable: <200 mg/dL Borderline high: 200-239 mg/dL High: >or= 240 mg/dL Literature References: 1. Expert Panel on Integrated Guidelines for Cardiovascular Health and Risk Reduction in Children and Adolescents. Pediatrics 2011;128:S213 2. NCEP Expert Panel. Circulation 2004;110:227 Current Interpretive Data was last revised on 2018. Triglycerides 103 <=149 mg/dL [facility] Comment: Interpretive Data Ages < or = 9 years Acceptable: <75 mg/dL Borderline high: 75-99 mg/dL High: >or= 100 mg/dL Ages 10 to 20 years Acceptable: <90 mg/dL Borderline high: 90-129 mg/dL High: >or= 130 mg/dL Ages > or = 20 years Desirable: <150 mg/dL Borderline high: 150-199 mg/dL High: 200-499 mg/dL Very high: >or= 499 mg/dL Literature References: 1. Expert Panel on Integrated Guidelines for Cardiovascular Health and Risk Reduction in Children and Adolescents. Pediatrics 2011;128:S213 2. NCEP Expert Panel. Circulation 2004;110:227 Current Interpretive Data was last revised on 2018. HDL 51 >=40 mg/dL [facility] Comment: Interpretive Data Ages < or = 19 years Acceptable: >45 mg/dL Borderline low: 40-45 mg/dL Low: <40 mg/dL Ages > or = 20 years Desirable: >or= 60 mg/dL Low: <40 mg/dL Literature References: 1. Expert Panel on Integrated Guidelines for Cardiovascular Health and Risk Reduction in Children and Adolescents. Pediatrics 2011;128:S213 2. NCEP Expert Panel. Circulation 2004;110:227 Current Interpretive Data was last revised on 2018. LDL, calculated 104 <=129 mg/dL [facility] Comment: Interpretive Data Ages < or = 19 years Acceptable: <110 mg/dL Borderline high: 110-129 mg/dL High: >or= 130 mg/dL Ages > or = 20 years Optimal: <100 mg/dL Near optimal: 100-129 mg/dL Borderline high: 130-159 mg/dL High: >160 mg/dL Calculated using the Ousmane LDL-C estimating equation. This equation was implemented on 2024. Prior to this date LDL-C was estimated using the Friedewald equation. Literature References: 1. Expert Panel on Integrated Guidelines for Cardiovascular Health and Risk Reduction in Children and Adolescents. Pediatrics 2011;128:S213 2. NCEP Expert Panel. Circulation 2004;110:227 3. Ousmane Rodríguez et al. RICKIE Cardiol. 2019October 07;5(5):540-548. doi: 10.1001/jamacardio.2020.0013 Current Interpretive Data was last revised on 2024. Non-HDL Cholesterol 123 mg/dL [facility] Comment: Interpretive Data Ages < or = 19 years Acceptable: <120 mg/dL Borderline high: 120-144 mg/dL High: >145 mg/dL Ages > or = 20 years When triglycerides are >200 mg/dL, Non-HDL cholesterol is a secondary target of therapy with treatment goals that are 30 mg/dL greater than the LDL cholesterol target. Literature References: 1. Expert Panel on Integrated Guidelines for Cardiovascular Health and Risk Reduction in Children and Adolescents. Pediatrics 2011;128:S213 2. NCEP Expert Panel. Circulation 2004;110:227 Current Interpretive Data was last revised on 2018. Chol/HDL ratio 3 [facility] Blood 11/17/2024 10:5 2 AM CDT 11/17/2024 3:02 PM CDT us Valentina Iniguez NP LAB BLOOD ORDERABLES Final Re sult [facility] [place] [address] [address] Department [place] [address] * (ABNORMAL) Comprehensive metabolic panel (11/17/2024 10:52 AM CDT) Sodium 143 135 - 145 mmol/L Potassium, pl 4.2 3.3 - 4.9 mmol/L [facility] Chloride 106 97 - 110 mmol/L [facility] CO2 26 22 - 32 mmol/L [facility] Anion gap 11 2 - 15 mmol/L [facility] BUN 25 6 - 25 mg/dL [facility] Creatinine 1.58(H) 0.80 - 1.30 mg/dL [facility] Glucose 99 70 - 199 mg/dL [facility] Comment: Interpretive Data Fasting glucose >/= 126 mg/dl is diagnostic for diabetes. Fasting is defined as no caloric intake for at least 8 hours. Fasting glucose between 100 mg/dl to 125 mg/dl is diagnostic of prediabetes. In a patient with classic symptoms of hyperglycemia or hyperglycemic crisis, a random glucose >/= 200 mg/dl is diagnostic for diabetes. In the absence of unequivocal hyperglycemia, results should be confirmed by repeat testing. The classification and Diagnosis of Diabetes Diabetes Care 2021; 46: S19-S40. Current interpretive data was last revised 2022. Calcium 8.8 8.5 - 10.3 mg/dL [facility] Bilirubin, total 0.4 0.1 - 1.2 mg/dL [facility] Protein, pl 6.4(L) 6.5 - 8.5 g/dL [facility] Albumin 3.8 3.5 - 5.0 g/dL [facility] Alk phos 120 40 - 130 Units/L [facility] ALT 30 7 - 55 Units/L [facility] AST 29 10 - 50 Units/L [facility] Blood 11/17/2024 10:5 2 AM CDT 11/17/2024 3:02 PM CDT us Valentina Iniguez NP LAB BLOOD ORDERABLES Final Re sult [facility] [place] [address] [address] Department [place] [address] from Last 3 Months Insurance MEDICARE [facility] Member Subscriber Plan / Payer ( fective 2014-Present) Name:Ji Yoko Kiko Relation to Subscriber:Self Name:Yoko Ji Payer ID:[id number] Group ID:[id number] Type:COMMERCIAL Address: [facility] [address] [place] [id number] MEDICARE [facility] Member Subscriber Plan / Payer ( fective 2017-Present) Name:Yoko Ji Relation to Subscriber:Self Name:Yoko Ji Payer ID:[id number] Group ID:[id number] Type:COMMERCIAL Address: [facility] [address] [place] [phone] MEDICARE [facility] Member Subscriber Plan / Payer (Ef fective 2022-Present) Name:Yoko Ji Relation to Subscriber:Self Name:Yoko Ji Payer ID:[id number] Group ID:[id number] Type:COMMERCIAL Address: [address] [place] [phone] Advance Directives For more information, please contact: [phone] * Full Code (Latest Code Status on File) Date Activated Date Inactivated Comments 02/01/2025 9:24 AM 02/01/2025 6:51 PM * Full Code Date Activated Date Inactivated Comments 01/06/2025 12:25 PM 01/07/2025 5:24 PM * Full Code Date Activated Date Inactivated Comments 11/03/2024 8:49 PM 11/06/2024 5:41 PM Care Teams Casino Change Attendant Relationship Specialty Start Date End Date [place] [address] PCP - General Family Medicine 03/07/23 Naveen Rea MD Medical Oncologist/Aircraft Instrument Engineer Medical Oncology 01/26/19 Laila Saucedo, PT Physical Therapist Physical Therapy 12/26/21
--- OUTSIDE RECORDS SUMMARY | 2025-02-15 04:17 | XMS_ITS | Encounter Summary ---
Author Organization [facility] Healthcare Address [address] [place] [address] Care Team Providers Care Severity Of Illness Coordinator Name Role Phone Naveen Rea MD Unavailable Laila Saucedo PT Unavailable Unavaila ble Hira Pulliam MD Primary Care Provider [phone] Liliya Higgins RN Unavailable [phone] Reason for Visit * Reason Onset Date Comments Dizziness 01/11/2025 Encounter Details Date Type Department Care Team (Late st Contact Info) Description 01/11/2025 Nurse Triage [facility] [address] [address] Hira Pulliam MD [address] [place] [address] Social History Tobacco Use Types Packs/Day Years Used Date Smoking Tobacco: Former Cigarettes 1.5 6 1 947 - 1953 Smokeless Tobacco: Never Comments:Smoking History Pac ks/day: 1 Packs Alcohol Use Standard Drinks/Week Comments Yes 0 (1 standard drink = 0.6 oz pur e alcohol) occasionally [facility] Utilities Answer Date Recorded In the past 12 months has [employer] electric, gas, oil, or water company threatened to shut off services in your [...] often do you attend chur ch or amish services? Never 01/10/2025 Do you belong to any clubs o r organizations such as religious groups, unions, fraternal or athletic groups, or school groups? Yes 01/10/2025 How often do you attend meet ings of the clubs or organizations you belong to? 1 to 4 times per year 01/10/2025 Are you , , di vorced, , never , or living with a partner? 01/10/2025 AUDIT-C Answer Date Recorded Q1: How often do you have a drink containing alcohol? Never 01/06/2025 Q2: How many drinks containi ng alcohol do you have on a typical day when you are drinking? Patient does not drink Q3: How often do you have si x or more drinks on one occasion? Never 01/06/2025 Overall Financial Resource Strain (CARDIA) Answe r [...] any time in the past 12 m [facility], were you homeless or living in a residential (including now)? No 01/10/2025 Personal Safety Answer Date Recorded Have you ever been in or are you currently in a harmful physical or emotional relationship or is someone making you feel afraid or unsafe? 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 Thanks * Telephone Encounter - Kourtney Patel RN - 01/11/2025 11:18 AM CDT Reason for Conversation Dizziness Background ED/admission last with chest pain. Is scheduled to get cardiac cath 02/01. Dc Friday with new medications. Onset last Friday afternoon with dizziness, describes as lightheadedness/faint sensation. Chest pain is subsided now and thinks the pantoprazole helps this but can feel again later when pantoprazole seems to wear off. Seems to have the chest pain more after eating. Takes BP about 2 hours after taking BP meds in AM. Lightheadedness worsens after taking BP medications, after drinkingsome caffeine the fuzziness get improved. Morning BP 01/08: 103/59, 01/09: 101/58, 01/10: 117/70, this AM 120/71. Lightheadedness is much improved now but not totally gone. Denies one sided weakness or numbness, palpitations, slight tinge of chest pain today after eating breakfast (burning sensation). 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 Denies loss or double vision. Has more bruising since being on blood thinners, reasons for bruising noted such as hitting an arm, etc. no bleeding elsewhere, no black/tarry/bloody stools. Pt also states he has been more nervous recently, more anxiety ridden than normal. RN gave care advice and tasking for advice regarding recent lightheadedness. Pt also states he is not sleeping as well as he was with using alprazolam, reports issues getting to sleep and not sleepingas long. Pt to call if worsens. Disposition Discuss With PCP and Callback by Nurse Today Reason for Disposition Taking a medicine that could cause dizziness (e.g., blood pressure medications, diuretics) Protocols Used [id number] * Telephone Encounter - Kourtney Patel RN - 01/11/2025 11:17 AM CDT Regarding: Lightheadedness, Dizziness, Blood Pressure Concerns ----- Message from Jennifer Hoover sent at 01/11/2025 11:15 AM CDT ----- Symptom Based Call Chief Complaint(s): Lightheadedness, Dizziness, Blood Pressure Concerns Duration: Since Friday but seem to be getting a little better What type of symptom(s) is the patient experiencing? Red Flag. Is the patient concerned they are experiencing a medical emergency requiring an ambulance? No Additional Comments: Patient was on a new blood pressure medication and that's when the symptoms started. Patient stated that he had initially stopped taken losartan when he started the new medication,pantoprazole DR and NIFEdipine (PROCARDIA XL/ADALAT CC). The most recent blood pressure readings have been 103/59 on 01/08, 101/58 on 01/09, 117/70 on 01/10, 120/71 on 01/11. Does message need to be routed? Yes-Action Needed documented in this encounter Plan of Treatment Not on file documented as of this encounter Visit Diagnoses Not on filedocumented in this encounter Care Teams Severity Of Illness Coordinator Relationship Specialty Start Date End Date Hira Pulliam MD [address] [place] [address] PCP - General Family Medicine 03/07/23 Naveen Rea MD Medical Oncologist/Typesetting Machine Tender Medical Oncology 01/26/19 Laila Saucedo, PT Physical Therapist Physical Therapy 12/26/21 Liliya Higgins RN [address] [place] [address] [address] [place] [address] Electorate Officer 01/10/25 02/09/25 documented as of this encounter
--- OUTSIDE RECORDS SUMMARY | 2025-02-15 04:17 | XMS_ITS | Encounter Summary ---
Author Organization [facility] Address [address] [place] [address] Phone Care Team Providers Care Bus Aide Name Role Phone Naveen Rea MD Unavailable Laila Saucedo PT Unavailable Unavaila Hira Castano MD Primary Care Provider [phone] China Lombardo RN Unavailable [phone] Liliya Higgins RN Unavailable [phone] Encounter Details Date Type Department Care Team (Late st Contact Info) Description 05/11/2024 Telephone [facility] Medicine Scheduling [address] [place] [address] Cynthia Mike Social History Tobacco Use Types Packs/Day Years Used Date Smoking Tobacco: Former Cigarettes 1.5 6 1 947 - 1951 Smokeless Tobacco: Never Comments:Smoking History Pac ks/day: 1 Packs Alcohol Use Standard Drinks/Week Comments Yes 0 (1 standard drink = 0.6 oz pur e alcohol) occasionally AUDIT-C Answer Date Recorded Q1: How often do you have a drink containing alc ohol? 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 Gender Identity Not on file Sexual Orientation Not on file documented as of this encounter Plan of Treatment Not on file documented as of this encounter Visit Diagnoses Not on filedocumented in this encounter Additional Health Concerns Infection Onset Date Last Indicated Resolved Time COVID: Suspected 09/22/2024 09/22/2024 09/22/2024 11:44 AM CDT documented as of this encounter Care Teams Bus Aide Relationship Specialty Start Date End Date Hira Pulliam MD [address] [place] [address] PCP - General Family Medicine 03/07/23 Naveen Rea MD Medical Oncologist/Associate Professor Of Geology Medical Oncology 01/26/19 Laila Saucedo, PT Physical Therapist Physical Therapy 12/26/21 China Lombardo RN [address] [place] [address] [address] [place], [place] [id number] Egg Processing Supervisor 11/08/24 12/07/24 Liliya Higgins RN [address] [place] [address] [address] [place] [address] Egg Processing Supervisor 01/10/25 02/09/25 documented as of this encounter
--- OUTSIDE RECORDS SUMMARY | 2025-02-15 04:56 | XMS_ITS | Encounter Summary ---
Author Organization [facility] Healthcare Address [address] [place] [address] Care Team Providers Care Lead Maintenance Technician Name Role Phone Naveen Rea MD Unavailable Laila Saucedo PT Unavailable Unavaila ble Hira Pulliam MD Primary Care Provider [phone] Liliya Higgins RN Unavailable [phone] Reason for Visit * Reason Onset Date Comments Dizziness 01/11/2025 Encounter Details Date Type Department Care Team (Late st Contact Info) Description 01/11/2025 Nurse Triage [facility] [address] [address] Hira Pulliam MD [address] [place] [address] Social History Tobacco Use Types Packs/Day Years Used Date Smoking Tobacco: Former Cigarettes 1.5 6 1 947 - 1951 Smokeless Tobacco: Never Comments:Smoking History Pac ks/day: 1 Packs Alcohol Use Standard Drinks/Week Comments Yes 0 (1 standard drink = 0.6 oz pur e alcohol) occasionally [facility] Utilities Answer Date Recorded In the past 12 months has [employer] electric, gas, oil, or water company threatened [...] often do you attend chur ch or alevism services? Never 01/10/2025 Do you belong to any clubs o r organizations such as baptist groups, unions, fraternal or athletic groups, or [...] any time in the past 12 m [facility], were you homeless or living in a care home (including now)? No 01/10/2025 Personal Safety Answer Date Recorded Have you ever been in or are you currently in a harmful physical or emotional relationship or is someone making you feel afraid or unsafe? 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 Gender Identity Not on file Sexual Orientation [...] (e.g., blood pressure medications, diuretics) Protocols Used [id number] * Telephone Encounter - Kourtney Patel RN [...] on filedocumented in this encounter Care Teams Lead Maintenance Technician Relationship Specialty Start Date End Date Hira Pulliam MD [address] [place] [address] PCP - General Family Medicine 03/07/23 Naveen Rea MD Medical Oncologist/Hinging Machine Operator Medical Oncology 01/26/19 Laila Saucedo, PT Physical Therapist Physical Therapy 12/26/21 Liliya Higgins RN [address] [place] [address] [address] [place] [id number] Clip On Sunglasses Inspector 01/10/25 02/09/25 documented as of this encounter
--- OUTSIDE RECORDS SUMMARY | 2025-02-15 04:56 | XMS_ITS | Encounter Summary ---
Author Organization [facility] Address [address] [place] [address] Phone Care Team Providers Care Supervisor Roving Department Name Role Phone Hira Pulliam MD Primary Care Provider [phone] Naveen Rea MD Unavailable Laila Saucedo PT Unavailable Unavaila Maykel Styles MD Primary Care Provider + Hira Pulliam MD Primary Care Provider [phone] China Lombardo RN Unavailable [phone] Liliya Higgins RN Unavailable [phone] Encounter Details Date Type Department Care Team (Late st Contact Info) Description 12/30/2019 Telephone [facility] Bone Marrow Transplant [facility] 7th Floor, [place] [address] Roland De Social History Tobacco [...] on file 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 Gender Identity Not on file Sexual Orientation Not on file documented as of this encounter Plan of Treatment Not on file documented as of this encounter Visit Diagnoses Not on filedocumented in this encounter Additional Health Concerns Infection Onset Date Last Indicated Resolved Time COVID: Suspected 09/22/2024 09/22/2024 09/22/2024 11:44 AM CDT documented as of this encounter Care Teams Supervisor Roving Department Relationship Specialty Start Date End Date Hira Pulliam MD [address] [place] [address] PCP - General Family Medicine 12/23/18 03/03/23 Maykel Conley MD PCP - General Cardiology 03/04/23 03/06/23 Hira Pulliam MD [address] [place] [address] PCP - General Family Medicine 03/07/23 Naveen Rea MD [address] [place] [address] Medical Oncologist/Pier Hand Helper Medical Oncology 01/26/19 Laila Saucedo, PT Physical Therapist Physical Therapy 12/26/21 China Lombardo, BRAEDEN [address] [place] [address] [address] [place] [address] Policy Specialist 11/08/24 12/07/24 Liliya Higgins RN [address] [place] [address] [address] [place] [address] Policy Specialist 01/10/25 02/09/25 documented as of this encounter
--- OUTSIDE RECORDS SUMMARY | 2025-02-15 04:56 | XMS_ITS ---
Author Organization [facility] Address [address] [place] [address] Care Team Providers Care Trip Motor Operator Name Role Phone Naveen Rea MD Unavailable Laila Saucedo PT Unavailable Unavaila Hira Castano MD Primary Care Provider [phone] Active Problems Problem Noted Date Diagnosed Date [...] and continue on Eliquis. Will be seeing Ophthalmic Nurse on 12/14/2024. Orders: Comprehensive metabolic panel; Future [...] 2023 Assessment & Plan (08/03/2024 8:58 AM CAR SUPERVISOR): Stable on dual agent therpay with memantine and donepezil. Chronic heart failure with preserved ejection fr action 2023 Assessment & Plan (09/22/2024 2:51 PM CDT): Chest x-ray and BNP today. Will plan accordingly once results are received. Red flags reviewed as well. Continue following with cardiology. Assessment & Plan (08/03/2024 8:58 AM CAR SUPERVISOR): Stsabl abhishek lsoartan. NO s/s of fluid [...] monitor. Assessment & Plan (08/03/2024 8:58 AM CAR SUPERVISOR): COntinue on f/u with urology. Tripel therapy [...] monitor. Assessment & Plan (08/03/2024 8:57 AM CAR SUPERVISOR): Continue f/ with orthopedics and specialty care. [...] Future Assessment & Plan (08/03/2024 8:59 AM CAR SUPERVISOR): REviqwed bp control and avoidance of nephrotoxic agents. 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 Assessment & [...] 02/09/2019 Assessment & Plan (08/03/2024 8:57 AM CAR SUPERVISOR): Continue f/u with BMT. NO bleeding, bruising [...] day Assessment & Plan (05/21/2019 1:37 PM CAR SUPERVISOR): Continue Protonix and Pepcid Follow up as [...] Plan (02/09/2019 10:32 AM CDT): To continue drow-zru-antkwxd antihistamine (Erika & singulair) & fviu-jxf-ffzwtql steroid nasal spray. Csft-sbf-jwknuzt allergy eye drops are available also. Discussed [...]
--- OUTSIDE RECORDS SUMMARY | 2025-02-15 04:56 | XMS_ITS | Encounter Summary ---
Author Organization [facility] Address [address] [place] [address] Phone Care Team Providers Care Delivery Assistant Name Role Phone Naveen Rea MD Unavailable Laila Saucedo PT Unavailable Unavaila Hira Castano MD Primary Care Provider [phone] China Lombardo RN Unavailable [phone] Liliya Higgins RN Unavailable [phone] Encounter Details Date Type Department Care Team (Late st Contact Info) Description 05/11/2024 Telephone [facility] Medicine Scheduling [address] [place] [address] Cynthia Mike Social History Tobacco Use Types [...] on file 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 Gender Identity Not on file Sexual Orientation Not on file documented as of this encounter Plan of Treatment Not on file documented as of this encounter Visit Diagnoses Not on filedocumented in this encounter Additional Health Concerns Infection Onset Date Last Indicated Resolved Time COVID: Suspected 09/22/2024 09/22/2024 09/22/2024 11:44 AM CDT documented as of this encounter Care Teams Delivery Assistant Relationship Specialty Start Date End Date Hira Pulliam MD [address] [place] [address] PCP - General Family Medicine 03/07/23 Naveen Rea MD Medical Oncologist/Lead Systems Engineer Medical Oncology 01/26/19 Laila Saucedo, PT Physical Therapist Physical Therapy 12/26/21 China Lombardo RN [address] [place] [address] [address] [place], [place] [id number] Wheel Roller 11/08/24 12/07/24 Liliya Higgins RN [address] [place] [address] [address] [place] [address] Wheel Roller 01/10/25 02/09/25 documented as of this encounter
--- NOTE | 2025-02-15 05:07 | ED.GENADULT ---
HPI - General Adult General Chief complaint: Extremity Problem,Nontraumatic Stated complaint: leg pain Time Seen by Provider: 02/15/25 04:31 History of Present Illness HPI narrative: This is an 89-year-old male presenting with right hip pain. Hip pain started earlier today. Starts in his right hip/gluten radiates down the back his leg. Patient says he has a history of arthritis. He has also had lower back surgery. Patient does not have any weakness to the leg, no bowel incontinence or urinary retention. No saddle anesthesia. No trauma. No history of cancer fevers. He has taken Tylenol with minimal relief. Related Data Home Medications ?Medication ?Instructions ?Recorded ?Confirmed ?Last Taken ?Type allopurinol 100 mg tablet 100 mg PO DAILY 02/17/23 02/26/23 Unknown History alprazolam 0.25 mg tablet 0.25 mg PO TID PRN Anxiety 02/17/23 02/26/23 Unknown History aspirin 81 mg tablet,delayed 81 mg PO DAILY 02/17/23 02/26/23 Unknown History release (Adult Low Dose Aspirin) donepezil 5 mg tablet 5 mg PO DAILY 02/17/23 02/26/23 Unknown History famotidine 20 mg tablet 20 mg PO DAILY 02/17/23 02/26/23 Unknown History fexofenadine 180 mg tablet 180 mg PO DAILY 02/17/23 02/26/23 Unknown History finasteride 5 mg tablet 5 mg PO DAILY 02/17/23 02/26/23 Unknown History losartan 25 mg tablet 25 mg PO DAILY 02/17/23 02/26/23 Unknown History tamsulosin 0.4 mg capsule 0.4 mg PO DAILY 02/17/23 02/26/23 Unknown History Allergies Allergy/AdvReac Type Severity Reaction Status Date / Time amlodipine AdvReac Unknown Verified 02/15/25 04:30 amoxicillin AdvReac Diarrhea Verified 02/15/25 04:30 enalapril AdvReac Unknown Verified 02/15/25 04:30 latex AdvReac Rash Verified 02/15/25 04:30 verapamil AdvReac Unknown Verified 02/15/25 04:30 zolpidem (From Ambien) AdvReac Agitated Verified 02/15/25 04:30 [facility] Past Medical History Medical History Left inguinal hernia Dementia Anxiety Gout Hypertension Surgical History Surgical History History of back surgery Family History Family History Father Hypertension Cerebral hemorrhage Mother Hypertension Sibling Hypertension Parkinsons Social History Social History Smoking packs per day: 1 Smoking cigarettes per day: 20.0 Years smoked: 4 Smoking pack-years: 4.00 Smoking status: Former smoker Alcohol intake: never Substance use type: does not use Lack of Transportation: YES Lack of Food: Never True Current Housing: I Have Housing Concerned About Future Housing: No Difficulty Paying Gas/Electric Bills: No Difficulty Paying for Meds: No Currently Unemployed: No Education: Master's Degree or Higher Difficulty w/ Childcare or Family Care: No Gender identity (if verbalized by the patient): Male Sexual Orientation (if Verbalized by the Patient): Straight or Heterosexual Spiritual care concerns: No Exam Narrative: APPEARANCE: No apparent distress. Head: atraumatic. EYES: EOMI, NOSE: Atraumatic NECK: Trachea midline RESPIRATORY: No increased rate of breathing CARDIOVASCULAR: RRR, +2 pulses in all extremities ABDOMINAL: Non-distended MUSCULOSKELETAl: Straight leg positive on the right negative on the left, no overlying skin changes, bruising, signs of infection NEURO: Alert. Moving 4/4 extremities no saddle anesthesia ankle strength intact SKIN:: Warm, dry. Normal color PSYCHIATRIC: Normal affect Course Vital Signs Vital signs: Vital Signs Temperature 97.6 F 02/15/25 04:22 Pulse Rate 60 02/15/25 04:22 Respiratory Rate 14 02/15/25 04:22 Blood Pressure 131/71 02/15/25 04:22 Pulse Oximetry 97 02/15/25 04:22 Oxygen Delivery Room Air 02/15/25 04:22 Temperature 97.6 F 02/15/25 04:22 Pulse Rate 60 02/15/25 04:22 Respiratory Rate 14 02/15/25 04:22 Blood Pressure 131/71 02/15/25 04:22 Pulse Oximetry 97 02/15/25 04:22 Oxygen Delivery Room Air 02/15/25 04:22 Medical Decision Making MDM Narrative Medical decision making narrative: -Course: 89-year-old presenting with atraumatic right thigh pain. Based on history physical is most likely musculoskeletal versus sciatica. X-rays were negative for acute bony injury. Legs are neurovascularly intact. Pain improved with pain medications. He will be discharged. Given primary care follow-up return precautions. -DDX includes but is not limited to: MSK pain, sciatica, paresthetica meralgia, arthritis Vital Signs Vital Signs: Vital Signs Temperature 97.6 F 02/15/25 04:22 Pulse Rate 60 02/15/25 04:22 Respiratory Rate 14 02/15/25 04:22 Blood Pressure 131/71 02/15/25 04:22 Pulse Oximetry 97 02/15/25 04:22 Oxygen Delivery Room Air 02/15/25 04:22 Temperature 97.6 F 02/15/25 04:22 Pulse Rate 60 02/15/25 04:22 Respiratory Rate 14 02/15/25 04:22 Blood Pressure 131/71 02/15/25 04:22 Pulse Oximetry 97 02/15/25 04:22 Oxygen Delivery Room Air 02/15/25 04:22 Discharge Plan Discharge Clinical Impression: Acute leg pain Patient Disposition: Home Condition: Stable Instructions: Antibiotic Form, Leg Pain (ED) Additional Instructions: You were seen in the emergency department for leg pain. Please use Tylenol Robaxin lidocaine patches as needed for pain. Please follow-up with your primary care physician in the next 3-5 days. If you develop severe pain or weakness your leg please return to the ED for re-evaluation. Patient Language: Grenadian Prescriptions: New acetaminophen 500 mg tablet 1,000 mg PO TID PRN (Reason: heath) 7 Days Qty: 42 0RF lidocaine 5 % adhesive patch,medicated 1 patch topical DAILY Qty: 15 0RF Rx Instructions: leave on most painful area for up to 12 hrs methocarbamol 750 mg tablet 1,500 mg PO TID Qty: 42 0RF No Action donepezil 5 mg tablet 5 mg PO DAILY alprazolam 0.25 mg tablet 0.25 mg PO TID PRN (Reason: Anxiety) famotidine 20 mg tablet 20 mg PO DAILY tamsulosin 0.4 mg capsule 0.4 mg PO DAILY losartan 25 mg tablet 25 mg PO DAILY finasteride 5 mg tablet 5 mg PO DAILY fexofenadine 180 mg Tablet 180 mg PO DAILY allopurinol 100 mg Tablet 100 mg PO DAILY aspirin [Adult Low Dose Aspirin] 81 mg Tablet,Delayed Release (Dr/Ec) 81 mg PO DAILY hydrocodone-acetaminophen 5-325 mg tablet 1 tablet PO Q6H PRN (Reason: pain) Qty: 20 0RF ciprofloxacin HCl [Cipro] 500 mg tablet 500 mg PO Q12H Qty: 14 0RF Follow-up/Referrals: Harms,Hira Patel M.D. [Primary Care Provider]
[2025-02-15] MEDS: LIDOCAINE 5% PATCH 1 PATCH TRANSDERM (05:16)
[2025-02-15] MEDS: oxyCODONE HCL (*CRX) 5 MG TAB IR PO (05:16)
[2025-02-15] MEDS: ACETAMINOPHEN 500 MG TABLET 1000 MG PO (05:16)
== END 2025-02-15 06:25 | disposition home or self-care (01) ==
PROVIDERS: Emergency Provider Emergency Medicine; PCP Family Medicine
DX: M79.651 Pain in right thigh (principal); F03.90 Unspecified dementia, unspecified severity, without behavioral disturbance, psychotic disturbance, mood disturbance, and anxiety; I10 Essential (primary) hypertension; M10.9 Gout, unspecified; M19.90 Unspecified osteoarthritis, unspecified site; F41.9 Anxiety disorder, unspecified; Z87.891 Personal history of nicotine dependence; Z79.82 Long term (current) use of aspirin; Z79.899 Other long term (current) drug therapy
CPT/HCPCS: 73502; 99283; A9270